=== PATIENT | female | born 1945 ===

== ENCOUNTER 2017-04-11 17:33 | Inpatient (IN) | payer MEDICARE, OTHER ==
[2017-04-11 17:46] VITALS: BMI 26.6
--- NOTE | 2017-04-11 17:51 | ED PDOC ---
Arrival/HPI - General Chief Complaint: Female Genitourinary Time Seen by Provider: 04/11/17 17:50 Historian: Family (daughter) - History of Present Illness Narrative History of Present Illness (Text): 04/11/17 17:50 This 71 yo female with pmh dementia, Stroke, DM, HTN, chf, s/p cardiac bypass, Peg tube, Shen catheter, sacral decubitus ulcer stage 4, is brought to this Emergency department by BLS for hematuria, and fever since this morning. Daughter stated patient look sick this morning. Daughter stated that patient recently moved to her house in [place]. Time/Duration: Other (see hpi) Context: Home Past Medical History - Provider Review Nursing Documentation Reviewed: Yes - Infectious Disease Hx of Infectious Diseases: None - Cardiac Hx Cardiac Disorders: Yes Hx Hypertension: Yes - Pulmonary Hx Respiratory Disorders: No - Neurological Hx Neurological Disorder: Yes HX Cerebrovascular Accident: Yes (oct 2016) Other/Comment: dysphagia - HEENT Hx HEENT Disorder: Yes Other/Comment: glasses - Endocrine/Metabolic Hx Endocrine Disorders: Yes Hx Diabetes Mellitus Type 2: Yes - Hematological/Oncological Hx Blood Disorders: No - Integumentary Hx Dermatological Disorder: Yes Other/Comment: unstageable sacral wound, ongoing as per pts daughter. - Musculoskeletal/Rheumatological Hx Musculoskeletal Disorders: Yes Other/Comment: bedridden - Gastrointestinal Hx Gastrointestinal Disorders: Yes Hx Diverticulitis: Yes Other/Comment: PEG tube - Genitourinary/Gynecological Hx Genitourinary Disorders: Yes Hx Incontinence: Yes Other/Comment: shen present - Psychiatric Hx Psychophysiologic Disorder: Yes Hx Depression: Yes Hx Substance Use: No - Surgical History Other/Comment: peg placement - Anesthesia Hx Anesthesia: Yes Hx Anesthesia Reactions: No Family/Social History - Physician Review Nursing Documentation Reviewed: Yes Family/Social History: Other (noncontributory) Smoking Status: Never Smoked Hx Alcohol Use: No Hx Substance Use: No Allergies/Home Meds Allergies/Adverse Reactions: Allergies Penicillins Allergy (Verified 04/11/17 17:45) REDNESS Home Medications: Home Meds Medication Instructions Recorded Confirmed Acetaminophen [Tylenol 160mg/5ml 20.3 ml PEG PRN PRN 04/11/17 04/11/17 Oral Soln] Acetaminophen [Tylenol 325mg tab] 2 tab PEG PRN PRN 04/11/17 04/11/17 Ascorbic Acid [Vitamin C] 500 mg PEG BID 04/11/17 04/11/17 Atorvastatin [Lipitor] 80 mg PEG HS 04/11/17 04/11/17 Clopidogrel [Plavix] 75 mg PEG DAILY 04/11/17 04/11/17 Enoxaparin Sodium [Lovenox] 40 mg SQ DAILY 04/11/17 04/11/17 Famotidine [Pepcid] 20 mg PEG DAILY 04/11/17 04/11/17 Losartan [Cozaar] 25 mg PEG DAILY 04/11/17 04/11/17 Metoprolol Succinate [Toprol XL] 50 mg PEG BID 04/11/17 04/11/17 Multivit-Minerals/Ferrous Fum 5 ml PEG DAILY 04/11/17 04/11/17 [Multivitamin Liquid] Zinc Acetate [Galzin] 220 mg PEG DAILY 04/11/17 04/11/17 traMADol [Ultram] 50 mg PEG PRN PRN 04/11/17 04/11/17 Review of Systems - Review of Systems Systems not reviewed;Unavailable: Other (information taken from daughter) Constitutional: Fatigue, Fevers Eyes: Normal ENT: Normal Respiratory: Normal Cardiovascular: Normal Gastrointestinal: Normal Genitourinary Female: Hematuria. absent: Vaginal Bleeding, Vaginal Discharge Musculoskeletal: Normal Skin: Normal Neurological: Normal Endocrine: Normal Hemo/Lymphatic: Normal Psychiatric: Normal Physical Exam Vital Signs Temp Pulse Resp BP Pulse Ox 04/11/17 22:16 98.8 F 98 H 18 122/61 96 04/11/17 21:08 99 H 18 130/65 96 04/11/17 18:34 100.6 F H 106 H 18 122/66 95 Temperature: Afebrile Blood Pressure: Normal Pulse: Regular Respiratory Rate: Normal Appearance: Positive for: Well-Appearing, Non-Toxic, Comfortable Pain Distress: None Mental Status: Positive for: other (Baseline dementia) - Systems Exam Head: Present: Atraumatic, Normocephalic Pupils: Present: PERRL Extroacular Muscles: Present: EOMI Conjunctiva: Present: Normal Mouth: Present: Moist Mucous Membranes Neck: Present: Normal Range of Motion. No: Meningeal Signs Respiratory/Chest: Present: Clear to Auscultation, Good Air Exchange. No: Respiratory Distress, Accessory Muscle Use, Wheezes, Retracting, Rhonchi Cardiovascular: Present: Regular Rate and Rhythm, Normal S1, S2. No: Murmurs Abdomen: Present: Normal Bowel Sounds, Feeding Tubes. No: Tenderness, Distention, Peritoneal Signs, Rebound, Guarding Back: Present: Normal Inspection. No: CVA Tenderness Upper Extremity: Present: Normal Inspection, Normal ROM. No: Cyanosis, Edema Lower Extremity: Present: Normal Inspection, Normal ROM. No: Edema Neurological: Present: GCS=15, CN II-XII Intact, Speech Normal, Motor Func Grossly Intact, Normal Sensory Function, Normal Cerebellar Funct, Gait Normal Skin: Present: Warm, Dry, Normal Color, Other ((+) stage 4 scaral decubitus. No drainage, no surrounding erythema). No: Rashes Psychiatric: Present: Alert, Normal Insight, Normal Concentration Medical Decision Making ED Course and Treatment: 04/11/17 23:[address] Broderick regarding regarding patient history. We reviewed labs, vs, and imaging report. He recommended medical consult Dr. Jacome, Dr. Hendrix, and Dr. Daniel for pyelo, and sacral decubitus Re-evaluation Time: 23:21 Reassessment Condition: Re-examined, Improving,but remains with symptoms - Lab Interpretations Lab Results: 04/11/17 18:10 04/11/17 18:10 Lab Results 04/11/17 20:00: Influenza Typ A,B (EIA) Negative for flu a/b 04/11/17 18:54: POC Glucose (mg/dL) 224 H 04/11/17 18:45: Urine Color Light yellow, Urine Appearance Cloudy, Urine pH 6.0 , Ur Specific [place] 1.020, Urine Protein Trace H, Urine Glucose (UA) Negative , Urine Ketones Trace H, Urine Blood Small H, Urine Nitrate Negative, Urine Bilirubin Negative, Urine Urobilinogen 0.2, Ur Leukocyte Esterase Large H, Urine RBC 10 - 15, Urine WBC 25 - 30, Ur Epithelial Cells 6 - 8, Amorphous Sediment Small, Urine Bacteria Many, Urine Other Uyeast 04/11/17 18:23: pO2 48, VBG pH 7.46 H, VBG pCO2 45.0, VBG HCO3 32.0 H, VBG Total CO2 33.4 H, VBG O2 Sat (Calc) 91.5 H, VBG Base Excess 7.1 H, VBG Potassium 4.8, Glucose 251 H, Lactate 1.6, FiO2 21.0, Sodium 134.0, Chloride 100.0, Venous Blood Potassium 4.8 04/11/17 18:10: Sodium 136, Potassium 4.7, Chloride 100, Carbon Dioxide 31, Anion Gap 11, BUN 25 H, Creatinine 0.4 L, Est GFR ( Amer) > 60, Est GFR ( Non-Af Amer) > 60, Random Glucose 239 H, Calcium 10.1, Phosphorus 4.2, Magnesium 2.0, Total Bilirubin 0.4, AST 55 H, ALT 69 H, Alkaline Phosphatase 140 H, Lactate Dehydrogenase 518, Total Creatine Kinase 53, Troponin I 0.04, NT- Pro-B Natriuret Pep 1230 H, Total Protein 6.8, Albumin 3.3, Globulin 3.4, Albumin/Globulin Ratio 1.0 L 04/11/17 18:10: PT 12.6 H, INR 1.10 H, APTT 33.3 04/11/17 18:10: WBC 11.1 H, RBC 3.79, Hgb 11.3 L, Hct 34.7 L, MCV 91.6, MCH 29.8 , MCHC 32.6, RDW 14.3, Plt Count 294, MPV 11.7 H, Gran % 74.1 H, Lymph % (Auto) 18.2 L, Johnson % (Auto) 5.9, Eos % (Auto) 1.6, Baso % (Auto) 0.2, Gran # 8.20 H, Lymph # (Auto) 2.0, Johnson # (Auto) 0.7 H, Eos # (Auto) 0.2, Baso # (Auto) 0.02 I have reviewed the lab results: Yes Interpretation: Abnormal lab values - RAD Interpretation Narrative RAD Interpretations (Text): 04/11/17 23:08 Addendum created by Adore Mora MD on 04/11/2017 11:04 PM Eastern Time ([place] & [place]) FINDINGS: The bladder is decompressed by a Shen catheter but is otherwise normal. The ureters are unremarkable bilaterally. The The uterus is not visualized, and may be atrophic or surgically absent. There is no wall thickening or pericolonic stranding to suggest colitis. No bowel obstruction. The vasculature demonstrates diffuse moderate atherosclerotic calcification. IMPRESSION: No acute pelvic abnormality. FINDINGS: Lower thorax: Small hiatal hernia. ABDOMEN: Liver: The liver is within normal limits for this noncontrast study. Gallbladder and bile ducts: There has been a cholecystectomy. No ductal dilation. Pancreas: Unremarkable. No ductal dilation. Spleen: Unremarkable. No splenomegaly. Adrenals: Unremarkable. No mass. Kidneys and ureters: Nonspecific perinephric stranding bilaterally. There is a simple cyst in the right kidney. No hydronephrosis. Stomach and bowel: Mild diverticulosis is present in the sigmoid and descending colon. There is no wall thickening or pericolonic stranding to suggest colitis. No obstruction. Appendix: No findings to suggest acute appendicitis. Normal appendix. ABDOMEN and PELVIS: Intraperitoneal space: Unremarkable. No free air. No significant fluid collection. Bones/joints: No acute fracture. No dislocation. Soft tissues: Unremarkable. Vasculature: The aorta demonstrates mild atherosclerotic calcification. No abdominal aortic aneurysm. Lymph nodes: Unremarkable. No enlarged lymph nodes. Tubes, lines and devices: A gastric feeding tube is in appropriate position. IMPRESSION: No acute findings. Right renal cyst. Nonspecific perinephric stranding bilaterally. Cholecystectomy. EXAM: CT Chest Without Intravenous Contrast FINDINGS: Lungs: There is subpleural atelectasis of the dependent portions of the lungs. No focal consolidation. Pleural space: Unremarkable. No pneumothorax. No significant effusion. Heart: There are sternal wires consistent with previous sternotomy incision and CABG. Coronary artery calcification. No significant pericardial effusion. Bones/joints: Unremarkable. No acute fracture. No dislocation. Soft tissues: Unremarkable. Vasculature: The aorta demonstrates mild atherosclerotic calcification. Lymph nodes: Unremarkable. No enlarged lymph nodes. IMPRESSION: No significant acute intrathoracic abnormality. Radiology Orders: 04/11/17 17:51 CHEST PORTABLE [RAD] Stat 04/11/17 19:59 CHEST,ABDOMEN, PELVIS W/O CONT [CT] Stat - EKG Interpretation Interpreted by ED Physician: Yes (Sinus tachycardia @ [address] changes) Type: 12 lead EKG Comparison: No previous EKG avail. - Medication Orders Current Medication Orders: Discontinued Medications Acetaminophen (Tylenol 160mg/5ml Oral Soln) 960 mg PO STAT STA Stop: 04/11/17 18:36 Last Admin: 04/11/17 18:46 Dose: 960 mg Levofloxacin/Dextrose (Levaquin 750mg) 750 mg in 150 mls @ 100 mls/hr IVPB STAT STA PRN Reason: Protocol Stop: 04/11/17 21:26 Last Admin: 04/11/17 20:36 Dose: 100 mls/hr eMAR Start Stop Document 04/11/17 20:36 AD (Rec: 04/11/17 20:36 [email or web address] Intravenous Solution Start Date 04/11/17 Start Time 20:36 Sodium Chloride (Sodium Chloride 0.9%) 500 mls @ 999 mls/hr IV .Q31M STA Stop: 04/11/17 20:30 Last Admin: 04/11/17 20:36 Dose: 999 mls/hr eMAR Start Stop Document 04/11/17 20:36 AD (Rec: 04/11/17 20:36 [email or web address] Intravenous Solution Start Date 04/11/17 Start Time 20:36 Oseltamivir Phosphate (Tamiflu Cap) 75 mg PO STAT STA PRN Reason: Protocol Stop: 04/11/17 19:38 Last Admin: 04/11/17 19:40 Dose: 75 mg Disposition/Present on Arrival - Present on Arrival Any Indicators Present on Arrival: No History of DVT/PE: No History of Uncontrolled Diabetes: No Urinary Catheter: Yes (placed 2 weeks ago by visiting RN) History of Decub. Ulcer: Yes History Surgical Site Infection Following: None - Disposition Have Diagnosis and Disposition been Completed?: Yes Diagnosis: Pyelonephritis, Sacral decubitus ulcer, stage IV Disposition: HOSPITALIZED Disposition Time: 23:11 Patient Plan: Admission Patient Problems: Current Active Problems Problem Status Onset Pyelonephritis Acute Condition: STABLE Referrals: Lake Broderick DO [Staff Provider] - Follow up with primary Forms: [employer] ([place])
[2017-04-11 18:28] LABS: VENOUS BLOOD GAS BASE EXCESS 7.1 mmol/L (0.0-2.0); VENOUS BLOOD GAS PO2 48 mm/Hg (30-55); VENOUS BLOOD PH 7.46 (7.32-7.43)
[2017-04-11 18:35] LABS: BASO # 0.02 K/mm3 (0.0-2.0); BASO % 0.2 % (0.0-3.0); EOS # 0.2 (0.0-0.7); EOS % 1.6 % (1.5-5.0); GRAN # 8.2 (1.4-6.5); GRAN % 74.1 % (50.0-68.0); HEMOGLOBIN 11.3 g/dL (12.0-16.0); LYMPH % 18.2 % (22.0-35.0); MEAN CELL VOLUME 91.6 fl (80.0-105.0); MEAN CORPUSCULAR HEMOGLOBIN 29.8 pg (25.0-35.0); MEAN CORPUSCULAR HGB CONC 32.6 g/dl (31.0-37.0); MEAN PLATELET VOLUME 11.7 fl (7.0-11.0); MONO # 0.7 (0.1-0.6); MONO % 5.9 % (1.0-6.0); RBC 3.79 10^6/uL (3.5-6.1); RED CELL DISTRIBUTION WIDTH 14.3 % (11.5-14.5); WHITE BLOOD COUNT 11.1 10^3/ul (4.5-11.0)
[2017-04-11] MEDS ORDERED: Acetaminophen 160 mg/5 ml UD PO STA (18:35)
[2017-04-11 18:42] LABS: ALBUMIN 3.3 g/dL (3.0-4.8); ALT/SGPT 69 U/L (7-56); AST/SGOT 55 U/L (14-36); BLOOD UREA NITROGEN 25 mg/dL (7-21); CALCIUM 10.1 mg/dL (8.4-10.5); GFR AFRICAN-AMERICAN > 60; GFR NON-AFRICAN AMERICAN > 60
[2017-04-11 18:48] LABS: INR 1.1 (0.93-1.08); PARTIAL THROMBOPLASTIN TIME 33.3 Seconds (25.1-36.5); PROTHROMBIN TIME 12.6 SECONDS (9.4-12.5)
[2017-04-11 18:54] LABS: B-TYPE NATRIURETIC PEPTIDE 1230 pg/mL (0-450); TROPONIN I 0.04 ng/mL
[2017-04-11 19:01] LABS: URINE BILIRUBIN NEGATIVE (NEGATIVE); URINE BLOOD SMALL (NEGATIVE); URINE GLUCOSE (UA) NEGATIVE (NEGATIVE); URINE LEUKOCYTE ESTERASE LARGE Leu/uL (NEGATIVE); URINE NITRATE NEGATIVE (NEGATIVE); URINE PROTEIN TRACE mg/dL (<30 mg/dL); URINE UROBILINOGEN 0.2 E.U./dL (<1 E.U./dL)
[2017-04-11 19:02] LABS: URINE APPEARANCE CLOUDY (CLEAR); URINE COLOR LIGHT YELLOW (YELLOW)
[2017-04-11 19:09] LABS: URINE BACTERIA MANY (NEG); URINE WBC 25 - 30 /hpf (0-6)
[2017-04-11 19:10] LABS: URINE AMORPHOUS SEDIMENT SMALL
[2017-04-11] MEDS ORDERED: levoFLOXacin 750 mg in D5W 750 MG/150 ML BAG IVPB STA (19:57)
[2017-04-11] MEDS ORDERED: Sodium Chloride 0.9% 500 ML IV STA (20:00)
--- NOTE | 2017-04-11 22:55 | CT ---
PROVIDED CLINICAL HISTORY: Pain; Abdominal pain; Acute; Chest pain; Type not specified; Additional info: Fever TECHNIQUE: A CT scan of the abdomen from the diaphragm to the iliac crests was performed. Sagittal and coronal reconstructed images are not included. No prior studies are available for comparison. COMPARISON: No relevant prior studies available. FINDINGS: Lower thorax: Small hiatal hernia. ABDOMEN: Liver: The liver is within normal limits for this noncontrast study. Gallbladder and bile ducts: There has been a cholecystectomy. No ductal dilation. Pancreas: Unremarkable. No ductal dilation. Spleen: Unremarkable. No splenomegaly. Adrenals: Unremarkable. No mass. Kidneys and ureters: Nonspecific perinephric stranding bilaterally. There is a simple cyst in the right kidney. No hydronephrosis. Stomach and bowel: Mild diverticulosis is present in the sigmoid and descending colon. There is no wall thickening or pericolonic stranding to suggest colitis. No obstruction. Appendix: No findings to suggest acute appendicitis. Normal appendix. ABDOMEN and PELVIS: Intraperitoneal space: Unremarkable. No free air. No significant fluid collection. Bones/joints: No acute fracture. No dislocation. Soft tissues: Unremarkable. Vasculature: The aorta demonstrates mild atherosclerotic calcification. No abdominal aortic aneurysm. Lymph nodes: Unremarkable. No enlarged lymph nodes. Tubes, lines and devices: A gastric feeding tube is in appropriate position. IMPRESSION: No acute findings. Right renal cyst. Nonspecific perinephric stranding bilaterally. Cholecystectomy. EXAM: CT Chest Without Intravenous Contrast CLINICAL HISTORY: 71 years old, female; Pain; Abdominal pain; Acute; Chest pain; Type not specified; Additional info: Fever TECHNIQUE: Axial computed tomography images of the chest without intravenous contrast. All CT scans at this facility use one or more dose reduction techniques, viz.: automated exposure control; ma/kV adjustment per patient size (including targeted exams where dose is matched to indication; i.e. head); or iterative reconstruction technique. Coronal reformatted images were created and reviewed. COMPARISON: - CHEST PORTABLE 2017-04-11 19:02 FINDINGS: Lungs: There is subpleural atelectasis of the dependent portions of the lungs. No focal consolidation. Pleural space: Unremarkable. No pneumothorax. No significant effusion. Heart: There are sternal wires consistent with previous sternotomy incision and CABG. Coronary artery calcification. No significant pericardial effusion. Bones/joints: Unremarkable. No acute fracture. No dislocation. Soft tissues: Unremarkable. Vasculature: The aorta demonstrates mild atherosclerotic calcification. Lymph nodes: Unremarkable. No enlarged lymph nodes. IMPRESSION: No significant acute intrathoracic abnormality.
[2017-04-11] MEDS ORDERED: Insulin Detemir 100 units/ml Vial (Levemir) SC STA (23:51)
[2017-04-12] MEDS ORDERED: Insulin Regular 1 UNITS/0.01 ML ML IVP PRN (00:03)
--- NOTE | 2017-04-12 08:50 | PCM.URO ---
Urology Progress Note - Objective Lab Studies: Reviewed (full note to follow thanks for gu consult) Lab Results Last 24 Hours: Laboratory Results - last 24 hr 04/12/17 04/12/17 00:10 06:15 POC Glucose (mg/dL) 196 H 206 H Intake & Output: Intake & Output 04/11/17 04/12/17 04/12/17 18:59 06:59 18:59 Output Total 725 Balance -725 Output: Urine 725 Urethral ([place]) 725 Vital Signs: Vital Signs - 24 hr 04/12/17 04/12/17 04/12/17 00:50 01:30 02:14 Pulse Rate 101 H 101 H Respiratory 18 18 20 Rate Blood Pressure 130/72 126/82 O2 Sat by Pulse 96 96 Oximetry
--- NOTE | 2017-04-12 09:06 | CARD ---
APPROVED REPORT EKG Measurement Heart [id number] NM [id number] <Conclusion> Sinus tachycardia ST & T wave abnormality in Leads 2,3,AVF.
[2017-04-12] MEDS ORDERED: Gentamicin 190 MG in Sodium Chloride 0.9% 100 ML IVPB ONE (09:30)
[2017-04-12] MEDS ORDERED: Gentamicin 80 mg/2mL Inj. IVPB ONE (09:30)
--- NOTE | 2017-04-12 09:52 | CP.PCM.CON ---
History of Present Illness - History of Present Illness History of Present Illness: General surgery consult note for Dr. Daniel Reason for consult: Sacral Decubitus Ulcer HPI: 71 year old female with pertinent past medical history of CVA with dementia, Diabetes, and PEG tube presented with a one day duration of fever and hematuria. Surgery was consulted for her sacral decubitus ulcer. History and review of systems limited secondary to patient's mental status. Surgical History: CABG, PEG tube Medical History: CVA, DM, CAD s/p CABG, CHF, HTN, Allergies: PCN's Social History: Based on chart review, never smoker, no alcohol, no illicits Family History: Non-contributory Medications: Tramadol, Zinc, MV, Metoprolol, Losartan, Famotidine, Lovenox , Plavix, Lipitor, Vit C, ACEP ROS: Limited 2/2 patient's mental status Past Patient History - Infectious Disease Hx of Infectious Diseases: None - Past Social History Smoking Status: Never Smoked - CARDIAC Hx Congestive Heart Failure: Yes Hx Hypertension: Yes - PULMONARY Hx Respiratory Disorders: No - NEUROLOGICAL HX Cerebrovascular Accident: Yes - HEENT Hx HEENT Problems: Yes Other/Comment: glasses - ENDOCRINE/METABOLIC Hx Diabetes Mellitus Type 2: Yes - HEMATOLOGICAL/ONCOLOGICAL Hx Blood Disorders: No - INTEGUMENTARY Hx Dermatological Problems: Yes Other/Comment: unstageable sacral wound, ongoing as per pts daughter. - MUSCULOSKELETAL/RHEUMATOLOGICAL Hx Falls: Yes - GASTROINTESTINAL Hx Gastrointestinal Disorders: Yes Hx Diverticulitis: Yes Other/Comment: PEG tube - GENITOURINARY/GYNECOLOGICAL Hx Genitourinary Disorders: Yes Hx Incontinence: Yes Other/Comment: shen present - PSYCHIATRIC Hx Depression: Yes - SURGICAL HISTORY Other/Comment: peg placement - ANESTHESIA Hx Anesthesia: Yes Hx Anesthesia Reactions: No Meds Allergies/Adverse Reactions: Allergies Allergy/AdvReac Type Severity Reaction Status Date / Time Penicillins Allergy REDNESS Verified 04/11/17 17:45 - Medications Medications: Current Medications Atorvastatin Calcium (Lipitor) 80 mg PEG HS [facility] Clopidogrel Bisulfate (Plavix) 75 mg PEG DAILY [facility] Enoxaparin Sodium (Lovenox) 40 mg SC DAILY [facility] Famotidine (Pepcid) 20 mg PEG DAILY [facility] Gentamicin Sulfate 190 mg/ (Sodium Chloride) 104.75 mls @ 104.75 mls/hr IVPB ONCE ONE Stop: 02/28/18 10:29 Levofloxacin/Dextrose (Levaquin 750mg) 750 mg IVPB DAILY [facility] Losartan Potassium (Cozaar) 25 mg PEG DAILY [facility] Metoprolol Succinate (Toprol Xl) 50 mg PO BID [facility] Non-Formulary Medication (Multivit-Minerals/Ferrous Fum [Multivitamin Liquid]) 5 ml PEG DAILY [facility] Tramadol HCl (Ultram) 50 mg GT Q8 PRN PRN Reason: Pain, moderate (4-7) Physical Exam - Additional Findings Additional findings: Physical Exam: Vital Signs as below Const'l: awake alert & oriented x 0, no acute distress Head/Neck: neck supple, no jvd, trachea midline, carotid midline, no cervical/head mass Eyes: pupils equally reactive to light and accommodation, nonicteric sclera, extraocular intact ENT: auditory acuity grossly intact, throat not congested, no nasal deformity Cardio: regular rate, regular rhythm, no murmurs rubs gallops, no carotid bruit, normal s1, s2 Pulm: no accessory muscle use, equal normal breath sounds bilaterally, clear to ausculation bilaterally Abd: soft non tender non-distended, normal bowel sounds x 4 quadrants, no palpable masses Back: patient has a sacral ulcer in the region of L4-S2 Extr: no edema, no cyanosis, no calf tenderness, no lesions, no varicosities Neuro: cranial nerves II-XII grossly intact, upper extremity andlower extremity 5/5muscle strengthbilaterally, no loss of sensation in upper extremities, lower extremities bilaterally Results - Vital Signs Recent Vital Signs: Last Vital Signs Temp 98.8 F 04/11/17 22:16 Pulse 101 H 04/12/17 01:30 Resp 20 04/12/17 02:14 BP 126/82 04/12/17 01:30 Pulse Ox 96 04/12/17 01:30 - Labs Result Diagrams: 04/11/17 18:10 04/11/17 18:10 Labs: Laboratory Results - last 24 hr 04/12/17 04/12/17 00:10 06:15 POC Glucose (mg/dL) 196 H 206 H Assessment & Plan - Assessment and Plan (Free Text) Assessment: 71 year old female with multiple comorbidities presents with fever and hematuria , has stage IV sacral decubitus ulcer. Plan: -Turn q2 -Air mattress -Antibiotics per primary -Offloading boot on heels -Have already set up wound vac for home, patient has a very strong support system at home -OR tomorrow for possible debridement. -NPO after midnight
--- NOTE | 2017-04-12 09:58 | RAD ---
HISTORY: Sepsis Patient COMPARISON: No prior. FINDINGS: LUNGS: No active pulmonary disease. PLEURA: No significant pleural effusion identified, no pneumothorax apparent. CARDIOVASCULAR: Normal. OSSEOUS STRUCTURES: Sternal wires VISUALIZED UPPER ABDOMEN: Normal. OTHER FINDINGS: None. IMPRESSION: No active disease.
[2017-04-12] MEDS ORDERED: levoFLOXacin 750 mg in D5W 150 ML BAG IVPB SCH (10:00)
[2017-04-12] MEDS ORDERED: Enoxaparin 150 mg Syringe SC SCH (10:00)
[2017-04-12] MEDS ORDERED: MULTIVIT MINERALS PEG SCH (10:00)
[2017-04-12] MEDS ORDERED: Multi Vitamins 15 mL UD Oral Solution PO SCH (10:00)
[2017-04-12] MEDS ORDERED: FERROUS FUM PEG SCH (10:00)
[2017-04-12] MEDS: MULTIVIT MINERALS PEG SCH (10:07)
[2017-04-12] MEDS: Enoxaparin 40 mg Syringe SC SCH (10:07)
[2017-04-12] MEDS: FERROUS FUM PEG SCH (10:07)
[2017-04-12] MEDS: Metoprolol Succinate 50 mg XL Tab PO SCH ×2 (10:08→17:41)
--- NOTE | 2017-04-12 10:22 | CP.PCM.CON ---
Past Patient History - Infectious Disease Hx of Infectious Diseases: None - Past Social History Smoking Status: Never Smoked - CARDIAC Hx Congestive Heart Failure: Yes Hx Hypertension: Yes - PULMONARY Hx Respiratory Disorders: No - NEUROLOGICAL HX Cerebrovascular Accident: Yes - HEENT Hx HEENT Problems: Yes Other/Comment: glasses - ENDOCRINE/METABOLIC Hx Diabetes Mellitus Type 2: Yes - HEMATOLOGICAL/ONCOLOGICAL Hx Blood Disorders: No - INTEGUMENTARY Hx Dermatological Problems: Yes Other/Comment: unstageable sacral wound, ongoing as per pts daughter. - MUSCULOSKELETAL/RHEUMATOLOGICAL Hx Falls: Yes - GASTROINTESTINAL Hx Gastrointestinal Disorders: Yes Hx Diverticulitis: Yes Other/Comment: PEG tube - GENITOURINARY/GYNECOLOGICAL Hx Genitourinary Disorders: Yes Hx Incontinence: Yes Other/Comment: ac present - PSYCHIATRIC Hx Depression: Yes - SURGICAL HISTORY Other/Comment: peg placement - ANESTHESIA Hx Anesthesia: Yes Hx Anesthesia Reactions: No Meds Allergies/Adverse Reactions: Allergies Allergy/AdvReac Type Severity Reaction Status Date / Time Penicillins Allergy REDNESS Verified 04/11/17 17:45 - Medications Medications: Current Medications Atorvastatin Calcium (Lipitor) 80 mg PEG HS [facility] Clopidogrel Bisulfate (Plavix) 75 mg PEG DAILY [facility] Enoxaparin Sodium (Lovenox) 40 mg SC DAILY [facility] Famotidine (Pepcid) 20 mg PEG DAILY [facility] Gentamicin Sulfate 190 mg/ (Sodium Chloride) 104.75 mls @ 104.75 mls/hr IVPB ONCE ONE Stop: 04/12/17 10:29 Levofloxacin/Dextrose (Levaquin 750mg) 750 mg IVPB DAILY [facility] Losartan Potassium (Cozaar) 25 mg PEG DAILY [facility] Metoprolol Succinate (Toprol Xl) 50 mg PO BID [facility] Non-Formulary Medication (Multivit-Minerals/Ferrous Fum [Multivitamin Liquid]) 5 ml PEG DAILY [facility] Tramadol HCl (Ultram) 50 mg GT Q8 PRN PRN Reason: Pain, moderate (4-7) Results - Vital Signs Recent Vital Signs: Last Vital Signs Temp 98.8 F 04/11/17 22:16 Pulse 101 H 04/12/17 01:30 Resp 20 04/12/17 02:14 BP 126/82 04/12/17 01:30 Pulse Ox 96 04/12/17 01:30 - Labs Result Diagrams: 04/11/17 18:10 04/11/17 18:10 Labs: Laboratory Results - last 24 hr 04/12/17 04/12/17 00:10 06:15 POC Glucose (mg/dL) 196 H 206 H Assessment & Plan - Assessment and Plan (Free Text) Assessment: IMP: UTI Hematuria full note t/f Thank you.YS - Date & Time Date: 04/12/17 Time: 10:22
--- NOTE | 2017-04-12 17:18 | CP.PCM.CON ---
History of Present Illness - History of Present Illness History of Present Illness: 71 year old female with PMH of DM, HTN, chronic CHF, CAD S/P CABG, S/P PEG tube placement S/P shen catheter placement, sacral decubitus ulcer stage 4, dementia , history of CVA was brought in to [facility] from home for blood in the urine and possible fever. The patient was also noted by daughter to be ill-appearing. There is no note of fever, no vomiting, no diarrhea, no convulsions , no loss of consciousness. Full review of systems is not obtainable because of patient's dementia. Infectious Diseases consult is requested to further evaluate and manage. Review of Systems - Review of Systems All systems: reviewed and no additional remarkable complaints except (as per HPI ) Past Patient History - Infectious Disease Hx of Infectious Diseases: None - Past Social History Smoking Status: Never Smoked - CARDIAC Hx Congestive Heart Failure: Yes Hx Hypertension: Yes - PULMONARY Hx Respiratory Disorders: No - NEUROLOGICAL HX Cerebrovascular Accident: Yes - HEENT Hx HEENT Problems: Yes Other/Comment: glasses - ENDOCRINE/METABOLIC Hx Diabetes Mellitus Type 2: Yes - HEMATOLOGICAL/ONCOLOGICAL Hx Blood Disorders: No - INTEGUMENTARY Hx Dermatological Problems: Yes Other/Comment: unstageable sacral wound, ongoing as per pts daughter. - MUSCULOSKELETAL/RHEUMATOLOGICAL Hx Falls: Yes - GASTROINTESTINAL Hx Gastrointestinal Disorders: Yes Hx Diverticulitis: Yes Other/Comment: PEG tube - GENITOURINARY/GYNECOLOGICAL Hx Genitourinary Disorders: Yes Hx Incontinence: Yes Other/Comment: shen present - PSYCHIATRIC Hx Depression: Yes - SURGICAL HISTORY Other/Comment: peg placement - ANESTHESIA Hx Anesthesia: Yes Hx Anesthesia Reactions: No Meds Allergies/Adverse Reactions: Allergies Allergy/AdvReac Type Severity Reaction Status Date / Time Penicillins Allergy REDNESS Verified 04/11/17 17:45 - Medications Medications: Current Medications Atorvastatin Calcium (Lipitor) 80 mg PEG HS COUNTS INCLUDE 234 BEDS AT THE [facility] Clopidogrel Bisulfate (Plavix) 75 mg PEG DAILY COUNTS INCLUDE 234 BEDS AT THE [facility] Enoxaparin Sodium (Lovenox) 40 mg SC DAILY COUNTS INCLUDE 234 BEDS AT THE [facility] Famotidine (Pepcid) 20 mg PEG DAILY COUNTS INCLUDE 234 BEDS AT THE [facility] Levofloxacin/Dextrose (Levaquin 750mg) 750 mg IVPB DAILY COUNTS INCLUDE 234 BEDS AT THE [facility] Losartan Potassium (Cozaar) 25 mg PEG DAILY COUNTS INCLUDE 234 BEDS AT THE [facility] Metoprolol Succinate (Toprol Xl) 50 mg PO BID COUNTS INCLUDE 234 BEDS AT THE [facility] Non-Formulary Medication (Multivit-Minerals/Ferrous Fum [Multivitamin Liquid]) 5 ml PEG DAILY COUNTS INCLUDE 234 BEDS AT THE [facility] Tramadol HCl (Ultram) 50 mg GT Q8 PRN PRN Reason: Pain, moderate (4-7) Physical Exam - Constitutional Appears: Chronically Ill - Head Exam Head Exam: NORMAL INSPECTION - ENT Exam ENT Exam: Mucous Membranes Moist - Neck Exam Neck exam: Negative for: Meningismus - Respiratory Exam Respiratory Exam: Decreased Breath Sounds - Cardiovascular Exam Cardiovascular Exam: +S1, +S2 - GI/Abdominal Exam GI & Abdominal Exam: Soft. absent: Tenderness Results - Vital Signs Recent Vital Signs: Last Vital Signs Temp 98.8 F 04/11/17 22:16 Pulse 101 H 04/12/17 01:30 Resp 20 04/12/17 02:14 BP 126/82 04/12/17 01:30 Pulse Ox 96 04/12/17 01:30 - Labs Result Diagrams: 04/11/17 18:10 04/11/17 18:10 Labs: Laboratory Results - last 24 hr 04/12/17 04/12/17 00:10 06:15 POC Glucose (mg/dL) 196 H 206 H Assessment & Plan - Assessment and Plan (Free Text) Plan: Assessment Systemic Inflammatory Response Syndrome, consider sepsis due to UTI, complicated with indwelling Shen catheter DM HTN chronic CHF CAD S/P CABG S/P PEG tube placement S/P shen catheter placement sacral decubitus ulcer stage 4 dementia history of CVA Plan Started the patient on a dose of Gentamicin and patient has been started on Levaquin pending blood and urine cx would recommend change of Shen catheter when feasible will monitor clinically
[2017-04-12] MEDS: Insulin Lispro (humaLOG) LOW Coverage SC SCH (17:40)
[2017-04-12] MEDS: Collagenase 250 Units/gm Ointment(30 gm) TOP SCH (17:41)
[2017-04-12] MEDS: Insulin Detemir 100 units/ml Vial (Levemir) SC SCH (22:02)
[2017-04-13] MEDS: Lactated Ringer's 1,000 ML IV SCH ×2 (00:06→09:42)
[2017-04-13 07:11] LABS: HEMOGLOBIN 10.1 g/dL (12.0-16.0); MEAN CELL VOLUME 91.2 fl (80.0-105.0); MEAN CORPUSCULAR HEMOGLOBIN 28.8 pg (25.0-35.0); MEAN CORPUSCULAR HGB CONC 31.6 g/dl (31.0-37.0); MEAN PLATELET VOLUME 11.3 fl (7.0-11.0); RBC 3.51 10^6/uL (3.5-6.1); RED CELL DISTRIBUTION WIDTH 14.3 % (11.5-14.5)
[2017-04-13 07:39] LABS: ALB/GLOB RATIO 0.9 (1.1-1.8); ALBUMIN 3.3 g/dL (3.0-4.8); ALT/SGPT 44 U/L (7-56); AST/SGOT 25 U/L (14-36); BLOOD UREA NITROGEN 17 mg/dL (7-21); GFR AFRICAN-AMERICAN > 60; GFR NON-AFRICAN AMERICAN > 60
--- NOTE | 2017-04-13 08:06 | HP ---
HISTORY OF PRESENT ILLNESS: I was called to the ER to see her. I saw her on the floor with her daughter present. She is a 71-year-old female with a past medical history of dementia, stroke, diabetes, hypertension, CHF, status post cardiac bypass, PEG tube, Rogers catheter, sacral decubitus ulcer stage IV, borderline hematuria and has worsening stage IV ulcer. She was sick, not doing as well, not as alert, and it looks like she might need debridement of the ulcer. She had a CVA in October 2016, nonverbal, contracted, diabetes, unstageable sacral wound, bedridden, feeding tube, diverticulitis history, incontinence, depression, PEG placements. SOCIAL HISTORY: Nonsmoker, nondrinker, no alcohol. ALLERGIES: TO PENICILLIN. MEDICATIONS: On Tylenol, vitamin C, Lipitor, Plavix, Lovenox, Pepcid, Cozaar, Toprol, iron, zinc and Ultram. REVIEW OF SYSTEMS: She is nonverbal. Difficult to get a complete review of systems. Her daughter helped. There was fatigue and fevers at home. No changes in eyes, heart, or lungs as far as the daughter can say. Hematuria was present. PHYSICAL EXAMINATION: VITAL SIGNS: She has a 100.6 temperature, 106 pulse, 18 respiratory rate, 122/66 blood pressure, 90% O2 sat. GENERAL: She is in bed, contracted. No apparent toxic looking. Dementia is at baseline. HEENT: Head is atraumatic, normocephalic. Extraocular muscles are intact. Throat is moist. HEART: Regular rate. Normal S1, S2. LUNGS: Decreased breath sounds bilaterally. No apparent wheezing, rhonchi or rales. ABDOMEN: She has a feeding tube. Soft. Positive bowel sounds. EXTREMITIES: Contracted. No edema. NEUROLOGIC: GCS is 15. Her eyes were open. She is alert. SKIN: She has an unstageable/stage IV sacral decubitus. Probably we will need debridement and even a wound VAC. LABORATORY DATA: She has multiple labs. She is negative for the flu. She has 11.1 white count, 11.3 hemoglobin, 34.7 hematocrit with 294 platelets. INR is 1.1. Blood sugar 251, sodium 136, potassium 4.7, BUN 25, creatinine 0.4. With some IV fluids, blood sugar was 206, calcium 10.1, phosphorous 4.2, magnesium 2. Total bili is 0.4. AST is 65, ALT is 69, alk phos 140. Lactate dehydrogenase is 518. Total creatinine kinase is troponin I is 0.04, BNP was 1230, little bit elevated. Large leukocytes, many bacteria. She will have consults with Infectious Disease for IV antibiotics, Surgery for her sacral wound and for the possible pyelo, Urology, to put back her on medications on Levaquin IV. She will be put back on Glucerna 5 cans a day, is what she gets. We will check her labs tomorrow or watch very closely on Robin for infected sacral ulcer, UTI, possible pyelo with hematuria. Lake Broderick DO MTDD
[2017-04-13 09:37] LABS: INR 1.22 (0.93-1.08); PARTIAL THROMBOPLASTIN TIME 30.2 Seconds (25.1-36.5); PROTHROMBIN TIME 14.1 SECONDS (9.4-12.5)
[2017-04-13] MEDS: Aztreonam 1 Gm in NS 100mL 100 ML IVPB SCH ×3 (09:42→22:41)
[2017-04-13] MEDS: Insulin Lispro (humaLOG) LOW Coverage SC SCH ×4 (09:48→22:05)
--- NOTE | 2017-04-13 11:38 | CARD ---
APPROVED REPORT EXAM: Two-dimensional and M-mode echocardiogram with Doppler and color Doppler. INDICATION Pre-Op 2D DIMENSIONS Left Atrium (2D)4.7 (1.6-4.0cm)IVSd1.2 (0.7-1.1cm) LVDd5.1 (3.9-5.9cm)PWd1.1 (0.7-1.1cm) LVDs4.4 (2.5-4.0cm)FS (%) 14.0 % LVEF (%)30.0 (>50%) M-Mode DIMENSIONS Aortic Root2.90 (2.2-3.7cm)Aortic Cusp Exc.1.50 (1.5-2.0cm) Aortic Valve AoV Peak Afblkcdp629.0cm/Jaelyn Peak GR.14mmHg Mitral Valve E/A ratio0.0 TDI E/Lateral E'0.0E/Medial E'0.0 Pulmonary Valve PV Peak Idxubgfn60.7cm/sPV Peak Grad.3mmHg Tricuspid Valve TR Peak Itgyldad522nu/sRAP [id number] Peak Gr.36mmHg [id number] LEFT VENTRICLE The left ventricle is normal size. There is normal left ventricular wall thickness. The systolic function is severely impaired. Omer-Septal hypokinesis Transmitral Doppler flow pattern is abnormal. No left ventricle thrombus noted on this study. RIGHT VENTRICLE The right ventricle is normal size. There is normal right ventricular wall thickness. The right ventricular systolic function is normal. ATRIA The left atrium is mildly dilated. The right atrium is mildly dilated. AORTIC VALVE The aortic valve is moderately thickened. No aortic regurgitation is present. There is no aortic valvular stenosis. MITRAL VALVE The mitral valve is moderately thickened. Mitral regurgitation is moderate. TRICUSPID VALVE There is mild tricuspid regurgitation. There is mild to moderate pulmonary hypertension. GREAT VESSELS The aortic root is normal in size. PERICARDIAL EFFUSION There is a trace circumferential pericardial effusion. <Conclusion> Ischemic Cardiomyopathy There is normal left ventricular wall thickness. The systolic function is severely impaired. Omer-Septal hypokinesis No left ventricle thrombus noted on this study. Mitral regurgitation is moderate. There is mild tricuspid regurgitation. There is mild to moderate pulmonary hypertension.
[2017-04-13] MEDS: FERROUS FUM PEG SCH (11:45)
[2017-04-13] MEDS: MULTIVIT MINERALS PEG SCH (11:45)
[2017-04-13] MEDS ORDERED: Ketamine 10 mg/ml Inj (20 ml) ONE (12:36)
[2017-04-13] MEDS: Vancomycin 1gm in NS 250ml 1 GM/250 ML BAG IVPB SCH ×2 (12:37→21:06)
[2017-04-13] MEDS ORDERED: Midazolam 2 MG/2 ML VIAL ONE (12:39)
--- NOTE | 2017-04-13 13:17 | PN ---
DATE: SUBJECTIVE: I saw her resting comfortably in bed. She is alert this morning. Eyes are open, not talking, but she seems comfortable, in no acute distress. MEDICATIONS: She is on Azactam, Colace, Cozaar, insulin coverage, lactated Ringer's, Levemir, Lipitor, Lovenox, multivitamin, Pepcid, Plavix, Santyl, Toprol, Ultram, and vancomycin IV. PHYSICAL EXAMINATION VITAL SIGNS: She has a 98.5 temperature; 100 pulse; 145/94 blood pressure, quite high; 18 respiratory rate; 94% O2 sat on room air. HEENT: Head is atraumatic, normocephalic. Eyes are open. HEART: Regular rate. LUNGS: Decreased breath sounds, but clear. ABDOMEN: Soft. EXTREMITIES: Contracted. SKIN: There is a large decubitus ulcer. She is for debridement today. LABORATORY DATA: She has a 9 white count, but a 10.1 hemoglobin, 32 hematocrit, and 262 platelets. INR is 1.22. Sodium is 141, potassium is 3.9, BUN 70, creatinine is 0.4. GFR is greater than 60. Sugar is 206. Calcium is 10. Total bilirubin is 0.4. AST is 25, ALT is 44, alkaline phosphatase is 98, total protein 6.8. I will stop lactated Ringer's and put her back on heparin and normal saline. She also has urinary tract infection. She is being seen by Infectious Disease, Urology, and Surgery. She has a sacral ulcer, CVA urinary tract infection. She is bedridden. Some hematuria. She has SIRS as per Infectious Disease, hypertension, diabetes, chronic CHF. She had a dose of gentamicin. There is a chance Urology for the continued aggressive treatment and care. We will check her labs tomorrow. Lake Broderick DO MTDD
--- NOTE | 2017-04-13 13:20 | PCM.SURG1 ---
Surgeon's Initial Post Op Note - Surgeon's Notes Surgeon: Dr. Daniel Chemical Pumper: Dr. Lawton PGY3, Dr. Mosley PGY2 Type of Anesthesia: IV Sedation Pre-Operative Diagnosis: Stage 4 sacral wound Operative Findings: Stage 4 sacral wound with necrotic tissue Post-Operative Diagnosis: same Operation Performed: sharp debridement and Mesonix wound debridement with wound vac placement Specimen/Specimens Removed: none Estimated Blood Loss: EBL {In ML}: 5 Blood Products Given: N/A Drains Used: Wound Vac Post-Op Condition: Good Date of Surgery/Procedure: 04/13/17 Time of Surgery/Procedure: 13:20
[2017-04-13] MEDS ORDERED: HYDROmorphone 0.5 mg/0.5 ml ISec IVP PRN (13:21)
[2017-04-13] MEDS ORDERED: Sodium Chloride 0.9% 1,000 ML IV SCH (13:30)
[2017-04-13] MEDS: Metoprolol Succinate 50 mg XL Tab PO SCH (14:37)
[2017-04-13] MEDS: Collagenase 250 Units/gm Ointment(30 gm) TOP SCH (14:37)
[2017-04-13] MEDS: Sodium Chloride 0.45% 1,000 ML IV SCH (17:15)
[2017-04-13] MEDS ORDERED: Insulin Regular 1 UNITS/0.01 ML ML SC STA (18:29)
[2017-04-13] MEDS: Insulin Detemir 100 units/ml Vial (Levemir) SC SCH (22:29)
--- NOTE | 2017-04-13 22:54 | CON ---
DATE: CARDIOLOGY CONSULTATION REASON FOR CONSULTATION: Preoperative evaluation. HISTORY OF PRESENT ILLNESS: The patient 71-year-old female who has coronary artery disease status post coronary artery bypass surgery in the past, history of dementia, history of multiple strokes, history of congestive heart failure, who was admitted because of stage IV sacral decubitus and hematuria. Patient is being evaluated for debridement of the sacral decubitus. The patient has a gastrostomy feeding tube. No history can be obtained from the patient who is currently nonverbal. MEDICATIONS: Azactam 1 g intravenous q. 8 hours, Cozaar 25 mg once a day via PEG, Levemir 30 units subcutaneously at bedtime, Lipitor 80 mg once a day, 50 mg twice a day, Lovenox 40 mg subcutaneously once a day, Plavix 75 mg once a day, vancomycin 1 g intravenously q. 12 hours. REVIEW OF SYSTEMS: No reported seizures, no reported hypotension, and no reported respiratory distress. PAST MEDICAL HISTORY: Coronary artery disease status post artery bypass surgery, diabetes mellitus, CVA, hypertension, cardiomyopathy. PHYSICAL EXAMINATION: GENERAL: Patient is an elderly female who does not appear to be in any respiratory distress. VITAL SIGNS: Blood pressure 172/95, heart rate 107, temperature 99.7, respiration 18. HEENT: Pale conjunctivae. CHEST: Diminished breath sounds at the bases. HEART: S1 and S2, regular. ABDOMEN: Soft. EXTREMITIES: 1+ pitting edema. LABORATORY DATA: Hemoglobin and hematocrit 10.1 and 32.0, white count 9.0, platelet count . SMA-7: Sodium 141, potassium 3.9, chloride 102, CO2 29, glucose 131, BUN 17, creatinine 0.4. INR is 1.22. PTT 30.2. Influenza type A and B serology is negative. Urinalysis has large leukocytes, small blood and trace ketones. EKG revealed sinus tachycardia at rate of 109, nonspecific ST-T wave changes. Chest x-ray revealed borderline cardiomegaly with prominent bronchovascular markings. Echocardiographic study was consistent with ischemic cardiomyopathy with severe anteroseptal hypokinesis, ejection fraction estimated in the range of 30%, [id number] pulmonary hypertension. ASSESSMENT: 1. Ischemic cardiomyopathy. 2. Infected stage II sacral decubitus. 3. Urinary tract infection. 4. History of stroke. 5. Diabetes mellitus. 6. Systemic hypertension. RECOMMENDATIONS: Continue current IV Azactam and IV vancomycin. Continue Cozaar 25 mg once a day, Lopressor 50 mg twice a day, Lipitor 80 mg once a day. For the sake of debridement, hold both subcutaneous Lovenox and Plavix. However, the patient is a high surgical risk candidate under general anesthesia and postoperative telemetry monitoring is recommended. Wesley Hanley MD
[2017-04-14] MEDS: Aztreonam 1 Gm in NS 100mL 100 ML IVPB SCH (05:10)
[2017-04-14 07:11] LABS: HEMOGLOBIN 10.8 g/dL (12.0-16.0); MEAN CELL VOLUME 92.3 fl (80.0-105.0); MEAN CORPUSCULAR HEMOGLOBIN 28.5 pg (25.0-35.0); MEAN CORPUSCULAR HGB CONC 30.9 g/dl (31.0-37.0); MEAN PLATELET VOLUME 11.6 fl (7.0-11.0); RBC 3.79 10^6/uL (3.5-6.1); RED CELL DISTRIBUTION WIDTH 14.3 % (11.5-14.5); WHITE BLOOD COUNT 8.5 10^3/ul (4.5-11.0)
[2017-04-14 07:25] LABS: ALB/GLOB RATIO 0.9 (1.1-1.8); ALBUMIN 3.2 g/dL (3.0-4.8); ALT/SGPT 37 U/L (7-56); AST/SGOT 24 U/L (14-36); BLOOD UREA NITROGEN 13 mg/dL (7-21); GFR AFRICAN-AMERICAN > 60; GFR NON-AFRICAN AMERICAN > 60
--- NOTE | 2017-04-14 08:04 | CON ---
DATE: 04/12/2017 UROLOGY CONSULTATION Urology consultation is requested by Dr. Lake Broderick. Urology consultation filled by Dr. Janelle Hendrix. REASON FOR CONSULTATION: Hematuria, urinary tract infection. HISTORY OF PRESENT ILLNESS: The patient is a 71-year-old female admitted on 04/11/2017. The patient was admitted for urinary tract infection and hematuria. The patient has an indwelling Rogers catheter. The Rogers catheter has been in place for the past several weeks. The catheter has been in place to prevent wound contamination with patient's urine. The patient is incontinent of urine. Ms. Kelly has a history of previous stroke. She has apparent aphasia. She has possible dementia as well. The patient has history of coronary artery disease. There is history of diabetes mellitus and hypertension. There has been no recent fever or rigors. The patient had hematuria. No nausea or vomiting. The patient does not eat due to swallowing difficulty. The patient has a gastrostomy tube (PEG) in place. Medications reviewed. Laboratory data reviewed. PHYSICAL EXAMINATION: GENERAL: The patient is well-developed, well-nourished female. The patient is awake. She does not communicate. ABDOMEN: Soft, nontender, nondistended. No mass or organomegaly. BACK: No CVA tenderness. The urine is clear yellow via the Rogers catheter. IMPRESSION: A 71-year-old female with hematuria. Differential diagnoses of hematuria includes urinary tract infection, urolithiasis, and/or neoplasia. The clinical impression is urinary tract infection. The urinary tract infection may be related to the presence of indwelling Rogers catheter. RECOMMENDATION AND PLAN: Urine culture, antibiotic therapy. Recommend catheter removal if possible. Possible need for further Urologic evaluation. Possible need for cystoscopy and urodynamic evaluation. In addition, the patient requires evaluation and treatment for her sacral decubitus ulcer. Thank you for recommending the patient for Urology consultation. Janelle Hendrix MD cc: Lake Broderick MD
[2017-04-14] MEDS ORDERED: Insulin Detemir 100 units/ml Vial (Levemir) SC SCH (08:20)
[2017-04-14] MEDS: Insulin Lispro (humaLOG) LOW Coverage SC SCH ×4 (08:35→21:20)
[2017-04-14] MEDS: Enoxaparin 40 mg Syringe SC SCH (09:24)
[2017-04-14] MEDS: Vancomycin 1gm in NS 250ml 1 GM/250 ML BAG IVPB SCH ×2 (09:24→21:13)
[2017-04-14] MEDS: AMIKACIN IVPB SCH ×2 (11:03→22:47)
[2017-04-14] MEDS: DEXTROSE 5% IVPB SCH ×2 (11:03→22:47)
[2017-04-14] MEDS: WATER IVPB SCH ×2 (11:03→22:47)
--- NOTE | 2017-04-14 11:35 | CP.PCM.PN ---
Subjective - Date & Time of Evaluation Date of Evaluation: 04/14/17 Time of Evaluation: 08:00 - Subjective Subjective: Patent seen and examined this morning. No acute events over night. Wound vac in place c/d/i. Objective - Vital Signs/Intake and Output Vital Signs (last 24 hours): Temp Pulse Resp BP Pulse Ox 98.3 F 103 H 20 135/84 99 04/14/17 06:00 04/14/17 06:00 04/14/17 06:00 04/14/17 06:00 04/14/17 06:00 Intake and Output: 04/14/17 04/14/17 06:59 18:59 Intake Total 1660 Output Total 1250 Balance 410 - Medications Medications: Current Medications Acetaminophen (Tylenol 325mg Tab) 650 mg PO Q6H PRN PRN Reason: Fever >100.4 F Last Admin: 04/13/17 22:42 Dose: 650 mg Atorvastatin Calcium (Lipitor) 80 mg PEG HS [facility] Last Admin: 04/13/17 22:11 Dose: 80 mg Clopidogrel Bisulfate (Plavix) 75 mg PEG DAILY [facility] Last Admin: 04/14/17 09:24 Dose: 75 mg Docusate Sodium (Colace Liquid) 100 mg PO BID [facility] Last Admin: 04/14/17 09:24 Dose: 100 mg Enoxaparin Sodium (Lovenox) 40 mg SC DAILY [facility] Last Admin: 04/14/17 09:24 Dose: 40 mg Famotidine (Pepcid) 20 mg PEG DAILY [facility] Last Admin: 04/14/17 09:24 Dose: 20 mg Vancomycin HCl (Vancomycin 1gm) 1 gm in 250 mls @ 167 mls/hr IVPB Q12H [facility] PRN Reason: Protocol Last Admin: 04/14/17 09:24 Dose: 167 mls/hr Sodium Chloride (Sodium Chloride 0.45%) 1,000 mls @ 60 mls/hr IV .[id number] [facility] Last Admin: 04/13/17 17:15 Dose: 60 mls/hr Amikacin Sulfate 250 mg/ (Dextrose) 101 mls @ 204 mls/hr IVPB Q12 [facility] PRN Reason: Protocol Stop: 04/24/17 10:01 Last Admin: 04/14/17 11:03 Dose: 204 mls/hr Insulin Detemir (Levemir) 35 unit SC [facility] Insulin Human Lispro (Humalog Low) 0 units SC ACHS [facility] PRN Reason: Protocol Last Admin: 04/14/17 08:35 Dose: 1 units Losartan Potassium (Cozaar) 25 mg PEG DAILY [facility] Last Admin: 04/14/17 09:24 Dose: 25 mg Metoprolol Tartrate (Lopressor) 50 mg PO BID [facility] Last Admin: 04/14/17 09:24 Dose: 50 mg Multivitamins/Vitamin C (Multi-Delyn Liquid) 15 ml PO 0800 [facility] Ondansetron HCl (Zofran Inj) 4 mg IVP ONCE PRN PRN Reason: Nausea/Vomiting Tramadol HCl (Ultram) 50 mg GT Q8 PRN PRN Reason: Pain, moderate (4-7) - Labs Labs: 04/14/17 06:00 04/14/17 06:00 PT 14.1 SECONDS (9.4-12.5) H 04/13/17 08:45 INR 1.22 (0.93-1.08) H 04/13/17 08:45 APTT 30.2 Seconds (25.1-36.5) 04/13/17 08:45
--- NOTE | 2017-04-14 13:46 | OP ---
PROCEDURE DATE: PREOPERATIVE DIAGNOSIS: Sacral decubitus. POSTOPERATIVE DIAGNOSIS: Sacral decubitus. OPERATION PERFORMED: Debridement. DESCRIPTION OF PROCEDURE: In the operating room, patient was identified by name, name of the procedure, laterality and my sulema. The patient was placed on her side. As the patient was a poor operative risk, light anesthesia was given. The area was cleaned, prepped and draped. Using the Misonix, the edges were freshened circumferentially. There was a fair amount of necrotic fat on the superior flap. This was taken down carefully. Prior to this, the area was debrided sharply with a knife and a scissor removing all gross tissues. This was sent to the lab. The area was then prepped with a wound VAC after hemostasis was achieved. The patient was taken to recovery room in good condition after sponge and needle counts were declared correct. Carlton Daniel MD
[2017-04-14] MEDS: Sodium Chloride 0.45% 1,000 ML IV SCH (13:57)
--- NOTE | 2017-04-14 14:06 | PN ---
DATE: SUBJECTIVE: I saw her this morning with her daughter. She is on IV medications, IV antibiotics. She is alert and status post sharp debridement of the large decubitus ulcer. She is bedridden. PHYSICAL EXAMINATION VITAL SIGNS: She has a 98.3 temperature, 96 pulse, 135/84 blood pressure,, 20 respiratory rate, 99% O2 saturation on nasal cannula. HEENT: Head is traumatic, normocephalic. Eyes are open. HEART: Regular rate. LUNGS: Decreased breath sounds, but clear. ABDOMEN: Soft , has a feeding tube. EXTREMITIES: Contracted, no edema. MEDICATIONS: She is currently on Azactam, Colace, Cozaar, insulin, Levemir, Lipitor, Lopressor, Lovenox, multivitamin, Pepcid, Plavix, IV fluids, Tylenol, Ultram, vancomycin and Zosyn. LABORATORY DATA: She has an 8.5 white count, 10.8 hemoglobin, 35 hematocrit with 264,000 platelets. She has 140 sodium, potassium 3.8, BUN is 13, creatinine 0.4, GFR is greater than 60, sugar is 190, calcium is 10, total bilirubin is 0.4, AST is 24, ALT is 37, alkaline phosphatase 87, total protein 6.7. I will increase her Levemir insulin. She also has UTI and she is on antibiotics for all these things . We will see if we can transfer her to TCU for further skin care, wound care and IV antibiotics, the daughter refuses her to go to [facility]. So, we will home eventually, we can keep her here. She is off the wound care. She has a wound VAC on. I will talk to Electromatic Typist about where we can place her at home and how long she is to be on the antibiotics and the wound VAC. Continue aggressive treatment and care. Lake Broderick DO MTDD
--- NOTE | 2017-04-14 17:44 | CARD ---
APPROVED REPORT EKG Measurement Heart [id number] <Conclusion> Normal sinus rhythm Nonspecific T wave abnormality Abnormal ECG
--- NOTE | 2017-04-14 18:53 | PN ---
DATE: SUBJECTIVE: Patient is nonverbal. She does not appear to be in any distress. No reported ventricular tachycardia to me. PHYSICAL EXAMINATION VITAL SIGNS: Blood pressure 135/74, heart rate 90, temperature 98.3, respiration 18. HEENT: Normocephalic. CHEST: Clear. HEART: S1 and S2 regular. EXTREMITIES: Trace edema. LABORATORY DATA: SMA-7 is within normal limits, except for glucose of 190 and creatinine of 0.4. Today's hemoglobin and hematocrit of 10.8 and 35.0. White count and platelets counts are within normal limits. ASSESSMENT: 1. Ischemic cardiomyopathy. 2. Status post sacral decubitus debridement. 3. Uncontrolled diabetes mellitus. 4. Coronary artery disease, status post coronary artery bypass surgery. RECOMMENDATIONS: Continue current amikacin 250 mg intravenously q. 12 hours, Cozaar 25 mg once a day, Lipitor 80 mg once a day, Lopressor 50 mg twice a day, Lovenox 30 mg subcutaneously once a day, Plavix 75 mg once a day, vancomycin 1 g intravenously q. 12 hours. Obtain a repeat postoperative EKG. Wesley Hanley MD
--- NOTE | 2017-04-14 19:30 | CP.PCM.PN ---
Subjective - Date & Time of Evaluation Date of Evaluation: 04/13/17 Time of Evaluation: 10:55 - Subjective Subjective: Had debridement of sacral decubitus ulcer done yesterday, no fevers. Objective - Vital Signs/Intake and Output Vital Signs (last 24 hours): Temp Pulse Resp BP Pulse Ox 98.5 F 100 H 18 145/94 H 94 L 04/13/17 07:30 04/13/17 07:30 04/13/17 07:30 04/13/17 07:30 04/13/17 07:30 - Medications Medications: Current Medications Atorvastatin Calcium (Lipitor) 80 mg PEG HS [facility] Last Admin: 04/12/17 22:03 Dose: 80 mg Clopidogrel Bisulfate (Plavix) 75 mg PEG DAILY [facility] Last Admin: 04/12/17 10:06 Dose: 75 mg Collagenase (Santyl) 0 gm TOP DAILY [facility] Last Admin: 04/12/17 17:41 Dose: 1 gm Docusate Sodium (Colace Liquid) 100 mg PO BID [facility] Last Admin: 04/12/17 18:48 Dose: Not Given Enoxaparin Sodium (Lovenox) 40 mg SC DAILY [facility] Last Admin: 04/12/17 10:07 Dose: 40 mg Famotidine (Pepcid) 20 mg PEG DAILY [facility] Last Admin: 04/12/17 10:07 Dose: 20 mg Lactated Ringer's (Lactated Ringer's) 1,000 mls @ 100 mls/hr IV .Q10H [facility] Last Admin: 04/13/17 00:06 Dose: 100 mls/hr Aztreonam (Azactam 1 Gm) 100 mls @ 100 mls/hr IVPB Q8 [facility] PRN Reason: Protocol Stop: 04/20/17 09:01 Insulin Detemir (Levemir) 30 unit SC HS [facility] Last Admin: 04/12/17 22:02 Dose: 30 unit Insulin Human Lispro (Humalog Low) 0 units SC ACHS [facility] PRN Reason: Protocol Last Admin: 04/12/17 17:40 Dose: Not Given Losartan Potassium (Cozaar) 25 mg PEG DAILY [facility] Last Admin: 04/12/17 10:06 Dose: 25 mg Metoprolol Succinate (Toprol Xl) 50 mg PO BID [facility] Last Admin: 04/12/17 17:41 Dose: Not Given Non-Formulary Medication (Multivit-Minerals/Ferrous Fum [Multivitamin Liquid]) 5 ml PEG DAILY [facility] Last Admin: 04/12/17 10:07 Dose: Not Given Tramadol HCl (Ultram) 50 mg GT Q8 PRN PRN Reason: Pain, moderate (4-7) - Labs Labs: 04/13/17 06:30 04/13/17 06:30 PT 12.6 SECONDS (9.4-12.5) H 04/11/17 18:10 INR 1.10 (0.93-1.08) H 04/11/17 18:10 APTT 33.3 Seconds (25.1-36.5) 04/11/17 18:10 - Constitutional Appears: Chronically Ill - Head Exam Head Exam: NORMAL INSPECTION - Neck Exam Neck Exam: absent: Meningismus - Respiratory Exam Respiratory Exam: Decreased Breath Sounds - Cardiovascular Exam Cardiovascular Exam: +S1, +S2 - GI/Abdominal Exam GI & Abdominal Exam: Soft. absent: Tenderness Assessment and Plan - Assessment and Plan (Free Text) Plan: Assessment Systemic Inflammatory Response Syndrome, consider sepsis due to UTI, complicated with indwelling Shen catheter, growing multidrug resistant Enterobacter and E. faecalis DM HTN chronic CHF CAD S/P CABG S/P PEG tube placement S/P shen catheter placement sacral decubitus ulcer stage 4 dementia history of CVA Plan continue Amikacin and Vancomycin for another 7-10 days - will need to monitor renal function while on these antibiotics
[2017-04-15 01:38] VITALS: RESP 20
[2017-04-15] MEDS: Sodium Chloride 0.45% 1,000 ML IV SCH (06:34)
[2017-04-15 06:45] VITALS: O2SAT 98
[2017-04-15] MEDS ORDERED: Multi Vitamins 15 mL UD Oral Solution PO SCH (08:00)
--- NOTE | 2017-04-15 08:07 | CP.PCM.PN ---
Subjective - Date & Time of Evaluation Date of Evaluation: 04/15/17 Time of Evaluation: 08:04 - Subjective Subjective: Surgery Pt s&e. NAEON. Dressing intact. No leaks present. Pt is non verbal Objective - Vital Signs/Intake and Output Vital Signs (last 24 hours): Temp Pulse Resp BP Pulse Ox 99.2 F 102 H 20 117/74 98 04/15/17 06:00 04/15/17 06:00 04/15/17 06:00 04/15/17 06:00 04/15/17 06:00 Intake and Output: 04/15/17 04/15/17 06:59 18:59 Intake Total 3725 Output Total 2500 Balance 1225 - Medications Medications: Current Medications Acetaminophen (Tylenol 325mg Tab) 650 mg PO Q6H PRN PRN Reason: Fever >100.4 F Last Admin: 04/13/17 22:42 Dose: 650 mg Atorvastatin Calcium (Lipitor) 80 mg PEG [facility] Last Admin: 04/14/17 21:50 Dose: 80 mg Clopidogrel Bisulfate (Plavix) 75 mg PEG DAILY [facility] Last Admin: 04/14/17 09:24 Dose: 75 mg Docusate Sodium (Colace Liquid) 100 mg PO BID [facility] Last Admin: 04/14/17 17:42 Dose: 100 mg Enoxaparin Sodium (Lovenox) 40 mg SC DAILY [facility] Last Admin: 04/14/17 09:24 Dose: 40 mg Famotidine (Pepcid) 20 mg PEG DAILY [facility] Last Admin: 04/14/17 09:24 Dose: 20 mg Vancomycin HCl (Vancomycin 1gm) 1 gm in 250 mls @ 167 mls/hr IVPB Q12H [facility] PRN Reason: Protocol Last Admin: 04/14/17 21:13 Dose: 167 mls/hr Sodium Chloride (Sodium Chloride 0.45%) 1,000 mls @ 60 mls/hr IV .[id number] [facility] Last Admin: 04/15/17 06:34 Dose: 60 mls/hr Amikacin Sulfate 250 mg/ (Dextrose) 101 mls @ 204 mls/hr IVPB Q12 [facility] PRN Reason: Protocol Stop: 04/24/17 10:01 Last Admin: 04/14/17 22:47 Dose: 204 mls/hr Insulin Detemir (Levemir) 35 unit SC [facility] Last Admin: 04/14/17 21:51 Dose: 35 unit Insulin Human Lispro (Humalog Low) 0 units SC ACHS [facility] PRN Reason: Protocol Last Admin: 04/14/17 21:20 Dose: Not Given Losartan Potassium (Cozaar) 25 mg PEG DAILY [facility] Last Admin: 04/14/17 09:24 Dose: 25 mg Metoprolol Tartrate (Lopressor) 50 mg PO BID [facility] Last Admin: 04/14/17 17:42 Dose: 50 mg Multivitamins/Vitamin C (Multi-Delyn Liquid) 15 ml PO 0800 [facility] Ondansetron HCl (Zofran Inj) 4 mg IVP ONCE PRN PRN Reason: Nausea/Vomiting Tramadol HCl (Ultram) 50 mg GT Q8 PRN PRN Reason: Pain, moderate (4-7) Last Admin: 04/14/17 21:51 Dose: 50 mg - Labs Labs: 04/14/17 06:00 04/14/17 06:00 PT 14.1 SECONDS (9.4-12.5) H 04/13/17 08:45 INR 1.22 (0.93-1.08) H 04/13/17 08:45 APTT 30.2 Seconds (25.1-36.5) 04/13/17 08:45 - Constitutional Appears: No Acute Distress, Chronically Ill - Head Exam Head Exam: ATRAUMATIC, NORMAL INSPECTION, NORMOCEPHALIC - Eye Exam Eye Exam: EOMI, Normal appearance, PERRL Pupil Exam: NORMAL ACCOMODATION, PERRL - ENT Exam ENT Exam: Mucous Membranes Moist, Normal Exam - Neck Exam Neck Exam: Full ROM, Normal Inspection. absent: Lymphadenopathy - Respiratory Exam Respiratory Exam: Clear to Ausculation Bilateral, NORMAL BREATHING PATTERN - Cardiovascular Exam Cardiovascular Exam: REGULAR RHYTHM, +S1, +S2. absent: Murmur - GI/Abdominal Exam GI & Abdominal Exam: Soft, Normal Bowel Sounds. absent: Tenderness - Rectal Exam Rectal Exam: NORMAL INSPECTION - Extremities Exam Extremities Exam: Normal Capillary Refill, Normal Inspection. absent: Full ROM , Joint Swelling, Pedal Edema - Back Exam Additional comments: wound vac in place. No leak present - Neurological Exam Neurological Exam: Awake. absent: Alert, Oriented x3 - Psychiatric Exam Psychiatric exam: Normal Affect, Normal Mood - Skin Skin Exam: Erythema, Normal Color, Warm. absent: Intact Assessment and Plan - Assessment and Plan (Free Text) Assessment: Pod 2 s/p wound debridement -Wound vac change q3 -Clear for DC for surgical standpoint -Home wound vac DW Dr. Daniel
[2017-04-15] MEDS: Vancomycin 1gm in NS 250ml 1 GM/250 ML BAG IVPB SCH (08:17)
[2017-04-15] MEDS: Insulin Lispro (humaLOG) LOW Coverage SC SCH ×2 (08:17→12:04)
[2017-04-15 08:18] LABS: ALB/GLOB RATIO 0.9 (1.1-1.8); ALBUMIN 2.9 g/dL (3.0-4.8); ALT/SGPT 37 U/L (7-56); AST/SGOT 21 U/L (14-36); BLOOD UREA NITROGEN 11 mg/dL (7-21); CALCIUM 9.3 mg/dL (8.4-10.5); GFR AFRICAN-AMERICAN > 60; GFR NON-AFRICAN AMERICAN > 60
[2017-04-15 08:21] LABS: HEMOGLOBIN 9.8 g/dL (12.0-16.0); MEAN CELL VOLUME 91.4 fl (80.0-105.0); MEAN CORPUSCULAR HEMOGLOBIN 29.2 pg (25.0-35.0); MEAN CORPUSCULAR HGB CONC 31.9 g/dl (31.0-37.0); MEAN PLATELET VOLUME 11.4 fl (7.0-11.0); RBC 3.36 10^6/uL (3.5-6.1); RED CELL DISTRIBUTION WIDTH 13.9 % (11.5-14.5)
[2017-04-15] MEDS: Enoxaparin 40 mg Syringe SC SCH (10:49)
[2017-04-15] MEDS: WATER IVPB SCH (10:50)
[2017-04-15] MEDS: AMIKACIN IVPB SCH (10:50)
[2017-04-15] MEDS: DEXTROSE 5% IVPB SCH (10:50)
[2017-04-15 11:22] VITALS: BP 147/90; PULSE 96; TEMP 98.2
[2017-04-15] MEDS ORDERED: Insulin Detemir 100 units/ml Vial (Levemir) SC SCH (12:53)
--- NOTE | 2017-04-16 03:45 | DS ---
HISTORY OF PRESENT ILLNESS: I saw her resting comfortably in bed. Her eyes are open; that is her baseline. She is bedridden, nonverbal and contracted. PHYSICAL EXAMINATION: GENERAL: No acute apparent distress. VITAL SIGNS: She has 98.2 temperature, 96 pulse, 147/90 blood pressure, 20 respiratory rate. HEENT: Head is atraumatic, normocephalic. Eyes are open. HEART: Regular rate. LUNGS: Decreased breath sounds. ABDOMEN: Soft. EXTREMITIES: She is contracted with her extremities and she has a large sacral wound. She is currently on Amikacin, Colace, Cozaar, insulin, Levemir, Lipitor, Lopressor, Lovenox, liquid vitamin, Pepcid, Plavix, IV fluids, Tylenol, Ultram, vancomycin IV and Zofran. She has a 9 white count, 9.8 hemoglobin, 30.7 hematocrit with 253 platelets. 141 sodium, potassium is 4, BUN is 11, creatinine 0.4, GFR is greater than 60, last blood sugar was 174, calcium is 9.3. Total bili is 0.2, AST is 21, ALT is 37, alk phos 79 and total protein 6.2. She has sacral wound, old cerebrovascular accident, urinary tract infection, bedridden and systemic inflammatory response syndrome. PLAN: I am going to increase her Levemir to 40 units at nighttime. I am going to check her labs tomorrow and will discharge her to the TCU for further treatment and wound care. Lake Broderick DO
== END 2017-04-15 15:08 | DRG 592 ==
LOC: ED 17:33 → MERGE 23:16 → ERH 23:16 → 5RNO 04-12 01:42 → 3RSO 04-13 18:50
PROVIDERS: ADMIT Family Medicine; ATTEND Family Medicine
PROC: 0HB6XZZ Excision of Back Skin, External Approach (ICD-10-PCS; principal; 2017-04-13 09:15)
DX: L89.154 Pressure ulcer of sacral region, stage 4 (principal); L89.152 Pressure ulcer of sacral region, stage 2; I11.0 Hypertensive heart disease with heart failure; E11.65 Type 2 diabetes mellitus with hyperglycemia; N12 Tubulo-interstitial nephritis, not specified as acute or chronic; F03.90 Unspecified dementia, unspecified severity, without behavioral disturbance, psychotic disturbance, mood disturbance, and anxiety; I50.9 Heart failure, unspecified; K57.92 Diverticulitis of intestine, part unspecified, without perforation or abscess without bleeding; R47.01 Aphasia; N28.1 Cyst of kidney, acquired; I25.5 Ischemic cardiomyopathy; I25.10 Atherosclerotic heart disease of native coronary artery without angina pectoris; R13.10 Dysphagia, unspecified; R32 Unspecified urinary incontinence; Z74.01 Bed confinement status; Z86.73 Personal history of transient ischemic attack (TIA), and cerebral infarction without residual deficits; Z93.1 Gastrostomy status; Z95.1 Presence of aortocoronary bypass graft; B95.2 Enterococcus as the cause of diseases classified elsewhere

== ENCOUNTER 2017-04-15 14:56 | Inpatient (IN) | payer OTHER ==
[2017-04-15 16:11] VITALS: BMI 27.6
[2017-04-15] MEDS: Insulin Lispro (humaLOG) LOW Coverage SC SCH ×2 (16:50→21:24)
[2017-04-15] MEDS: Sodium Chloride 0.45% 1,000 ML IV SCH (16:52)
[2017-04-15] MEDS: AMIKACIN IVPB SCH (18:09)
[2017-04-15] MEDS: WATER IVPB SCH (18:09)
[2017-04-15] MEDS: DEXTROSE 5% IVPB SCH (18:09)
[2017-04-15] MEDS: Vancomycin 1gm in NS 250ml 1 GM/250 ML BAG IVPB SCH (18:12)
[2017-04-15] MEDS ORDERED: Insulin Detemir 100 units/ml Vial (Levemir) SC SCH (22:00)
[2017-04-16] MEDS: Sodium Chloride 0.45% 1,000 ML IV SCH ×2 (04:25→10:17)
[2017-04-16] MEDS: DEXTROSE 5% IVPB SCH ×2 (05:09→18:47)
[2017-04-16] MEDS: WATER IVPB SCH ×2 (05:09→18:47)
[2017-04-16] MEDS: AMIKACIN IVPB SCH ×2 (05:09→18:47)
[2017-04-16] MEDS: Insulin Lispro (humaLOG) LOW Coverage SC SCH ×4 (06:44→22:34)
[2017-04-16] MEDS ORDERED: Insulin Detemir 100 units/ml Vial (Levemir) SC SCH (09:00)
[2017-04-16] MEDS ORDERED: Collagenase 250 Units/gm Ointment(30 gm) TOP SCH (10:00)
[2017-04-16] MEDS: Enoxaparin 40 mg Syringe SC SCH (10:16)
[2017-04-16] MEDS: Vancomycin 1gm in NS 250ml 1 GM/250 ML BAG IVPB SCH ×2 (10:17→18:23)
[2017-04-16] MEDS: Multi Vitamins 15 mL UD Oral Solution PEG SCH (10:19)
[2017-04-16 11:12] LABS: ALB/GLOB RATIO 0.9 (1.1-1.8); ALBUMIN 2.9 g/dL (3.0-4.8); ALT/SGPT 36 U/L (7-56); AST/SGOT 19 U/L (14-36); BLOOD UREA NITROGEN 12 mg/dL (7-21); CALCIUM 9.4 mg/dL (8.4-10.5); GFR AFRICAN-AMERICAN > 60; GFR NON-AFRICAN AMERICAN > 60
[2017-04-16] MEDS: Collagenase 250 Units/gm Ointment(30 gm) TOP SCH (12:21)
--- NOTE | 2017-04-16 12:35 | CP.PCM.PN ---
Subjective - Date & Time of Evaluation Date of Evaluation: 04/16/17 Time of Evaluation: 07:20 - Subjective Subjective: Patietn seen and examined at bedside this AM. No adverse events overnight. Patient is non-interactive but seems comfortable. Wound vac functioning well. Objective - Vital Signs/Intake and Output Vital Signs (last 24 hours): Temp Pulse Resp BP Pulse Ox 99.4 F 80 20 150/80 100 04/15/17 16:29 04/16/17 10:20 04/15/17 16:29 04/16/17 10:20 04/15/17 16:29 Intake and Output: 04/16/17 04/16/17 06:59 18:59 Intake Total 0 Output Total 1650 Balance -1650 - Medications Medications: Current Medications Acetaminophen (Tylenol 325mg Tab) 650 mg PEG Q6H PRN; Protocol PRN Reason: Fever >100.4 F Atorvastatin Calcium (Lipitor) 80 mg PEG DIN [facility] PRN Reason: Protocol Last Admin: 04/15/17 18:11 Dose: 80 mg Clopidogrel Bisulfate (Plavix) 75 mg PEG DAILY [facility] PRN Reason: Protocol Last Admin: 04/16/17 10:19 Dose: 75 mg Collagenase (Santyl) 0 gm TOP DAILY [facility] Last Admin: 04/16/17 12:21 Dose: 1 applic Docusate Sodium (Colace Liquid) 100 mg PEG BID [facility] PRN Reason: Protocol Last Admin: 04/16/17 10:18 Dose: 100 mg Enoxaparin Sodium (Lovenox) 40 mg SC DAILY [facility] PRN Reason: Protocol Last Admin: 04/16/17 10:16 Dose: 40 mg Famotidine (Pepcid) 20 mg PEG 2200 [facility] PRN Reason: Protocol Last Admin: 04/15/17 21:22 Dose: 20 mg Amikacin Sulfate 250 mg/ (Dextrose) 102 mls @ 204 mls/hr IVPB 0600,1800 [facility] PRN Reason: Protocol Last Admin: 04/16/17 05:09 Dose: 204 mls/hr Vancomycin HCl (Vancomycin 1gm) 1 gm in 250 mls @ 167 mls/hr IVPB 0800,1800 [facility] PRN Reason: Protocol Last Admin: 04/16/17 10:17 Dose: 167 mls/hr Sodium Chloride (Sodium Chloride 0.45%) 1,000 mls @ 60 mls/hr IV .[id number] [facility] PRN Reason: Protocol Last Admin: 04/16/17 10:17 Dose: 60 mls/hr Insulin Detemir (Levemir) 38 unit SC HS [facility] PRN Reason: Protocol Insulin Human Lispro (Humalog Low) 0 units SC ACHS [facility] PRN Reason: Protocol Last Admin: 04/16/17 12:19 Dose: 2 units Losartan Potassium (Cozaar) 25 mg PEG DAILY [facility] PRN Reason: Protocol Last Admin: 04/16/17 10:20 Dose: 25 mg Metoprolol Tartrate (Lopressor) 50 mg PEG 0800,1800 [facility] PRN Reason: Protocol Last Admin: 04/16/17 10:18 Dose: 50 mg Multivitamins/Vitamin C (Multi-Delyn Liquid) 15 ml PEG 0800 [facility] PRN Reason: Protocol Last Admin: 04/16/17 10:19 Dose: 15 ml Ondansetron HCl (Zofran Inj) 4 mg IVP Q6H PRN; Protocol PRN Reason: Nausea/Vomiting Tramadol HCl (Ultram) 50 mg GT Q8H PRN; Protocol PRN Reason: Pain, moderate (4-7) - Labs Labs: 04/16/17 10:50 - Constitutional Appears: Well, Non-toxic, No Acute Distress, Chronically Ill - Head Exam Head Exam: ATRAUMATIC, NORMOCEPHALIC - Eye Exam Eye Exam: Normal appearance - ENT Exam ENT Exam: Mucous Membranes Moist, Normal Oropharynx - Respiratory Exam Respiratory Exam: NORMAL BREATHING PATTERN. absent: Accessory Muscle Use, Respiratory Distress - Cardiovascular Exam Cardiovascular Exam: RRR - GI/Abdominal Exam GI & Abdominal Exam: absent: Distended - Extremities Exam Extremities Exam: absent: Calf Tenderness, Pedal Edema, Tenderness - Back Exam Back Exam: absent: CVA tenderness (L), CVA tenderness (R) - Neurological Exam Neurological Exam: Altered, Awake - Psychiatric Exam Psychiatric exam: Flat Affect, Normal Mood - Skin Additional comments: Stage 4 Sacral decubitus ulcer approximately 5 cm in diameter with yellow eschar at base but healthy tissue surrounding it. No surrounding erythema, minimal bleeding Assessment and Plan - Assessment and Plan (Free Text) Assessment: 71F with stage 4 sacral decubitus ulcer POD#3 s/p debridement and wound vac placement Plan: Apply santyl to the base of the wound and re-apply wound vac Continue wound vac on continuous 125mmHg suction for 3 days and then change it Patient is clear for discharge from a surgical standpoint with continued wound vac therapy and santyl with exchanges Q3 days with home nursing PRN pain medication Continue antibiotics per primary Will continue to follow Examined with Dr. Fredy Kaur, PGY2
--- NOTE | 2017-04-16 17:01 | CP.PCM.CON ---
History of Present Illness - History of Present Illness History of Present Illness: 71 year old female with PMH of DM, HTN, chronic CHF, CAD S/P CABG, S/P PEG tube placement S/P shen catheter placement, sacral decubitus ulcer stage 4, dementia , history of CVA was initially brought in to [facility] because of hematuria and fever. The patient was noted to have UTI with multidrug resistant Enterobacter and E. faecalis and has been doing well with antibiotics. She is now transferred to [facility] for continued medical therapy and physical rehab. Infectious Diseases consult is requested to further evaluate and manage. Currently the patient is afebrile, comfortable in bed, no diarrhea, no vomiting. Full ROS is unobtainable because of the patient's dementia. Review of Systems - Review of Systems Systems not reviewed;Unavailable: Dementia Past Patient History - Infectious Disease Hx of Infectious Diseases: None - Past Social History Smoking Status: Unknown If Ever Smoked - CARDIAC Hx Congestive Heart Failure: Yes Hx Hypertension: Yes - PULMONARY Hx Respiratory Disorders: No - NEUROLOGICAL HX Cerebrovascular Accident: Yes - HEENT Hx HEENT Problems: Yes Other/Comment: glasses - ENDOCRINE/METABOLIC Hx Diabetes Mellitus Type 2: Yes - HEMATOLOGICAL/ONCOLOGICAL Hx Blood Disorders: No - INTEGUMENTARY Hx Dermatological Problems: Yes Other/Comment: unstageable sacral wound, ongoing as per pts daughter. - MUSCULOSKELETAL/RHEUMATOLOGICAL Hx Falls: Yes - GASTROINTESTINAL Hx Gastrointestinal Disorders: Yes Hx Diverticulitis: Yes Other/Comment: PEG tube - GENITOURINARY/GYNECOLOGICAL Hx Genitourinary Disorders: Yes Hx Incontinence: Yes Other/Comment: shen present - PSYCHIATRIC Hx Depression: Yes - SURGICAL HISTORY Hx Surgeries: Yes - ANESTHESIA Hx Anesthesia Reactions: No Hx Malignant Hyperthermia: No Meds Allergies/Adverse Reactions: Allergies Allergy/AdvReac Type Severity Reaction Status Date / Time Penicillins Allergy REDNESS Verified 04/16/17 15:46 - Medications Medications: Current Medications Acetaminophen (Tylenol 325mg Tab) 650 mg PEG Q6H PRN; Protocol PRN Reason: Fever >100.4 F Atorvastatin Calcium (Lipitor) 80 mg PEG DIN [facility] PRN Reason: Protocol Clopidogrel Bisulfate (Plavix) 75 mg PEG DAILY [facility] PRN Reason: Protocol Docusate Sodium (Colace Liquid) 100 mg PEG BID [facility] PRN Reason: Protocol Enoxaparin Sodium (Lovenox) 40 mg SC DAILY [facility] PRN Reason: Protocol Famotidine (Pepcid) 20 mg PEG 2200 [facility] PRN Reason: Protocol Amikacin Sulfate 250 mg/ (Dextrose) 102 mls @ 204 mls/hr IVPB 0600,1800 [facility] PRN Reason: Protocol Vancomycin HCl (Vancomycin 1gm) 1 gm in 250 mls @ 167 mls/hr IVPB 0800,1800 [facility] PRN Reason: Protocol Sodium Chloride (Sodium Chloride 0.45%) 1,000 mls @ 60 mls/hr IV .[id number] [facility] PRN Reason: Protocol Last Admin: 04/15/17 16:52 Dose: 60 mls/hr Insulin Detemir (Levemir) 35 unit SC HS [facility] PRN Reason: Protocol Insulin Human Lispro (Humalog Low) 0 units SC ACHS [facility] PRN Reason: Protocol Losartan Potassium (Cozaar) 25 mg PEG DAILY [facility] PRN Reason: Protocol Metoprolol Tartrate (Lopressor) 50 mg PEG 0800,1800 [facility] PRN Reason: Protocol Multivitamins/Vitamin C (Multi-Delyn Liquid) 15 ml PEG 0800 [facility] PRN Reason: Protocol Ondansetron HCl (Zofran Inj) 4 mg IVP Q6H PRN; Protocol PRN Reason: Nausea/Vomiting Tramadol HCl (Ultram) 50 mg GT Q8H PRN; Protocol PRN Reason: Pain, moderate (4-7) Physical Exam - Constitutional Appears: Chronically Ill - Head Exam Head Exam: NORMAL INSPECTION - Neck Exam Neck exam: Negative for: Meningismus - Respiratory Exam Respiratory Exam: Decreased Breath Sounds - Cardiovascular Exam Cardiovascular Exam: +S1, +S2 - GI/Abdominal Exam GI & Abdominal Exam: Soft. absent: Tenderness Results - Vital Signs Recent Vital Signs: Last Vital Signs Temp 99.4 F 04/15/17 16:29 Pulse 88 04/15/17 16:29 Resp 20 04/15/17 16:29 BP 122/84 04/15/17 16:29 Pulse Ox 100 04/15/17 16:29 - Labs Result Diagrams: 04/16/17 10:50 Assessment & Plan - Assessment and Plan (Free Text) Plan: Assessment Systemic Inflammatory Response Syndrome, consider sepsis due to UTI, complicated with indwelling Shen catheter, growing multidrug resistant Enterobacter and E. faecalis DM HTN chronic CHF CAD S/P CABG S/P PEG tube placement S/P shen catheter placement sacral decubitus ulcer stage 4 dementia history of CVA Plan continue Amikacin and Vancomycin day 3 to complete 7-10 days - will need to monitor renal function while on these antibiotics
[2017-04-17] MEDS: Sodium Chloride 0.45% 1,000 ML IV SCH ×2 (01:14→17:35)
[2017-04-17] MEDS: DEXTROSE 5% IVPB SCH ×2 (05:00→18:31)
[2017-04-17] MEDS: WATER IVPB SCH ×2 (05:00→18:31)
[2017-04-17] MEDS: AMIKACIN IVPB SCH ×2 (05:00→18:31)
[2017-04-17] MEDS: Insulin Lispro (humaLOG) LOW Coverage SC SCH ×4 (06:58→22:52)
--- NOTE | 2017-04-17 07:25 | HP ---
HISTORY OF PRESENT ILLNESS: She is now in Transitional Care Unit. She was in the hospital side. She was transferred over last night. She is a 71-year-old female who was brought to the emergency room by the daughter with a very large sacral ulcer needing treatment. PAST MEDICAL HISTORY: She has a past medical history of dementia, stroke, diabetes, hypertension, CHF, status post cardiac bypass, PEG tube, Rogers catheter, sacral decubitus ulcer stage IV, some hematuria. She has been doing well. The ulcer is getting worse at home. She had a debridement of the ulcer. She had CVA back in October of 2016, nonverbal, contracted with diabetes, unstageable sacral wound, bed bound, bedridden, feeding tube, diverticulitis history in the past, incontinence, depression, PEG tube placement although she gets fed on 5 cans of Glucerna a day. SOCIAL HISTORY: Nonsmoker, nondrinker, no alcohol. ALLERGIES: PENICILLIN. MEDICATIONS: She is currently on Amikacin, Colace, Cozaar, insulin, Levemir, Lipitor, Lopressor, Lovenox, vitamins, Pepcid, Plavix, IV fluids, Tylenol, Ultram, vancomycin, and Zofran. REVIEW OF SYSTEMS: She is nonverbal. She opens her eyes at her baseline. She has a large decubitus that needs treatment, on IV antibiotics. PHYSICAL EXAMINATION: GENERAL: She is in bed, contracted. No apparent toxic-looking appearance right now. She is demented, is at baseline, her eyes are open. VITAL SIGNS: She has a 99.4 temperature, 88 pulse, 122/84 blood pressure, 20 respiratory rate, 100% O2 sat on 2 liters nasal cannula. HEENT: Head is atraumatic, normocephalic. Extraocular muscles are intact. Throat is moist. HEART: Regular rate. Normal S1, S2. LUNGS: Decreased breath sounds bilaterally. No apparent wheezing, rhonchi, or rales. ABDOMEN: Soft. She has a feeding tube. Positive bowel sounds. EXTREMITIES: She is contracted. No edema. NEUROLOGIC: GCS is 15. She is alert. Her eyes are open. She has a stage IV sacral decubitus, unstageable. LABORATORY DATA: Her last labs, she has 196 sugar, 215 sugar. IMPRESSION AND PLAN: We will order labs; it was not done yet this morning. She has insulin coverage, Levemir 35 at night time. I will increase this to 38. Continue to check her labs tomorrow. Continue with IV antibiotics and skin care by Surgery. She has consults with Infectious Disease, Wound Care, Surgery, and Urology and she has a severe sacral ulcer, infected, old cerebrovascular accident, urinary tract infection, bedridden, systemic inflammatory response syndrome, diabetes. Lake Broderick DO MTDSophia
[2017-04-17] MEDS: Vancomycin 1gm in NS 250ml 1 GM/250 ML BAG IVPB SCH ×2 (08:45→17:33)
[2017-04-17] MEDS: Multi Vitamins 15 mL UD Oral Solution PEG SCH (08:45)
[2017-04-17] MEDS: Enoxaparin 40 mg Syringe SC SCH (09:00)
[2017-04-17] MEDS: Collagenase 250 Units/gm Ointment(30 gm) TOP SCH (09:00)
--- NOTE | 2017-04-17 12:46 | PN ---
DATE: SUBJECTIVE: She is resting comfortably in bed. She is very alert this morning, not talking she would like to. Her eyes are open and she is looking at me very well, almost got a smile out of her. PHYSICAL EXAMINATION VITAL SIGNS: She has a 99.2 temperature, 89 pulse, 157/87 blood pressure. HEENT: Head is traumatic, normocephalic. HEART: Regular rate. LUNGS: Decreased breath sounds. ABDOMEN: Soft. EXTREMITIES: Contracted. A large decubitus ulcer is present. MEDICATIONS: She is currently on amikacin, Colace, Cozaar, insulin, Levemir, Lipitor, Lopressor, Lovenox, vitamins, Pepcid, Plavix, Santyl, IV fluids, Tylenol, Ultram, vancomycin and Zofran. LABORATORY DATA: She has a 140 sodium; potassium 4.3; last blood sugar was 174, it had been in low 200s also, 217 and 207; calcium is 9.4, AST is 19, ALT is 36, alkaline phosphatase 80. ASSESSMENT AND PLAN: I will order labs again and order CBC and a chemistry again, not sure why the labs were not well, they are being ordered. I will address her medicine for diabetes. She is on tube feedings. Continue aggressive treatment and care for her large infected sacral decubitus. Lake Broderick DO MTDD
--- NOTE | 2017-04-17 17:03 | CP.PCM.PN ---
Subjective - Date & Time of Evaluation Date of Evaluation: 04/17/17 Time of Evaluation: 11:35 - Subjective Subjective: More awake compared to previous days, no vomiting, no diarrhea. No fevers. Objective - Vital Signs/Intake and Output Vital Signs (last 24 hours): Temp Pulse Resp BP Pulse Ox 99.2 F 80 16 150/80 100 04/16/17 16:28 04/16/17 10:20 04/16/17 10:00 04/16/17 10:20 04/15/17 16:29 Intake and Output: 04/16/17 04/16/17 06:59 18:59 Intake Total 0 320 Output Total 1650 1200 Balance -1650 -880 - Medications Medications: Current Medications Acetaminophen (Tylenol 325mg Tab) 650 mg PEG Q6H PRN; Protocol PRN Reason: Fever >100.4 F Last Admin: 04/16/17 16:28 Dose: 650 mg Atorvastatin Calcium (Lipitor) 80 mg PEG DIN [facility] PRN Reason: Protocol Last Admin: 04/15/17 18:11 Dose: 80 mg Clopidogrel Bisulfate (Plavix) 75 mg PEG DAILY [facility] PRN Reason: Protocol Last Admin: 04/16/17 10:19 Dose: 75 mg Collagenase (Santyl) 0 gm TOP DAILY [facility] Last Admin: 04/16/17 12:21 Dose: 1 applic Docusate Sodium (Colace Liquid) 100 mg PEG BID [facility] PRN Reason: Protocol Last Admin: 04/16/17 10:18 Dose: 100 mg Enoxaparin Sodium (Lovenox) 40 mg SC DAILY [facility] PRN Reason: Protocol Last Admin: 04/16/17 10:16 Dose: 40 mg Famotidine (Pepcid) 20 mg PEG 2200 [facility] PRN Reason: Protocol Last Admin: 04/15/17 21:22 Dose: 20 mg Amikacin Sulfate 250 mg/ (Dextrose) 102 mls @ 204 mls/hr IVPB 0600,1800 [facility] PRN Reason: Protocol Last Admin: 04/16/17 05:09 Dose: 204 mls/hr Vancomycin HCl (Vancomycin 1gm) 1 gm in 250 mls @ 167 mls/hr IVPB 0800,1800 [facility] PRN Reason: Protocol Last Admin: 04/16/17 10:17 Dose: 167 mls/hr Sodium Chloride (Sodium Chloride 0.45%) 1,000 mls @ 60 mls/hr IV .[id number] [facility] PRN Reason: Protocol Last Admin: 04/16/17 10:17 Dose: 60 mls/hr Insulin Detemir (Levemir) 38 unit SC HS [facility] PRN Reason: Protocol Insulin Human Lispro (Humalog Low) 0 units SC ACHS [facility] PRN Reason: Protocol Last Admin: 04/16/17 12:19 Dose: 2 units Losartan Potassium (Cozaar) 25 mg PEG DAILY [facility] PRN Reason: Protocol Last Admin: 04/16/17 10:20 Dose: 25 mg Metoprolol Tartrate (Lopressor) 50 mg PEG 0800,1800 [facility] PRN Reason: Protocol Last Admin: 04/16/17 10:18 Dose: 50 mg Multivitamins/Vitamin C (Multi-Delyn Liquid) 15 ml PEG 0800 [facility] PRN Reason: Protocol Last Admin: 04/16/17 10:19 Dose: 15 ml Ondansetron HCl (Zofran Inj) 4 mg IVP Q6H PRN; Protocol PRN Reason: Nausea/Vomiting Tramadol HCl (Ultram) 50 mg GT Q8H PRN; Protocol PRN Reason: Pain, moderate (4-7) - Labs Labs: 04/16/17 10:50 - Constitutional Appears: Chronically Ill - Head Exam Head Exam: NORMAL INSPECTION - Neck Exam Neck Exam: absent: Meningismus - Respiratory Exam Respiratory Exam: Decreased Breath Sounds - Cardiovascular Exam Cardiovascular Exam: +S1, +S2 - GI/Abdominal Exam GI & Abdominal Exam: Soft. absent: Tenderness Assessment and Plan - Assessment and Plan (Free Text) Plan: Assessment Systemic Inflammatory Response Syndrome, consider sepsis due to UTI, complicated with indwelling Shen catheter, growing multidrug resistant Enterobacter and E. faecalis DM HTN chronic CHF CAD S/P CABG S/P PEG tube placement S/P shen catheter placement sacral decubitus ulcer stage 4 dementia history of CVA Plan continue Amikacin and Vancomycin day 4 to complete 7-10 days - will need to continue to monitor renal function while on these antibiotics
--- NOTE | 2017-04-17 20:09 | CON ---
DATE: CARDIOLOGY CONSULTATION REASON FOR CONSULTATION: Ischemic cardiomyopathy. HISTORY OF PRESENT ILLNESS: The patient is a 71 years old female, who has a history of coronary artery disease, status post coronary artery bypass surgery and history of ischemic cardiomyopathy, initially was admitted on 04/11/2017 for sacral decubitus debridement. The patient has a history of dementia, stroke, bedridden with gastrostomy tube feeding. The patient's echo in the morning of the surgical debridement revealed severely impaired ejection fraction with anteroseptal hypokinesis, [id number] pulmonary hypertension. Ejection fraction was estimated at 30%. The patient was transferred to TCU. The patient is nonverbal since admission. No reported respiratory distress. SOCIAL HISTORY: The patient lives with her daughter. MEDICATIONS: Amikacin 250 mg intravenously twice a day, Colace 100 mg twice a day via gastrostomy tube, Cozaar 25 mg once a day, Levemir 40 units subcutaneously at bedtime, Lipitor 80 mg once a day, Lopressor 50 mg twice a day, Lovenox 40 mg subcutaneously once a day, Plavix 75 mg once a day, vancomycin 1 g intravenously twice a day, Ultram 50 mg q.8 hours via gastrostomy tube, Zofran 4 mg intravenously q.6 hours p.r.n. for nausea and vomiting. REVIEW OF SYSTEMS: No reported hypotension, no reported seizures, and no reported respiratory distress. PHYSICAL EXAMINATION: GENERAL: The patient is an elderly female, who does not appear to be in acute distress, but she is nonverbal. VITAL SIGNS: Blood pressure 154/91, heart rate 92, temperature 99.2, respirations 20. HEENT: Pale conjunctivae. CHEST: Diminished breath sounds at the bases. HEART: S1, S2 regular. ABDOMEN: Soft. EXTREMITIES: Trace leg edema. LABORATORY DATA: EKG on 04/14/2016 revealed sinus rhythm with nonspecific T-wave abnormality, heart rate was 92. Hemoglobin and hematocrit 2 days ago 9.8 and 30.7, white count and platelet count were within normal limits, Yesterday, SMA-7: sodium 142, potassium 4.3, chloride 102, CO2 of 30, glucose 107, BUN 12, creatinine 0.4. ASSESSMENT: 1. Ischemic cardiomyopathy. 2. Coronary artery disease status post coronary artery bypass surgery. 3. History of cerebrovascular accident. 4. Status post sacral decubitus debridement. 5. Uncontrolled hypertension and uncontrolled diabetes mellitus. 6. Urinary tract infection. RECOMMENDATIONS: Continue current IV amikacin and IV vancomycin. Continue Lipitor at 80 mg once daily , Cozaar 25 mg daily, Lopressor 50 mg twice a day, start Aldactone 25 mg orally once a day. Wesley Hanley MD
[2017-04-17] MEDS: Insulin Detemir 100 units/ml Vial (Levemir) SC SCH (22:53)
[2017-04-18] MEDS: DEXTROSE 5% IVPB SCH (05:22)
[2017-04-18] MEDS: WATER IVPB SCH (05:22)
[2017-04-18] MEDS: AMIKACIN IVPB SCH (05:22)
[2017-04-18] MEDS: Sodium Chloride 0.45% 1,000 ML IV SCH ×2 (05:27→09:34)
[2017-04-18 07:25] LABS: MEAN CELL VOLUME 91.9 fl (80.0-105.0); MEAN CORPUSCULAR HGB CONC 31.5 g/dl (31.0-37.0); MEAN PLATELET VOLUME 11.4 fl (7.0-11.0); RBC 3.45 10^6/uL (3.5-6.1); RED CELL DISTRIBUTION WIDTH 13.9 % (11.5-14.5); WHITE BLOOD COUNT 8.3 10^3/ul (4.5-11.0)
[2017-04-18 07:43] LABS: ALB/GLOB RATIO 0.9 (1.1-1.8); ALT/SGPT 30 U/L (7-56); AST/SGOT 23 U/L (14-36); BLOOD UREA NITROGEN 10 mg/dL (7-21); CALCIUM 9.6 mg/dL (8.4-10.5); GFR AFRICAN-AMERICAN > 60; GFR NON-AFRICAN AMERICAN > 60
[2017-04-18] MEDS: Insulin Lispro (humaLOG) LOW Coverage SC SCH ×4 (08:48→21:55)
[2017-04-18] MEDS: Vancomycin 1gm in NS 250ml 1 GM/250 ML BAG IVPB SCH ×2 (08:52→17:24)
[2017-04-18] MEDS: Multi Vitamins 15 mL UD Oral Solution PEG SCH (09:00)
[2017-04-18] MEDS: Enoxaparin 40 mg Syringe SC SCH (09:01)
[2017-04-18] MEDS: Collagenase 250 Units/gm Ointment(30 gm) TOP SCH (09:01)
--- NOTE | 2017-04-18 15:44 | PN ---
DATE: SUBJECTIVE: I saw her in the Transitional Care Unit. She is getting skin care. She is being rotated. She is on IV antibiotics. She is alert, eyes open, in no apparent distress. MEDICATIONS: She is on Aldactone, amikacin, Colace, Cozaar, insulin Levemir, Lipitor, Lopressor, Lovenox, vitamins, Pepcid, Plavix, Santyl, IV fluids, Tylenol, Ultram, vancomycin IV and Zofran. PHYSICAL EXAMINATION: VITAL SIGNS: She has a 99.5 temperature, 89 pulse, 132/73 blood pressure, 19 respiratory rate and 100% O2 sat on 2 liters nasal cannula. HEENT: Head is atraumatic, normocephalic. HEART: Regular rate. LUNGS: Decreased breath sounds, but clear. ABDOMEN: Soft. EXTREMITIES: Contracted. No edema and has a large sacral ulcer. LABORATORY DATA: She has a 8.3 white count, 10 hemoglobin, 31.7 hematocrit with a 278 platelets. Sodium 143, potassium 4, BUN is 10, creatinine 0.4, GFR is greater than 60, sugar is 203, I will try and adjust her diabetes medications. Calcium is 9.6, total bilirubin is 0.3, AST is 23, ALT is 30, alkaline phosphatase is 84, total protein 6.3. ASSESSMENT AND PLAN: She is being seen by Infectious Disease, Surgery. She has systemic inflammatory response syndrome due to urinary tract infection, large sacral ulcer stage IV, on lots of IV medications. We will continue aggressive treatment and care on her. She has old cerebrovascular accident, urinary tract infection. She is bedridden, systemic inflammatory response syndrome, diabetes and she has a wound VAC on to help it heal. We will check her labs tomorrow. Lake Broderick DO
[2017-04-18] MEDS: Insulin Detemir 100 units/ml Vial (Levemir) SC SCH (21:55)
--- NOTE | 2017-04-18 22:00 | PN ---
DATE: 04/18/2017 SUBJECTIVE: Patient is in bed, in room 319. She was seen early this morning. No fevers. No chills. PHYSICAL EXAMINATION: VITAL SIGNS: Temperature is 98, blood pressure is 160/80, respiratory rate of 18, heart rate of 97. HEENT: Unremarkable. NECK: Supple. LUNGS: Have decreased breath sounds. HEART: Normal S1, S2. ABDOMEN: Soft, nontender. LABORATORY EXAMINATION: Reveals a white count of 8.3, hemoglobin of 10. BUN of 10, creatinine of 0.4. Blood culture negative. Urine culture initially had Enterobacter aerogenes and Enterococcus. Repeat urine culture is negative. Review of the orders reveals the patient to be on IV amikacin, IV vancomycin. ASSESSMENT AND PLAN: This is a 71-year-old female with sepsis with complicated urinary tract as the source with indwelling Rogers catheter with multidrug resistant Enterobacter and Enterococcus faecalis in a diabetic with hypertension, chronic congestive heart failure, coronary artery disease, sacral decubitus ulcer, dementia, on day #5 of vancomycin and amikacin. Review of creatinine reveals the patient's creatinine at 0.4 and review of microbiology reveals repeat urine culture on the 4th is negative. The Enterobacter is sensitive to amikacin and colistin and the enterococcus is sensitive to ampicillin, linezolid and penicillin. PATIENT IS ALLERGIC TO PENICILLIN and unable to use penicillin and patient is on tramadol, which makes Zyvox on drug-drug interaction, not feasible to use. Since the repeat urine culture is negative, we will discontinue the amikacin and follow with you. Omid Tariq MD
[2017-04-19] MEDS: Sodium Chloride 0.45% 1,000 ML IV SCH ×3 (01:35→20:20)
[2017-04-19 07:00] LABS: HEMOGLOBIN 10.2 g/dL (12.0-16.0); MEAN CELL VOLUME 90.2 fl (80.0-105.0); MEAN CORPUSCULAR HEMOGLOBIN 28.6 pg (25.0-35.0); MEAN CORPUSCULAR HGB CONC 31.7 g/dl (31.0-37.0); MEAN PLATELET VOLUME 11.5 fl (7.0-11.0); RBC 3.57 10^6/uL (3.5-6.1); RED CELL DISTRIBUTION WIDTH 13.9 % (11.5-14.5); WHITE BLOOD COUNT 8.8 10^3/ul (4.5-11.0)
[2017-04-19 07:03] LABS: ALB/GLOB RATIO 0.9 (1.1-1.8); ALBUMIN 3.1 g/dL (3.0-4.8); ALT/SGPT 30 U/L (7-56); AST/SGOT 26 U/L (14-36); BLOOD UREA NITROGEN 10 mg/dL (7-21); CALCIUM 9.5 mg/dL (8.4-10.5); GFR AFRICAN-AMERICAN > 60; GFR NON-AFRICAN AMERICAN > 60
[2017-04-19] MEDS: Insulin Lispro (humaLOG) LOW Coverage SC SCH ×4 (07:50→22:10)
[2017-04-19] MEDS: Vancomycin 1gm in NS 250ml 1 GM/250 ML BAG IVPB SCH ×2 (08:28→21:01)
[2017-04-19] MEDS: Multi Vitamins 15 mL UD Oral Solution PEG SCH (08:29)
[2017-04-19] MEDS: Enoxaparin 40 mg Syringe SC SCH (09:01)
[2017-04-19] MEDS: Collagenase 250 Units/gm Ointment(30 gm) TOP SCH (09:02)
[2017-04-19] MEDS: Insulin Detemir 100 units/ml Vial (Levemir) SC SCH (22:20)
--- NOTE | 2017-04-20 01:20 | PN ---
DATE: SUBJECTIVE: The patient is seen in bed, in no acute distress, nontoxic, was seen earlier this morning. PHYSICAL EXAMINATION: VITAL SIGNS: Temperature of 99, blood pressure is 160/80, respiratory rate of 18, T-max is 101. HEENT: Unremarkable. NECK: Supple. LUNGS: Have decreased breath sounds. HEART: Normal S1 and S2. ABDOMEN: Soft. LABORATORY DATA: Reveals a white count of 8.8. Chemistries are noted, and review of orders. ASSESSMENT AND PLAN: This is a 71-year-old female, was seen in room 319, with sepsis, complicated urinary tract infection, multidrug resistant Enterobacter and Enterococcus faecalis, diabetic, hypertension, chronic congestive heart failure, coronary artery disease, sacral decubitus ulcer, dementia, day #6 of vancomycin. We will discontinue the vancomycin also. Patient had received several days of amikacin, now with a new fever, we will follow the fever curve, and we will order blood and urine cultures, and urinalysis. We will follow with you. Omid Tariq MD
[2017-04-20 05:54] LABS: URINE BILIRUBIN NEGATIVE (NEGATIVE); URINE BLOOD NEGATIVE (NEGATIVE); URINE GLUCOSE (UA) NEGATIVE (NEGATIVE); URINE LEUKOCYTE ESTERASE NEGATIVE Leu/uL (NEGATIVE); URINE PROTEIN NEGATIVE mg/dL (<30 mg/dL)
[2017-04-20 05:58] LABS: URINE APPEARANCE CLEAR (CLEAR); URINE COLOR YELLOW (YELLOW)
[2017-04-20] MEDS: Insulin Lispro (humaLOG) LOW Coverage SC SCH ×4 (06:59→22:30)
[2017-04-20 07:04] LABS: HEMOGLOBIN 9.4 g/dL (12.0-16.0); MEAN CELL VOLUME 90.6 fl (80.0-105.0); MEAN CORPUSCULAR HEMOGLOBIN 28.5 pg (25.0-35.0); MEAN CORPUSCULAR HGB CONC 31.4 g/dl (31.0-37.0); MEAN PLATELET VOLUME 11.5 fl (7.0-11.0); RBC 3.3 10^6/uL (3.5-6.1); RED CELL DISTRIBUTION WIDTH 13.9 % (11.5-14.5)
[2017-04-20 07:20] LABS: ALB/GLOB RATIO 0.9 (1.1-1.8); ALBUMIN 2.9 g/dL (3.0-4.8); ALT/SGPT 30 U/L (7-56); AST/SGOT 21 U/L (14-36); BLOOD UREA NITROGEN 12 mg/dL (7-21); CALCIUM 9.4 mg/dL (8.4-10.5); GFR AFRICAN-AMERICAN > 60; GFR NON-AFRICAN AMERICAN > 60
[2017-04-20] MEDS: Multi Vitamins 15 mL UD Oral Solution PEG SCH (08:26)
--- NOTE | 2017-04-20 08:54 | CP.PCM.PN ---
Subjective - Date & Time of Evaluation Date of Evaluation: 04/20/17 Time of Evaluation: 08:51 - Subjective Subjective: Surgery: Dr. Daniel Patient nonverbal. Per nursing no acute events overnight. Objective - Vital Signs/Intake and Output Vital Signs (last 24 hours): Temp Pulse Resp BP Pulse Ox 99.8 F H 104 H 20 152/82 H 96 04/19/17 17:34 04/20/17 08:26 04/19/17 16:00 04/20/17 08:26 04/19/17 16:00 Intake and Output: 04/20/17 04/20/17 06:59 18:59 Intake Total 0 Output Total 1450 Balance -1450 - Medications Medications: Current Medications Acetaminophen (Tylenol 325mg Tab) 650 mg PEG Q6H PRN; Protocol PRN Reason: Fever >100.4 F Last Admin: 04/19/17 17:34 Dose: 650 mg Atorvastatin Calcium (Lipitor) 80 mg PEG DIN [facility] PRN Reason: Protocol Last Admin: 04/19/17 17:31 Dose: 80 mg Clopidogrel Bisulfate (Plavix) 75 mg PEG DAILY [facility] PRN Reason: Protocol Last Admin: 04/19/17 09:02 Dose: 75 mg Collagenase (Santyl) 0 gm TOP DAILY [facility] Last Admin: 04/19/17 09:02 Dose: 1 applic Docusate Sodium (Colace Liquid) 100 mg PEG BID [facility] PRN Reason: Protocol Last Admin: 04/19/17 17:33 Dose: 100 mg Enoxaparin Sodium (Lovenox) 40 mg SC DAILY [facility] PRN Reason: Protocol Last Admin: 04/19/17 09:01 Dose: 40 mg Famotidine (Pepcid) 20 mg PEG 2200 [facility] PRN Reason: Protocol Last Admin: 04/19/17 21:23 Dose: 20 mg Sodium Chloride (Sodium Chloride 0.45%) 1,000 mls @ 60 mls/hr IV .[id number] [facility] PRN Reason: Protocol Last Admin: 04/19/17 20:20 Dose: 60 mls/hr Insulin Detemir (Levemir) 40 unit SC HS [facility] PRN Reason: Protocol Last Admin: 04/19/17 22:20 Dose: 40 unit Insulin Human Lispro (Humalog Low) 0 units SC ACHS [facility] PRN Reason: Protocol Last Admin: 04/20/17 06:59 Dose: 3 units Losartan Potassium (Cozaar) 25 mg PEG DAILY [facility] PRN Reason: Protocol Last Admin: 04/19/17 09:01 Dose: 25 mg Metoprolol Tartrate (Lopressor) 50 mg PEG 0800,1800 [facility] PRN Reason: Protocol Last Admin: 04/20/17 08:26 Dose: 50 mg Multivitamins/Vitamin C (Multi-Delyn Liquid) 15 ml PEG 0800 [facility] PRN Reason: Protocol Last Admin: 04/20/17 08:26 Dose: 15 ml Ondansetron HCl (Zofran Inj) 4 mg IVP Q6H PRN; Protocol PRN Reason: Nausea/Vomiting Spironolactone (Aldactone) 12.5 mg PEG DAILY [facility] Last Admin: 04/19/17 10:25 Dose: 12.5 mg Tramadol HCl (Ultram) 50 mg GT Q8H PRN; Protocol PRN Reason: Pain, moderate (4-7) Last Admin: 04/17/17 22:33 Dose: 50 mg - Labs Labs: 04/20/17 06:30 04/20/17 06:30 - Constitutional Appears: Non-toxic, No Acute Distress - Head Exam Head Exam: ATRAUMATIC, NORMOCEPHALIC - Eye Exam Eye Exam: EOMI, Normal appearance - ENT Exam ENT Exam: Mucous Membranes Moist - Respiratory Exam Respiratory Exam: NORMAL BREATHING PATTERN. absent: Respiratory Distress - Cardiovascular Exam Cardiovascular Exam: REGULAR RHYTHM. absent: Tachycardia - Back Exam Additional comments: sacral wound with mild exudate on base, otherwise wound is clean measuring 3x3x3 sacral wound Assessment and Plan - Assessment and Plan (Free Text) Assessment: 71 y/o female with sacral wound s/p debridement and wound vac placement Plan: -santyl to base of wound and wound vac replaced today, wound vac changes Q3-Q4 -maintain wound vac on 125mmHG suction -cleared for d/c from surgical standpoint -further recs per Dr. Fredy Cowan PGY3
[2017-04-20] MEDS: Enoxaparin 40 mg Syringe SC SCH (09:02)
[2017-04-20] MEDS: Collagenase 250 Units/gm Ointment(30 gm) TOP SCH (09:03)
--- NOTE | 2017-04-20 09:41 | PN ---
DATE: 04/19/2017 SUBJECTIVE: She is in the Transitional Care Unit. She is alert at her baseline. She is lying in a hospital bed. She has a large decubitus ulcer. She has old CVA, UTI. She is bedridden. She had sepsis, SIRS, diabetes, CHF. MEDICATIONS: She is on multiple medications. She is on Aldactone, Colace, Cozaar, insulin, Levemir, Lipitor, Lopressor, Lovenox, multivitamin, Pepcid, Plavix, Santyl, IV fluids, Tylenol, Ultram, vancomycin, Zofran. PHYSICAL EXAMINATION: VITAL SIGNS: She has a 97.3 temp, 79 pulse, 129/76 blood pressure, 14 respiratory rate, 97% O2 sat. HEENT: Head is atraumatic, normocephalic. The eyes are open that is her baseline. HEART: Regular rate. LUNGS: Decreased breath sounds, but clear. ABDOMEN: Soft, obese, nontender. EXTREMITIES: Contracted. No edema. She has a large sacral ulcer with a wound VAC. ASSESSMENT AND PLAN: We will check her labs tomorrow. Continue with aggressive treatment and care as per Infectious Disease, Surgery, Wound Care. Lake Broderick DO
[2017-04-20] MEDS ORDERED: Insulin Detemir 100 units/ml Vial (Levemir) SC SCH (11:48)
--- NOTE | 2017-04-20 18:06 | RAD ---
HISTORY: Fever. COMPARISON: 04/11/2017 FINDINGS: LUNGS: No active pulmonary disease. PLEURA: No significant pleural effusion identified, no pneumothorax apparent. CARDIOVASCULAR: No radiographic findings to suggest acute or significant cardiovascular disease. Incidental Finding(s): Postoperative changes related to sternotomy. OSSEOUS STRUCTURES: No significant abnormalities. VISUALIZED UPPER ABDOMEN: Normal. OTHER FINDINGS: None. IMPRESSION: No active disease. No significant interval change compared to the prior examination(s).
--- NOTE | 2017-04-20 21:17 | PN ---
DATE: SUBJECTIVE: Patient was seen early this morning. Has low grade fevers. No abdominal pain. PHYSICAL EXAMINATION: VITAL SIGNS: Temperature is 100.5, blood pressure is 128/70, respiratory rate of 18, heart rate of 90. HEENT: Unremarkable. NECK: Supple. LUNGS: Have decreased breath sounds. HEART: Normal S1, S2. ABDOMEN: Soft, nontender. LABORATORY DATA: Reveals a white count of 9000, hemoglobin of 9, platelets of 290. Chemistry reveals a BUN of 12, creatinine of 0.4. Urinalysis is noted. Microbiology reveals urine cultures negative and Dr. Lawton's progress note is reviewed. The sacral wound was noted and reviewed. ASSESSMENT AND PLAN: This is 71-year-old female who was seen earlier this morning in room 319 with surgical team. Initially admitted with sepsis and complicated urinary tract infection,multidrug-resistant Enterobacter and Enterococcus faecalis, diabetic, hypertension, chronic congestive heart failure and coronary artery disease, sacral decubitus ulcer, dementia, currently off of antibiotics. Local wound, sacral wound, was examined with Surgery and the patient does have low grade fevers. We will check on blood cultures and urine cultures from yesterday and we will also order a chest x-ray. Omid Tariq MD
[2017-04-21 06:21] LABS: HEMOGLOBIN 9.7 g/dL (12.0-16.0); MEAN CELL VOLUME 91.5 fl (80.0-105.0); MEAN CORPUSCULAR HEMOGLOBIN 28.3 pg (25.0-35.0); MEAN CORPUSCULAR HGB CONC 30.9 g/dl (31.0-37.0); MEAN PLATELET VOLUME 11.2 fl (7.0-11.0); RBC 3.43 10^6/uL (3.5-6.1); WHITE BLOOD COUNT 8.7 10^3/ul (4.5-11.0)
[2017-04-21 06:45] LABS: ALB/GLOB RATIO 0.9 (1.1-1.8); BLOOD UREA NITROGEN 12 mg/dL (7-21); CALCIUM 9.5 mg/dL (8.4-10.5); GFR AFRICAN-AMERICAN > 60; GFR NON-AFRICAN AMERICAN > 60
[2017-04-21 06:46] LABS: ALT/SGPT 27 U/L (7-56); AST/SGOT 20 U/L (14-36)
[2017-04-21] MEDS: Insulin Lispro (humaLOG) LOW Coverage SC SCH ×4 (06:47→21:45)
[2017-04-21] MEDS: Multi Vitamins 15 mL UD Oral Solution PEG SCH (08:50)
--- NOTE | 2017-04-21 09:22 | PN ---
DATE: 04/20/2017 SUBJECTIVE: I saw her resting comfortably in the transitional care unit. She is on Aldactone, Colace, Cozaar, Humalog, Levemir, Lipitor, Lopressor, Lovenox, multivitamin, Pepcid, Plavix, Santyl, IV fluids, Tylenol, Ultram, and Zofran. OBJECTIVE: VITAL SIGNS: She has a 99.8 temperature, 80 pulse, 134/80 blood pressure, 96% O2 sat on 2 L. HEENT: Head is atraumatic, normocephalic. GENERAL: She is looking at me. She is nonverbal. HEART: Regular rate. LUNGS: Decreased breath sounds, but clear. ABDOMEN: Soft, obese. EXTREMITIES: Contracted. No edema. She has a very large decubitus ulcer and she is bedridden and she has sores and UTI and wound VAC. LABORATORY DATA: She has a 9 white count, 9.4 hemoglobin, 29.9 hematocrit with 290 platelets. Sodium 139, potassium 3.9. BUN 12, creatinine 0.4. GFR is greater than 60. Sugars are still elevated at 226, 250, 273, and 229. Calcium is 9.4. Total bili is 0.4, AST is 21, ALT is 30, and alk phos is 83. She is being seen by Infectious Disease and Surgery for the severe decubitus ulcer. Infectious Disease stopped the vancomycin. She is off the amikacin and now she popped a temperature. We will see whether they want to do surgery. We will continue to follow the sacral wound. We will check her labs tomorrow. She might need more IV antibiotics. I will discuss that with Infectious Disease. We will check her labs tomorrow. Lake Broderick DO
[2017-04-21] MEDS: Collagenase 250 Units/gm Ointment(30 gm) TOP SCH (09:53)
[2017-04-21] MEDS: Enoxaparin 40 mg Syringe SC SCH (09:53)
[2017-04-21] MEDS: Sodium Chloride 0.45% 1,000 ML IV SCH (09:54)
--- NOTE | 2017-04-21 12:34 | PN ---
DATE: SUBJECTIVE: I saw her in the Transitional Care Unit. She is on IV antibiotics and she is on wound care and wound VAC. We will try and get that organized so that she can go home on the wound VAC and hospital bed. PHYSICAL EXAMINATION GENERAL: She is alert and at her baseline, nonverbal. VITAL SIGNS: She had a 100.1 temperature last night, her temperature is 99.4; 92 pulse; 151/86 blood pressure; 20 respiratory rate; 96% O2 saturation. HEENT: Head is atraumatic, normocephalic. HEART: Regular rate. LUNGS: Decreased breath sounds. ABDOMEN: Soft. EXTREMITIES: Contracted. No edema. SKIN: She has large sacral ulcer with a wound VAC. MEDICATIONS: She is currently on Aldactone, Colace, Cozaar, insulin, Lipitor, Lopressor, Lovenox, multivitamin, Pepcid, Plavix, Santyl, IV fluids, Tylenol, Ultram and Zofran. She is off IV antibiotics. LABORATORY DATA: She has an 8.7 white count, 9.7 hemoglobin, 31.4 hematocrit with a 284,000 platelets. Sodium 147, potassium 4.1, BUN is 12, creatinine of 0.5. GFR is greater than 60. Her blood sugar is under 200; 183, 182, and 193. Calcium is 9.5, total bilirubin is 0.4, AST is 20, ALT is 27, alkaline phosphatase 67, total protein 6.4. ASSESSMENT AND PLAN: I will increase the Levemir at nighttime to 48 from 45. Continue with aggressive treatment and care for her sacral ulcer, I will discuss with Cardiology. Continue aggressive treatment and care on Jennifer Kelly and I will discuss with IV about the attempts. Lake Broderick DO
--- NOTE | 2017-04-21 16:28 | CP.PCM.PN ---
Subjective - Date & Time of Evaluation Date of Evaluation: 04/21/17 Time of Evaluation: 11:25 - Subjective Subjective: Still having low grade fevers but not in distress, no diarrhea, with sacral ulcer. Objective - Vital Signs/Intake and Output Vital Signs (last 24 hours): Temp Pulse Resp BP Pulse Ox 99.4 F 92 H 20 150/93 H 96 04/21/17 03:21 04/21/17 08:50 04/20/17 17:24 04/21/17 08:50 04/20/17 17:24 Intake and Output: 04/21/17 04/21/17 06:59 18:59 Intake Total 0 Output Total 1950 Balance -1950 - Medications Medications: Current Medications Acetaminophen (Tylenol 325mg Tab) 650 mg PEG Q6H PRN; Protocol PRN Reason: Fever >100.4 F Last Admin: 04/21/17 02:21 Dose: 650 mg Atorvastatin Calcium (Lipitor) 80 mg PEG DIN [facility] PRN Reason: Protocol Last Admin: 04/20/17 17:43 Dose: 80 mg Clopidogrel Bisulfate (Plavix) 75 mg PEG DAILY [facility] PRN Reason: Protocol Last Admin: 04/20/17 09:02 Dose: 75 mg Collagenase (Santyl) 0 gm TOP DAILY [facility] Last Admin: 04/20/17 09:03 Dose: 1 applic Docusate Sodium (Colace Liquid) 100 mg PEG BID [facility] PRN Reason: Protocol Last Admin: 04/20/17 17:42 Dose: 100 mg Enoxaparin Sodium (Lovenox) 40 mg SC DAILY [facility] PRN Reason: Protocol Last Admin: 04/20/17 09:02 Dose: 40 mg Famotidine (Pepcid) 20 mg PEG 2200 [facility] PRN Reason: Protocol Last Admin: 04/20/17 22:29 Dose: 20 mg Sodium Chloride (Sodium Chloride 0.45%) 1,000 mls @ 60 mls/hr IV .[id number] [facility] PRN Reason: Protocol Last Admin: 04/19/17 20:20 Dose: 60 mls/hr Insulin Detemir (Levemir) 48 unit SC HS [facility] PRN Reason: Protocol Insulin Human Lispro (Humalog Low) 0 units SC ACHS [facility] PRN Reason: Protocol Last Admin: 04/21/17 06:47 Dose: 1 units Losartan Potassium (Cozaar) 25 mg PEG DAILY [facility] PRN Reason: Protocol Last Admin: 04/20/17 09:03 Dose: 25 mg Metoprolol Tartrate (Lopressor) 50 mg PEG 0800,1800 [facility] PRN Reason: Protocol Last Admin: 04/21/17 08:50 Dose: 50 mg Multivitamins/Vitamin C (Multi-Delyn Liquid) 15 ml PEG 0800 [facility] PRN Reason: Protocol Last Admin: 04/21/17 08:50 Dose: 15 ml Ondansetron HCl (Zofran Inj) 4 mg IVP Q6H PRN; Protocol PRN Reason: Nausea/Vomiting Spironolactone (Aldactone) 12.5 mg PEG DAILY [facility] Last Admin: 04/20/17 09:01 Dose: 12.5 mg Tramadol HCl (Ultram) 50 mg GT Q8H PRN; Protocol PRN Reason: Pain, moderate (4-7) Last Admin: 04/17/17 22:33 Dose: 50 mg - Labs Labs: 04/21/17 06:10 04/21/17 06:10 - Constitutional Appears: Chronically Ill - Head Exam Head Exam: NORMAL INSPECTION - ENT Exam ENT Exam: Mucous Membranes Moist - Neck Exam Neck Exam: absent: Meningismus - Respiratory Exam Respiratory Exam: Decreased Breath Sounds - Cardiovascular Exam Cardiovascular Exam: +S1, +S2 - GI/Abdominal Exam GI & Abdominal Exam: Soft. absent: Tenderness Assessment and Plan - Assessment and Plan (Free Text) Plan: Assessment S/P sepsis due to UTI, complicated with indwelling Shen catheter, grew multidrug resistant Enterobacter and E. faecalis low grade fevers, R/O infection DM HTN chronic CHF CAD S/P CABG S/P PEG tube placement S/P shen catheter placement sacral decubitus ulcer stage 4 dementia history of CVA Plan repeat blood and cultures have been negative, and repeat CXR is negative - will get PCT and repeat blood cx and monitor clinically continue local wound care for the sacral ulcer
[2017-04-21] MEDS: Insulin Detemir 100 units/ml Vial (Levemir) SC SCH (21:44)
[2017-04-22] MEDS: Insulin Lispro (humaLOG) LOW Coverage SC SCH ×4 (06:48→22:21)
[2017-04-22] MEDS: Multi Vitamins 15 mL UD Oral Solution PEG SCH (09:00)
[2017-04-22] MEDS: Enoxaparin 40 mg Syringe SC SCH (10:26)
--- NOTE | 2017-04-22 14:41 | PN ---
DATE: 04/22/2017 SUBJECTIVE: The patient is in bed, was seen early this morning in room 319. Family member sleeping on the chair next to the patient. The patient with a temperature. PHYSICAL EXAMINATION: VITAL SIGNS: Temperature is 100.2, blood pressure is 160/90, respiratory rate of 18. HEENT: Examination of HEENT is unremarkable. NECK: Supple. LUNGS: Have decreased breath sounds. HEART: Normal S1, S2. ABDOMEN: Soft. LABORATORY DATA: Laboratory examination reveals a white count of 8.7, hemoglobin of 9, platelets of 284. BUN of 12, creatinine of 0.5. Procalcitonin is 2.13. Urinalysis is noted. Microbiology reveals the blood cultures are negative. Review of the medications reveals the patient to be off of antibiotics. ASSESSMENT AND PLAN: A 71-year-old female, still with low-grade fevers. She has had the sacral ulcer, status post sepsis secondary to urinary tract infection complicated with indwelling Rogers catheter grew multidrug resistant Enterobacter and Enterococcus faecalis, diabetic, hypertension. Chest x-ray is negative. Blood cultures are negative. White count is normal. Procalcitonin is 2.13. Urinalysis is unremarkable. Blood and urine cultures are negative. We will continue to monitor and local wound care for the sacrum. Omid Tariq MD
[2017-04-22] MEDS: Insulin Detemir 100 units/ml Vial (Levemir) SC SCH (22:42)
[2017-04-23] MEDS: Sodium Chloride 0.45% 1,000 ML IV SCH (04:11)
[2017-04-23] MEDS: Insulin Lispro (humaLOG) LOW Coverage SC SCH ×4 (07:01→21:36)
[2017-04-23 07:58] LABS: HEMOGLOBIN 9.3 g/dL (12.0-16.0); MEAN CORPUSCULAR HEMOGLOBIN 28.6 pg (25.0-35.0); MEAN CORPUSCULAR HGB CONC 31.1 g/dl (31.0-37.0); MEAN PLATELET VOLUME 11.2 fl (7.0-11.0); RBC 3.25 10^6/uL (3.5-6.1); WHITE BLOOD COUNT 9.8 10^3/ul (4.5-11.0)
[2017-04-23 08:26] LABS: ALB/GLOB RATIO 0.9 (1.1-1.8); ALBUMIN 2.7 g/dL (3.0-4.8); ALT/SGPT 27 U/L (7-56); AST/SGOT 25 U/L (14-36); BLOOD UREA NITROGEN 13 mg/dL (7-21); CALCIUM 9.7 mg/dL (8.4-10.5); GFR AFRICAN-AMERICAN > 60; GFR NON-AFRICAN AMERICAN > 60
[2017-04-23] MEDS: Multi Vitamins 15 mL UD Oral Solution PEG SCH (09:17)
[2017-04-23] MEDS: Enoxaparin 40 mg Syringe SC SCH (09:20)
--- NOTE | 2017-04-23 16:51 | PN ---
DATE: 04/23/2017 SUBJECTIVE: The patient is in bed in no acute distress and comfortable with continues to have low-grade fevers. PHYSICAL EXAMINATION VITAL SIGNS: Temperature is 97.8, T-max was 100.4 yesterday and respiratory rate of 18, heart rate of 89, blood pressure is 140/90. HEENT: Unremarkable. NECK: Supple. LUNGS: Have decreased breath sounds. HEART: Normal S1, S2. ABDOMEN: Soft, nontender. LABORATORY DATA: Laboratory examination reveals a white count of 9.8, hemoglobin of 9, platelets of 345. Chemistries reveals a BUN of 13, creatinine 0.4 and blood cultures and urine cultures are negative and the patient had a chest x-ray two years ago, results noted. ASSESSMENT AND PLAN: This is a 71-year-old female with a sacral ulcer, status post sepsis secondary to urinary tract infection, complicated with an indwelling Rogers catheter, multidrug-resistant Enterobacter and Enterococcus in the patient with diabetes and hypertension. Cultures negative and off of antibiotics and comfortable, low grade fevers. We will continue to follow the patient. Omid Tariq MD
--- NOTE | 2017-04-23 17:51 | RAD ---
HISTORY: Fever COMPARISON: 04/20/2017 FINDINGS: LUNGS: Left lower lobe infiltrate a new finding compared to the prior study. PLEURA: Left pleural effusion and new finding compared to the prior study. CARDIOVASCULAR: Normal. OSSEOUS STRUCTURES: No significant abnormalities. VISUALIZED UPPER ABDOMEN: Normal. OTHER FINDINGS: None. IMPRESSION: Left lower lobe infiltrate/left pleural effusion new findings.
--- NOTE | 2017-04-23 19:18 | US ---
HISTORY: Leg pain and swelling. Evaluate for DVT PHYSICIAN(S): Tucker Metz MD. TECHNIQUE: Duplex sonography and color-flow Doppler with graded compression were used to evaluate the deep venous systems of both lower extremities. The exam is somewhat limited by the patient's inability to position FINDINGS: The visualized deep venous systems of both lower extremities are sonographically normal and compressible. Normal wave forms and augmentation are seen. There is no sonographic evidence for deep venous thrombosis in the visualized segments of both lower extremities. IMPRESSION: No sonographic evidence for deep venous thrombosis in the visualized segments of both lower extremities.
[2017-04-23] MEDS: Vancomycin 1gm in NS 250ml 1 GM/250 ML BAG IVPB SCH (20:30)
[2017-04-23] MEDS: Meropenem IV 1 gm in NS 50 ML IVPB SCH (21:38)
[2017-04-23 21:40] LABS: URINE BILIRUBIN NEGATIVE (NEGATIVE); URINE BLOOD TRACE-INTACT (NEGATIVE); URINE GLUCOSE (UA) NEGATIVE (NEGATIVE); URINE LEUKOCYTE ESTERASE NEGATIVE Leu/uL (NEGATIVE); URINE PROTEIN NEGATIVE mg/dL (<30 mg/dL); URINE UROBILINOGEN 0.2 E.U./dL (<1 E.U./dL)
[2017-04-23] MEDS: Insulin Detemir 100 units/ml Vial (Levemir) SC SCH (21:41)
[2017-04-23 21:57] LABS: URINE APPEARANCE CLEAR (CLEAR); URINE COLOR YELLOW (YELLOW)
[2017-04-23 22:50] LABS: URINE BACTERIA MOD (NEG); URINE RBC 0 - 2 /hpf (0-2); URINE WBC 0 - 2 /hpf (0-6)
--- NOTE | 2017-04-24 05:28 | DS ---
HISTORY OF PRESENT ILLNESS: She has no changes in physical condition. She is comfortable in bed. She is opening up her eyes and she is looking at me. She is off IV antibiotics at this time. No changes clinically. PHYSICAL EXAMINATION: VITAL SIGNS: Temperature 97.8, 89 pulse, 140/77 blood pressure. HEENT: Head is atraumatic, normocephalic. HEART: Regular rate with decreased breath sounds, cleared. Chest x-ray was clear. ABDOMEN: Soft, obese. EXTREMITIES: Trace edema and contracted and has a large sacral wound with a wound VAC. LABORATORY DATA: She has a 139 sodium, potassium 4.5, BUN 13, creatinine 0.4, GFR is greater than 60, sugar is 181, calcium is 9.7, total bili is 0.3, AST is 25, ALT is 27, alk phos 81, total protein is 5.9. White count is 9.8, hemoglobin 9.3, hematocrit 29.9, platelets of 343. ASSESSMENT AND PLAN: She will be discharged today. She is going to go home on Aldactone, Colace, Cozaar, Levemir, Lipitor, Lopressor, Lovenox, vitamins, Pepcid, Plavix, Santyl, Tylenol, Ultram, Zofran and she can have her Plavix back and her Lipitor. She is off IV antibiotics. There is no plan for a catheterization at this time. She has a severe sacral wound from being on her back. She has ischemic cardiomyopathy, coronary artery disease status post coronary artery bypass surgery, history of a cerebrovascular accident, uncontrolled hypertension and diabetes which is better. Urinary tract infection status post antibiotics by Infectious Disease, and she will be discharged today. Lake Broderick DO
[2017-04-24] MEDS: Meropenem IV 1 gm in NS 50 ML IVPB SCH ×3 (05:29→22:12)
[2017-04-24] MEDS: Vancomycin 1gm in NS 250ml 1 GM/250 ML BAG IVPB SCH ×2 (06:38→18:47)
[2017-04-24] MEDS: Insulin Lispro (humaLOG) LOW Coverage SC SCH ×4 (06:48→22:20)
[2017-04-24] MEDS: Multi Vitamins 15 mL UD Oral Solution PEG SCH (08:14)
--- NOTE | 2017-04-24 09:45 | PN ---
DATE: 04/22/2017 SUBJECTIVE: I saw her in the Transitional Care Unit. She is alert, eyes are open, nonverbal, that is her baseline. PHYSICAL EXAMINATION VITAL SIGNS: Temp of 99.8, temperature is 100.2; 166/97 blood pressure, 146/86 blood pressure; 18 respiratory rate, 99% O2 saturation on 2 L. HEENT: Head is atraumatic and normocephalic. HEART: Regular rate. LUNGS: Decreased breath sounds, but clear. ABDOMEN: Soft, obese. EXTREMITIES: No edema, but contracted. SKIN: Has a sacral ulcer. MEDICATIONS: She is on Aldactone, Colace, Cozaar, insulin, Levemir, Lipitor, Lopressor, Lovenox, IV fluids, Pepcid, Plavix, Santyl, Tylenol, Ultram, and Zofran. She is currently off IV antibiotics, which worries me because she is having temperatures of 100.2, 99.6, 99.8. She was re-cultured. She might need to be back on antibiotics again; we will see what he thinks. LABORATORY DATA: She has an 8.7 white count, 9.7 hemoglobin, 31.4 hematocrit, with a 284 platelets. Sodium 140, potassium 4.1, BUN is 12, creatinine 0.5, GFR is greater than 60, sugar is 193, calcium is 9.5, AST is 20, ALT is 27, alk phos is 57. ASSESSMENT AND PLAN: We will check her labs tomorrow, we will see what Infectious Disease has to say, tomorrow is her 8th day. The plan is to discharge her home tomorrow, unless he says otherwise, I will discuss this with Infectious Disease, and she is here for sepsis, urinary tract infection, sacral ulcer, diabetes, hypertension, she has a wound VAC, dementia, aphasia, and cerebrovascular accident. Lake Broderick DO
[2017-04-24] MEDS: Enoxaparin 40 mg Syringe SC SCH (10:33)
[2017-04-24] MEDS: Collagenase 250 Units/gm Ointment(30 gm) TOP SCH (10:36)
--- NOTE | 2017-04-24 13:32 | CP.PCM.PN ---
Subjective - Date & Time of Evaluation Date of Evaluation: 04/24/17 Time of Evaluation: 12:05 - Subjective Subjective: Currently afebrile, not in distress in bed, no diarrhea, no vomiting. Objective - Vital Signs/Intake and Output Vital Signs (last 24 hours): Temp Pulse Resp BP Pulse Ox 99.8 F H 87 16 134/64 98 04/24/17 10:00 04/24/17 10:00 04/24/17 10:00 04/24/17 10:32 04/24/17 10:00 Intake and Output: 04/24/17 04/24/17 06:59 18:59 Output Total 550 Balance -550 - Medications Medications: Current Medications Acetaminophen (Tylenol 325mg Tab) 650 mg PEG Q6H PRN; Protocol PRN Reason: Fever >100.4 F Last Admin: 04/22/17 20:56 Dose: 650 mg Atorvastatin Calcium (Lipitor) 80 mg PEG DIN [facility] PRN Reason: Protocol Last Admin: 04/23/17 18:30 Dose: 80 mg Clopidogrel Bisulfate (Plavix) 75 mg PEG DAILY [facility] PRN Reason: Protocol Last Admin: 04/24/17 10:33 Dose: 75 mg Collagenase (Santyl) 0 gm TOP DAILY [facility] Last Admin: 04/24/17 10:36 Dose: 1 applic Docusate Sodium (Colace Liquid) 100 mg PEG BID [facility] PRN Reason: Protocol Last Admin: 04/24/17 10:32 Dose: 100 mg Enoxaparin Sodium (Lovenox) 40 mg SC DAILY [facility] PRN Reason: Protocol Last Admin: 04/24/17 10:33 Dose: 40 mg Famotidine (Pepcid) 20 mg PEG 2200 [facility] PRN Reason: Protocol Last Admin: 04/23/17 21:40 Dose: 20 mg Sodium Chloride (Sodium Chloride 0.45%) 1,000 mls @ 60 mls/hr IV .[id number] [facility] PRN Reason: Protocol Last Admin: 04/23/17 04:11 Dose: 60 mls/hr Meropenem (Merrem Iv 1 Gm Premix) 50 mls @ 100 mls/hr IVPB Q8 [facility] PRN Reason: Protocol Stop: 05/02/17 22:01 Last Admin: 04/24/17 05:29 Dose: 100 mls/hr Vancomycin HCl (Vancomycin 1gm) 1 gm in 250 mls @ 167 mls/hr IVPB Q12H [facility] PRN Reason: Protocol Stop: 05/02/17 19:31 Last Admin: 04/24/17 06:38 Dose: 167 mls/hr Insulin Detemir (Levemir) 50 unit SC HS [facility] PRN Reason: Protocol Insulin Human Lispro (Humalog Low) 0 units SC ACHS [facility] PRN Reason: Protocol Last Admin: 04/24/17 06:48 Dose: Not Given Losartan Potassium (Cozaar) 25 mg PEG DAILY [facility] PRN Reason: Protocol Last Admin: 04/24/17 10:32 Dose: 25 mg Metoprolol Tartrate (Lopressor) 50 mg PEG 0800,1800 [facility] PRN Reason: Protocol Last Admin: 04/24/17 08:13 Dose: 50 mg Multivitamins/Vitamin C (Multi-Delyn Liquid) 15 ml PEG 0800 [facility] PRN Reason: Protocol Last Admin: 04/24/17 08:14 Dose: 15 ml Ondansetron HCl (Zofran Inj) 4 mg IVP Q6H PRN; Protocol PRN Reason: Nausea/Vomiting Spironolactone (Aldactone) 12.5 mg PEG DAILY [facility] Last Admin: 04/24/17 10:32 Dose: 12.5 mg Tramadol HCl (Ultram) 50 mg GT Q8H PRN; Protocol PRN Reason: Pain, moderate (4-7) Last Admin: 04/23/17 21:38 Dose: 50 mg - Labs Labs: 04/23/17 07:30 04/23/17 07:30 - Constitutional Appears: Chronically Ill - Head Exam Head Exam: NORMAL INSPECTION - Neck Exam Neck Exam: absent: Meningismus - Respiratory Exam Respiratory Exam: Decreased Breath Sounds - Cardiovascular Exam Cardiovascular Exam: +S1, +S2 - GI/Abdominal Exam GI & Abdominal Exam: Soft. absent: Tenderness Assessment and Plan - Assessment and Plan (Free Text) Plan: Assessment new onset sepsis due to left lower lobe HCAP S/P sepsis due to UTI, complicated with indwelling Shen catheter, grew multidrug resistant Enterobacter and E. faecalis low grade fevers, R/O infection DM HTN chronic CHF CAD S/P CABG S/P PEG tube placement S/P shen catheter placement sacral decubitus ulcer stage 4 dementia history of CVA Plan continue Vancomycin and Merrem (day 2); cultures have been negative but PCT is elevated; target 4-7 days of antibiotics; if patient continues to be afebrile tomorrow, may be able to switch to PO antibiotics
--- NOTE | 2017-04-24 13:33 | PN ---
DATE: SUBJECTIVE: She had temperatures for a couple of days. Infectious Disease came back to the chart, started her on Merrem again and she is comfortable in bed in the TCU. She is alert. Her eyes are open, in no acute distress. PHYSICAL EXAMINATION VITAL SIGNS: She has a 98.7 temperature, 63 pulse, 139/78 blood pressure, 18 respiratory rate, 90% O2 sat. HEENT: Head is atraumatic, normocephalic. GENERAL: She is looking at me, in no acute distress. HEART: Regular rate. LUNGS: Clear to auscultation. ABDOMEN: Soft, obese, nontender. EXTREMITIES: Contracted. No edema and has a large sacral ulcer with a wound VAC. MEDICATIONS: She is currently on Aldactone, Colace, Cozaar, insulin, Levemir, Lipitor, Lopressor, Lovenox, Merrem IV now, multivitamin, Pepcid, Santyl, IV fluids, Tylenol, Ultram, vancomycin IV, and Zofran. LABORATORY DATA: She has a 9.8 white count, 9.3 hemoglobin, 29.9 hematocrit with a 345 platelets. Sodium 139, potassium 4.5, BUN is 30, creatinine 0.4. Last blood sugar was 211, sugar is 181, calcium is 9.7, AST is 25, ALT is 27, alkaline phosphatase 81, procalcitonin was high at 2.02. I will increase her Levemir to 50 units. We are going to check her labs tomorrow. When I get the okay from Infectious Disease, we will change it p.o. and then discharge her, so she will be kept in the hospital another day or two. She is here for a large sacral decubitus ulcer, sepsis. Lake Broderick DO
[2017-04-24] MEDS: Sodium Chloride 0.45% 1,000 ML IV SCH ×2 (17:38→17:39)
[2017-04-24] MEDS: Insulin Detemir 100 units/ml Vial (Levemir) SC SCH (22:19)
[2017-04-25] MEDS: Meropenem IV 1 gm in NS 50 ML IVPB SCH ×3 (05:10→22:26)
[2017-04-25] MEDS: Vancomycin 1gm in NS 250ml 1 GM/250 ML BAG IVPB SCH ×2 (06:30→20:00)
[2017-04-25] MEDS: Insulin Lispro (humaLOG) LOW Coverage SC SCH ×4 (06:44→23:25)
[2017-04-25 07:25] LABS: HEMOGLOBIN 8.6 g/dL (12.0-16.0); MEAN CORPUSCULAR HEMOGLOBIN 28.8 pg (25.0-35.0); MEAN CORPUSCULAR HGB CONC 31.3 g/dl (31.0-37.0); RBC 2.99 10^6/uL (3.5-6.1); RED CELL DISTRIBUTION WIDTH 14.3 % (11.5-14.5); WHITE BLOOD COUNT 8.6 10^3/ul (4.5-11.0)
[2017-04-25 08:00] LABS: ALB/GLOB RATIO 0.9 (1.1-1.8); ALBUMIN 2.8 g/dL (3.0-4.8); ALT/SGPT 24 U/L (7-56); AST/SGOT 22 U/L (14-36); BLOOD UREA NITROGEN 18 mg/dL (7-21); GFR AFRICAN-AMERICAN > 60; GFR NON-AFRICAN AMERICAN > 60
[2017-04-25] MEDS: Enoxaparin 40 mg Syringe SC SCH (11:40)
[2017-04-25] MEDS: Multi Vitamins 15 mL UD Oral Solution PEG SCH (11:41)
--- NOTE | 2017-04-25 14:42 | PN ---
DATE: 04/25/2017 SUBJECTIVE: I saw her resting comfortably in bed in the TCU. She is now back on IV antibiotics as per Infectious Disease. PHYSICAL EXAMINATION: GENERAL: She is alert, eyes are open, looks calm. VITAL SIGNS: She has a 99.8 T-max, it is down to 99.4; 91 pulse; 153/78 blood pressure; 20 respiratory rate; 96% O2 sat on room air. HEENT: Head is atraumatic, normocephalic. Eyes are open. Nonverbal. HEART: Regular rate. LUNGS: Decreased breath sounds. ABDOMEN: Soft, obese. EXTREMITIES: No edema. MEDICATIONS: She is on Aldactone, Colace, Cozaar, insulin, Levemir, Lipitor, Lopressor, Lovenox, Merrem IV, vitamins, Pepcid, Plavix, Santyl, IV fluids, Tylenol, Ultram, vancomycin and Zofran. LABORATORY DATA: She has an 8.6 white count, 8.6 hemoglobin, 27.5 hematocrit with 273 platelets. She has 138 sodium, potassium 4.3, BUN is 18, creatinine 0.4, GFR is greater than 60, sugar is 180, calcium is 9, total bili is 0.3, AST is 22, ALT is 24, alk phos 71, total protein is 6. She had a chest x-ray, which showed left lower lobe infiltrate, which is why she is having all this issue right now. ASSESSMENT AND PLAN: I spoke to Infectious Disease, Dr. Kyle. He said I could change it to Levaquin p.o. tomorrow. We will check her temperatures and make sure she is doing okay. I am going to try and discharge her tomorrow if her temperatures are right. I will make sure she is on iron because of her hemoglobin starting to drop a little bit. Lake Broderick DO
--- NOTE | 2017-04-25 15:56 | CP.PCM.PN ---
Subjective - Date & Time of Evaluation Date of Evaluation: 04/25/17 Time of Evaluation: 11:25 - Subjective Subjective: Comfortable, not in distress, fevers have subsided, no vomiting, no diarrhea. No SOB at rest. Objective - Vital Signs/Intake and Output Vital Signs (last 24 hours): Temp Pulse Resp BP Pulse Ox 97.9 F 90 16 138/80 99 04/25/17 10:13 04/25/17 10:13 04/25/17 10:13 04/25/17 10:13 04/25/17 10:13 Intake and Output: 04/25/17 04/25/17 06:59 18:59 Output Total 900 Balance -900 - Medications Medications: Current Medications Acetaminophen (Tylenol 325mg Tab) 650 mg PEG Q6H PRN; Protocol PRN Reason: Fever >100.4 F Last Admin: 04/25/17 05:55 Dose: 650 mg Atorvastatin Calcium (Lipitor) 80 mg PEG DIN [facility] PRN Reason: Protocol Last Admin: 04/24/17 17:37 Dose: 80 mg Clopidogrel Bisulfate (Plavix) 75 mg PEG DAILY [facility] PRN Reason: Protocol Last Admin: 04/24/17 10:33 Dose: 75 mg Collagenase (Santyl) 0 gm TOP DAILY [facility] Last Admin: 04/24/17 10:36 Dose: 1 applic Docusate Sodium (Colace Liquid) 100 mg PEG BID [facility] PRN Reason: Protocol Last Admin: 04/24/17 17:37 Dose: 100 mg Enoxaparin Sodium (Lovenox) 40 mg SC DAILY [facility] PRN Reason: Protocol Last Admin: 04/24/17 10:33 Dose: 40 mg Famotidine (Pepcid) 20 mg PEG 2200 [facility] PRN Reason: Protocol Last Admin: 04/24/17 22:14 Dose: 20 mg Sodium Chloride (Sodium Chloride 0.45%) 1,000 mls @ 60 mls/hr IV .[id number] [facility] PRN Reason: Protocol Last Admin: 04/24/17 17:39 Dose: 60 mls/hr Meropenem (Merrem Iv 1 Gm Premix) 50 mls @ 100 mls/hr IVPB Q8 [facility] PRN Reason: Protocol Stop: 05/02/17 22:01 Last Admin: 04/25/17 05:10 Dose: 100 mls/hr Vancomycin HCl (Vancomycin 1gm) 1 gm in 250 mls @ 167 mls/hr IVPB Q12H [facility] PRN Reason: Protocol Stop: 05/02/17 19:31 Last Admin: 04/25/17 06:30 Dose: 167 mls/hr Insulin Detemir (Levemir) 50 unit SC HS [facility] PRN Reason: Protocol Last Admin: 04/24/17 22:19 Dose: 50 unit Insulin Human Lispro (Humalog Low) 0 units SC ACHS [facility] PRN Reason: Protocol Last Admin: 04/25/17 06:44 Dose: 1 units Losartan Potassium (Cozaar) 25 mg PEG DAILY [facility] PRN Reason: Protocol Last Admin: 04/24/17 10:32 Dose: 25 mg Metoprolol Tartrate (Lopressor) 50 mg PEG 0800,1800 [facility] PRN Reason: Protocol Last Admin: 04/25/17 08:39 Dose: 50 mg Multivitamins/Vitamin C (Multi-Delyn Liquid) 15 ml PEG 0800 [facility] PRN Reason: Protocol Last Admin: 04/24/17 08:14 Dose: 15 ml Ondansetron HCl (Zofran Inj) 4 mg IVP Q6H PRN; Protocol PRN Reason: Nausea/Vomiting Spironolactone (Aldactone) 12.5 mg PEG DAILY [facility] Last Admin: 04/24/17 10:32 Dose: 12.5 mg Tramadol HCl (Ultram) 50 mg GT Q8H PRN; Protocol PRN Reason: Pain, moderate (4-7) Last Admin: 04/23/17 21:38 Dose: 50 mg - Labs Labs: 04/25/17 06:45 04/25/17 06:45 - Constitutional Appears: Non-toxic, Chronically Ill - Head Exam Head Exam: NORMAL INSPECTION - ENT Exam ENT Exam: Mucous Membranes Moist - Neck Exam Neck Exam: absent: Meningismus - Respiratory Exam Respiratory Exam: Decreased Breath Sounds - Cardiovascular Exam Cardiovascular Exam: +S1, +S2 - GI/Abdominal Exam GI & Abdominal Exam: Soft. absent: Tenderness Assessment and Plan - Assessment and Plan (Free Text) Plan: Assessment new onset sepsis due to left lower lobe HCAP S/P sepsis due to UTI, complicated with indwelling Shen catheter, grew multidrug resistant Enterobacter and E. faecalis low grade fevers, R/O infection DM HTN chronic CHF CAD S/P CABG S/P PEG tube placement S/P shen catheter placement sacral decubitus ulcer stage 4 dementia history of CVA Plan continue Vancomycin and Merrem (day 3); cultures have been negative but PCT is elevated; target 4-7 days of antibiotics; if patient continues to be afebrile by tomorrow, may be able to switch to PO antibiotics (ie. Levaquin) to complete antibiotic course
[2017-04-25] MEDS: Ferrous Sulfate 300 mg/5 mL Liq UD PO SCH (18:36)
[2017-04-25] MEDS: Collagenase 250 Units/gm Ointment(30 gm) TOP SCH (18:52)
[2017-04-25] MEDS: Insulin Detemir 100 units/ml Vial (Levemir) SC SCH (22:41)
[2017-04-26] MEDS: Meropenem IV 1 gm in NS 50 ML IVPB SCH ×2 (05:16→13:41)
[2017-04-26] MEDS: Vancomycin 1gm in NS 250ml 1 GM/250 ML BAG IVPB SCH (06:38)
[2017-04-26 07:45] VITALS: RESP 18
[2017-04-26 07:55] LABS: HEMOGLOBIN 9.1 g/dL (12.0-16.0); MEAN CELL VOLUME 91.5 fl (80.0-105.0); MEAN CORPUSCULAR HEMOGLOBIN 29.6 pg (25.0-35.0); MEAN CORPUSCULAR HGB CONC 32.4 g/dl (31.0-37.0); MEAN PLATELET VOLUME 11.3 fl (7.0-11.0); RBC 3.07 10^6/uL (3.5-6.1); RED CELL DISTRIBUTION WIDTH 14.5 % (11.5-14.5); WHITE BLOOD COUNT 10.9 10^3/ul (4.5-11.0)
[2017-04-26 08:28] LABS: ALB/GLOB RATIO 0.9 (1.1-1.8); ALBUMIN 2.7 g/dL (3.0-4.8); ALT/SGPT 31 U/L (7-56); AST/SGOT 22 U/L (14-36); BLOOD UREA NITROGEN 17 mg/dL (7-21); CALCIUM 9.3 mg/dL (8.4-10.5); GFR AFRICAN-AMERICAN > 60; GFR NON-AFRICAN AMERICAN > 60
[2017-04-26] MEDS: Insulin Lispro (humaLOG) LOW Coverage SC SCH ×3 (08:35→16:46)
[2017-04-26] MEDS: Collagenase 250 Units/gm Ointment(30 gm) TOP SCH (09:47)
[2017-04-26] MEDS: Enoxaparin 40 mg Syringe SC SCH (09:48)
[2017-04-26] MEDS: Ferrous Sulfate 300 mg/5 mL Liq UD PO SCH (09:50)
[2017-04-26] MEDS: Multi Vitamins 15 mL UD Oral Solution PEG SCH (09:51)
--- NOTE | 2017-04-26 15:37 | CP.PCM.PN ---
Subjective - Date & Time of Evaluation Date of Evaluation: 04/26/17 Time of Evaluation: 11:30 - Subjective Subjective: Comfortable in bed, low grade temperatures yesterday morning but none in 24 hours, no diarrhea. Objective - Vital Signs/Intake and Output Vital Signs (last 24 hours): Temp Pulse Resp BP Pulse Ox 99.8 F H 95 H 18 151/86 H 99 04/26/17 10:00 04/26/17 10:00 04/26/17 10:00 04/26/17 10:00 04/26/17 10:00 Intake and Output: 04/26/17 04/26/17 06:59 18:59 Intake Total 0 Output Total 1900 400 Balance -1900 -400 - Medications Medications: Current Medications Acetaminophen (Tylenol 325mg Tab) 650 mg PEG Q6H PRN; Protocol PRN Reason: Fever >100.4 F Last Admin: 04/25/17 05:55 Dose: 650 mg Atorvastatin Calcium (Lipitor) 80 mg PEG DIN [facility] PRN Reason: Protocol Last Admin: 04/25/17 18:38 Dose: 80 mg Clopidogrel Bisulfate (Plavix) 75 mg PEG DAILY [facility] PRN Reason: Protocol Last Admin: 04/26/17 09:51 Dose: 75 mg Collagenase (Santyl) 0 gm TOP DAILY [facility] Last Admin: 04/26/17 09:47 Dose: Not Given Docusate Sodium (Colace Liquid) 100 mg PEG BID [facility] PRN Reason: Protocol Last Admin: 04/26/17 09:50 Dose: 100 mg Enoxaparin Sodium (Lovenox) 40 mg SC DAILY [facility] PRN Reason: Protocol Last Admin: 04/26/17 09:48 Dose: 40 mg Famotidine (Pepcid) 20 mg PEG 2200 [facility] PRN Reason: Protocol Last Admin: 04/25/17 22:26 Dose: 20 mg Ferrous Sulfate (Feosol Liq) 300 mg PO BID [facility] Last Admin: 04/26/17 09:50 Dose: 300 mg Meropenem (Merrem Iv 1 Gm Premix) 50 mls @ 100 mls/hr IVPB Q8 [facility] PRN Reason: Protocol Stop: 05/02/17 22:01 Last Admin: 04/26/17 13:41 Dose: 100 mls/hr Vancomycin HCl (Vancomycin 1gm) 1 gm in 250 mls @ 167 mls/hr IVPB Q12H [facility] PRN Reason: Protocol Stop: 05/02/17 19:31 Last Admin: 04/26/17 06:38 Dose: 167 mls/hr Insulin Detemir (Levemir) 50 unit SC HS [facility] PRN Reason: Protocol Last Admin: 04/25/17 22:41 Dose: 50 unit Insulin Human Lispro (Humalog Low) 0 units SC ACHS [facility] PRN Reason: Protocol Last Admin: 04/26/17 12:14 Dose: Not Given Losartan Potassium (Cozaar) 25 mg PEG DAILY [facility] PRN Reason: Protocol Last Admin: 04/26/17 09:49 Dose: 25 mg Metoprolol Tartrate (Lopressor) 50 mg PEG 0800,1800 [facility] PRN Reason: Protocol Last Admin: 04/26/17 09:49 Dose: 50 mg Multivitamins/Vitamin C (Multi-Delyn Liquid) 15 ml PEG 0800 [facility] PRN Reason: Protocol Last Admin: 04/26/17 09:51 Dose: 15 ml Ondansetron HCl (Zofran Inj) 4 mg IVP Q6H PRN; Protocol PRN Reason: Nausea/Vomiting Spironolactone (Aldactone) 12.5 mg PEG DAILY [facility] Last Admin: 04/26/17 09:49 Dose: 12.5 mg Tramadol HCl (Ultram) 50 mg GT Q8H PRN; Protocol PRN Reason: Pain, moderate (4-7) Last Admin: 04/23/17 21:38 Dose: 50 mg - Labs Labs: 04/26/17 07:30 04/26/17 07:30 - Constitutional Appears: Non-toxic, Chronically Ill - Head Exam Head Exam: NORMAL INSPECTION - ENT Exam ENT Exam: Mucous Membranes Moist - Neck Exam Neck Exam: absent: Meningismus - Respiratory Exam Respiratory Exam: Decreased Breath Sounds - Cardiovascular Exam Cardiovascular Exam: +S1, +S2 - GI/Abdominal Exam GI & Abdominal Exam: Soft. absent: Tenderness Assessment and Plan - Assessment and Plan (Free Text) Plan: Assessment new onset sepsis due to left lower lobe HCAP S/P sepsis due to UTI, complicated with indwelling Shen catheter, grew multidrug resistant Enterobacter and E. faecalis low grade fevers, R/O infection DM HTN chronic CHF CAD S/P CABG S/P PEG tube placement S/P shen catheter placement sacral decubitus ulcer stage 4 dementia history of CVA Plan on Vancomycin and Merrem (day 4); cultures have been negative but PCT is elevated; target 4-7 days of antibiotics; can switch to PO antibiotics (ie. Levaquin) to complete antibiotic course
[2017-04-26 17:36] VITALS: BP 135/81; PULSE 91; TEMP 98.8; O2SAT 100
--- NOTE | 2017-04-26 22:59 | DS ---
SUBJECTIVE: She is resting comfortably in bed. She is looking at me. Her eyes are open. She looks fine, at her baseline. She is on Aldactone, Colace, Cozaar, Feosol, Levemir, Lipitor, Lopressor, Lovenox, liquid vitamins, Pepcid, Plavix, Santyl, Tylenol, Ultram and Zofran as needed, that is her baseline medications. She is also on Merrem and vancomycin, which we are going to stop today and we are going to put her on Levaquin 750 p.o. daily for 7 more days. PHYSICAL EXAMINATION: GENERAL: She did well. No acute distress. VITAL SIGNS: She has a 99.6 temp, as high as it has been; 94 pulse, 144/86 blood pressure, 18 respiratory rate and 99% O2 sat on 2 L. HEENT: Head is atraumatic, normocephalic. Her eyes are open. HEART: Regular rate. LUNGS: Decreased breath sounds, but clear. ABDOMEN: Soft, obese. EXTREMITIES: Contracted. She has been through a lot here. She has a large sacral ulcer with a wound VAC. She had sepsis, urinary tract infection, diabetes, hypertension and she had a little bit of pneumonia. She will be able to be discharged today. LABORATORY DATA: She has a 142 sodium, potassium 4.3, BUN is 17, creatinine 0.4, GFR is greater than 60, sugar is 101, calcium is 9.3, total bili is 0.4. AST is 22, ALT is 31, alk phos 66, total protein is 5.8. White count is 10.9, hemoglobin 9.1, hematocrit 28.1 and platelets of 360. She was being seen by Infectious Disease and she will be discharged today to home on Levaquin 750 via PEG tube for 7 more days. Lake Broderick DO
== END 2017-04-26 17:41 | disposition home or self-care (01) | DRG 871 ==
LOC: TRCU 14:56 → UNDODISIN 04-16 12:30
PROVIDERS: ADMIT Family Medicine; ATTEND Family Medicine
PROC: F07Z5FZ Bed Mobility Treatment using Assistive, Adaptive, Supportive or Protective Equipment (ICD-10-PCS; principal; 2017-04-16)
PROC: F08Z4FZ Home Management Treatment using Assistive, Adaptive, Supportive or Protective Equipment (ICD-10-PCS; 2017-04-18)
DX: A41.9 Sepsis, unspecified organism (principal); L89.154 Pressure ulcer of sacral region, stage 4; N39.0 Urinary tract infection, site not specified; J18.9 Pneumonia, unspecified organism; I11.0 Hypertensive heart disease with heart failure; I27.20 Pulmonary hypertension, unspecified; I50.9 Heart failure, unspecified; E11.9 Type 2 diabetes mellitus without complications; F03.90 Unspecified dementia, unspecified severity, without behavioral disturbance, psychotic disturbance, mood disturbance, and anxiety; I25.5 Ischemic cardiomyopathy; I25.10 Atherosclerotic heart disease of native coronary artery without angina pectoris; Y95 Nosocomial condition; Z95.1 Presence of aortocoronary bypass graft; Z93.1 Gastrostomy status; Z86.73 Personal history of transient ischemic attack (TIA), and cerebral infarction without residual deficits; Z74.01 Bed confinement status; Z88.0 Allergy status to penicillin

== ENCOUNTER 2017-05-29 18:52 | Inpatient (IN) | payer MEDICARE, OTHER ==
[2017-05-29 18:52] VITALS: BMI 26.6
--- NOTE | 2017-05-29 19:53 | ED PDOC ---
Arrival/HPI - General Chief Complaint: Fever Time Seen by Provider: 05/29/17 19:05 Historian: Patient - History of Present Illness Narrative History of Present Illness (Text): 05/29/17 19:15 Jennifer Kelly is a 72 year old female, whose past medical history includes dementia, Stroke, DM, HTN, chf, s/p cardiac bypass, Peg tube, Shen catheter, and sacral decubitus ulcer stage 4, who presents to the emergency department complaining of fevers of 101 degrees or higher at home for the past few weeks as per daughter. Patient is nonverbal, history taken from daughter who is her primary caregiver. Patient had a urine sample and wound culture done at home. Patient is on Levaquin, however lab results show bacteria growing in urine and wound culture is resistant to Levaquin. Patient's PMD was called and told to come to the emergency department because the patient needs IV Antibiotics. No other complaints offered at this time. PMD: Dr. Mcnamara Time/Duration: < month Symptom Onset: Gradual Symptom Course: Unchanged Activities at Onset: Rest Context: Home Past Medical History - Provider Review Nursing Documentation Reviewed: Yes - Infectious Disease Hx of Infectious Diseases: None - Cardiac Hx Congestive Heart Failure: Yes Hx MA: Yes Hx Hypertension: Yes - Pulmonary Hx Respiratory Disorders: No - Neurological HX Cerebrovascular Accident: Yes (x2, latest in 2016) Hx Transient Ischemic Attacks (TIA): Yes - HEENT Hx HEENT Disorder: Yes Other/Comment: glasses - Endocrine/Metabolic Hx Diabetes Mellitus Type 2: Yes - Hematological/Oncological Hx Blood Disorders: No - Integumentary Hx Dermatological Disorder: Yes Other/Comment: unstageable sacral wound, ongoing as per pts daughter. - Musculoskeletal/Rheumatological Hx Falls: Yes - Gastrointestinal Hx Gastrointestinal Disorders: Yes Hx Diverticulitis: Yes Other/Comment: PEG tube - Genitourinary/Gynecological Hx Genitourinary Disorders: Yes Hx Incontinence: Yes Other/Comment: shen present - Psychiatric Hx Depression: Yes Hx Substance Use: No - Surgical History Hx Section: Yes (x2) Hx Cholecystectomy: Yes Hx Coronary Artery Bypass Graft: Yes Hx Hysterectomy: Yes - Anesthesia Hx Anesthesia: Yes Hx Anesthesia Reactions: No Hx Malignant Hyperthermia: No Family/Social History - Physician Review Nursing Documentation Reviewed: Yes Family/Social History: No Known Family HX Smoking Status: Never Smoked Hx Alcohol Use: No Hx Substance Use: No Allergies/Home Meds Allergies/Adverse Reactions: Allergies Penicillins Allergy (Verified 05/29/17 19:31) REDNESS Review of Systems - Physician Review All systems were reviewed & negative as marked: Yes - Review of Systems Constitutional: Fevers. absent: Night Sweats Eyes: absent: Vision Changes ENT: absent: Hearing Changes Respiratory: absent: SOB, Cough Cardiovascular: absent: Chest Pain Gastrointestinal: absent: Abdominal Pain Genitourinary Female: absent: Dysuria, Frequency Musculoskeletal: absent: Arthralgias Skin: absent: Rash, Pruritis Neurological: absent: Headache, Dizziness Endocrine: absent: Diaphoresis Hemo/Lymphatic: absent: Adenopathy Psychiatric: absent: Anxiety, Depression Physical Exam - Physical Exam Narrative Physical Exam (Text): Patient does not cooperate with exam Vital Signs Reviewed: Yes Vital Signs Temp Pulse Resp BP Pulse Ox 05/30/17 00:16 100.4 F H 99 H 20 157/86 H 100 05/29/17 19:28 99.7 F H 90 20 137/79 100 05/29/17 19:10 90 20 137/99 H 100 Temperature: Afebrile Blood Pressure: Hypertensive Pulse: Regular Respiratory Rate: Normal Appearance: Positive for: Well-Appearing, Non-Toxic, Comfortable Pain Distress: None Mental Status: Positive for: Alert and Oriented X 3 - Systems Exam Head: Present: Atraumatic, Normocephalic Pupils: Present: PERRL Extroacular Muscles: Present: EOMI Conjunctiva: Present: Normal Mouth: Present: Moist Mucous Membranes Neck: Present: Normal Range of Motion Respiratory/Chest: Present: Clear to Auscultation, Good Air Exchange. No: Respiratory Distress, Accessory Muscle Use Cardiovascular: Present: Regular Rate and Rhythm, Normal S1, S2. No: Murmurs Abdomen: Present: Other (Dark maroon blood in shen catheter; drainage from PEG tube) Back: Present: Normal Inspection Upper Extremity: Present: Normal Inspection. No: Cyanosis, Edema Lower Extremity: Present: Swelling (Bilaterally) Neurological: Present: GCS=15, CN II-XII Intact, Speech Normal Skin: Present: Other (draining wound pus and blood in wound vac) Psychiatric: Present: Alert, Oriented x 3, Normal Insight, Normal Concentration Medical Decision Making ED Course and Treatment: 05/29/17 19:54 Impression: 72 year old female complaining of fevers of 101 degrees or higher at home for the past few weeks as per daughter. Plan: -- Chest X-ray -- VBG and blood culture -- Urine Culture and Urinalysis -- Labs -- Reassess and disposition Prior Visits: Notes and results from previous visits were reviewed. Patient was last seen in the emergency department on 04/11/17 for hematuria and fever. Patient was admitted to hospitalist care for further evaluation. Progress Notes: 05/29/17 20:35 Case discussed with medical scientist who states that, although patients of Dr. Mcnamara get admitted to hospitalist, this patient would need to go under Dr. Broderick's service because Dr. Broderick took care of this patient most recently and has insurance. Case discussed with Dr. Broderick, who states that he will take care of patient. 05/29/17 22:05 Patient Has a positive Troponin. Another EKG and Second Troponin ordered. Gave Aspirin rectally cause patient cannot take anything by mouth. Patient denies any complaints of chest pain. EKG: Ordered, reviewed, and independently interpreted the EKG. Rate : 94 BPM Rhythm : NSR Interpretation : No specific ST/T changes Comparison : No previous EKG for comparison. CXR Impression: As read by me, Left midlobe pneumonia 05/30/17 00:[address] Al who will come down and evaluate patient. 05/30/17 00:45 EKG: Ordered, reviewed, and independently interpreted the EKG. Rate : 102 BPM Rhythm : sinus Tachycardia Interpretation : No specific ST/T changes Comparison : Compared to 05/29/17 22:05 05/30/17 01:20 Dr. Al seen and evaluated patient. We both agree that patient does not need ICU admission and will change admission status to Telemetry. - Lab Interpretations Lab Results: 05/29/17 20:08 05/29/17 20:08 Lab Results 05/29/17 23:45: Lactate Dehydrogenase 379, Total Creatine Kinase 22 L, Troponin I 0.29 H* 05/29/17 20:08: Sodium 140, Chloride 100, Potassium 4.6, Carbon Dioxide 31, Anion Gap 13, BUN 36 H, Creatinine 0.5 L, Est GFR ( Amer) > 60, Est GFR ( Non-Af Amer) > 60, Random Glucose 167 H, Calcium 9.0, Total Bilirubin 0.4, AST 41 H D, ALT 49, Alkaline Phosphatase 103, Lactate Dehydrogenase 492, Total Creatine Kinase 24 L, Troponin I 0.27 H* D, Total Protein 6.9, Albumin 3.4, Globulin 3.5, Albumin/Globulin Ratio 1.0 L 05/29/17 20:08: pO2 62 H, VBG pH 7.43, VBG pCO2 53.0, VBG HCO3 35.2 H, VBG Total CO2 36.8 H, VBG O2 Sat (Calc) 95.2 H, VBG Base Excess 9.1 H, VBG Potassium 5.1, Sodium 139.0, Chloride 103.0, Glucose 175 H, Lactate 1.7, FiO2 21.0, Venous Blood Potassium 5.1 05/29/17 20:08: PT 16.4 H, INR 1.43 H 05/29/17 20:08: WBC 9.1, RBC 3.01 L, Hgb 8.2 L, Hct 26.7 L, MCV 88.7, MCH 27.2, MCHC 30.7 L, RDW 16.6 H, Plt Count 310, MPV 10.9, Gran % 72.5 H, Lymph % (Auto) 18.9 L, [place] % (Auto) 7.6 H, Eos % (Auto) 0.8 L, Baso % (Auto) 0.2, Gran # 6.62 H, Lymph # (Auto) 1.7, [place] # (Auto) 0.7 H, Eos # (Auto) 0.1, Baso # (Auto) 0.02 , ESR 137 H 05/29/17 20:07: Urine Color Yellow, Urine Appearance Clear, Urine pH 7.0, Ur Specific [place] 1.015, Urine Protein Trace H, Urine Glucose (UA) Negative, Urine Ketones Negative, Urine Blood Large H, Urine Nitrate Negative, Urine Bilirubin Negative, Urine Urobilinogen 1.0 H, Ur Leukocyte Esterase Trace H, Urine RBC Tntc, Urine WBC 5 - 10, Ur Epithelial Cells 0 - 2, Urine Bacteria Small I have reviewed the lab results: Yes - RAD Interpretation Radiology Orders: 05/29/17 19:32 CHEST PORTABLE [RAD] Stat - Medication Orders Current Medication Orders: Discontinued Medications Amikacin Sulfate (Amikacin 500 Mg/2ml Inj) 500 mg IV ONCE ONE PRN Reason: Protocol Stop: 05/29/17 20:26 Aspirin (Aspirin Supp) 300 mg RC STAT STA Stop: 05/29/17 21:26 Last Admin: 05/29/17 21:50 Dose: 300 mg Cefepime HCl (Maxipime 2gm) 2 gm in 100 mls @ 100 mls/hr IVPB STAT STA PRN Reason: Protocol Stop: 05/29/17 21:25 Last Admin: 05/29/17 21:10 Dose: 100 mls/hr eMAR Start Stop Document 05/29/17 21:10 OCS (Rec: 05/29/17 21:11 OCS [id number]) Intravenous Solution Start Date 05/29/17 Start Time 21:11 End Date 05/29/17 End time 22:11 Total Infusion Time 60 Amikacin Sulfate 500 mg/ (Sodium Chloride) 102 mls @ 204 mls/hr IV STAT ONE Stop: 05/29/17 21:29 Last Admin: 05/29/17 21:43 Dose: 204 mls/hr eMAR Start Stop Document 05/29/17 21:43 OCS (Rec: 05/29/17 21:43 OCS [id number]) Intravenous Solution Start Date 05/29/17 Start Time 21:43 End Date 05/29/17 End time 22:13 Total Infusion Time 30 - Scribe Statement The provider has reviewed the documentation as recorded by the Cade Rodriguez Provider Scribe Attestation: All medical record entries made by the Scribe were at my direction and personally dictated by me. I have reviewed the chart and agree that the record accurately reflects my personal performance of the history, physical exam, medical decision making, and the department course for this patient. I have also personally directed, reviewed, and agree with the discharge instructions and disposition. Disposition/Present on Arrival - Present on Arrival Any Indicators Present on Arrival: Yes History of DVT/PE: No History of Uncontrolled Diabetes: Yes Urinary Catheter: Yes History of Decub. Ulcer: Yes (current sacral wound with wound vac present) History Surgical Site Infection Following: None - Disposition Have Diagnosis and Disposition been Completed?: Yes Diagnosis: NSTEMI (non-ST elevated myocardial infarction), Sepsis, Pyelonephritis, Sacral decubitus ulcer, stage IV Disposition: HOSPITALIZED Disposition Time: 01:16 Patient Plan: Admission, Telemetry Patient Problems: Current Active Problems Problem Status Onset NSTEMI (non-ST elevated myocardial infarction) Acute Sepsis Acute Pyelonephritis Acute Sacral decubitus ulcer, stage IV Acute Condition: FAIR
[2017-05-29 20:18] LABS: VENOUS BLOOD GAS BASE EXCESS 9.1 mmol/L (0.0-2.0); VENOUS BLOOD GAS PO2 62 mm/Hg (30-55); VENOUS BLOOD PH 7.43 (7.32-7.43)
[2017-05-29 20:24] LABS: BASO # 0.02 K/mm3 (0.0-2.0); BASO % 0.2 % (0.0-3.0); EOS # 0.1 (0.0-0.7); EOS % 0.8 % (1.5-5.0); GRAN # 6.62 (1.4-6.5); GRAN % 72.5 % (50.0-68.0); HEMOGLOBIN 8.2 g/dL (12.0-16.0); LYMPH # 1.7 (1.2-3.4); LYMPH % 18.9 % (22.0-35.0); MEAN CELL VOLUME 88.7 fl (80.0-105.0); MEAN CORPUSCULAR HEMOGLOBIN 27.2 pg (25.0-35.0); MEAN CORPUSCULAR HGB CONC 30.7 g/dl (31.0-37.0); MEAN PLATELET VOLUME 10.9 fl (7.0-11.0); MONO # 0.7 (0.1-0.6); MONO % 7.6 % (1.0-6.0); RBC 3.01 10^6/uL (3.5-6.1); RED CELL DISTRIBUTION WIDTH 16.6 % (11.5-14.5); WHITE BLOOD COUNT 9.1 10^3/ul (4.5-11.0)
[2017-05-29 20:25] LABS: URINE BILIRUBIN NEGATIVE (NEGATIVE); URINE BLOOD LARGE (NEGATIVE); URINE GLUCOSE (UA) NEGATIVE (NEGATIVE); URINE LEUKOCYTE ESTERASE TRACE Leu/uL (NEGATIVE); URINE PROTEIN TRACE mg/dL (<30 mg/dL)
[2017-05-29] MEDS ORDERED: Amikacin 500 mg/2ml Inj IV ONE (20:25)
[2017-05-29] MEDS ORDERED: Cefepime IV 2 gm in NS 2 GM/100 ML BAG IVPB STA (20:26)
[2017-05-29 20:27] LABS: ALBUMIN 3.4 g/dL (3.0-4.8); GFR AFRICAN-AMERICAN > 60; GFR NON-AFRICAN AMERICAN > 60
[2017-05-29 20:30] LABS: INR 1.43 (0.93-1.08); PROTHROMBIN TIME 16.4 SECONDS (9.4-12.5)
[2017-05-29 20:33] LABS: URINE APPEARANCE CLEAR (CLEAR); URINE COLOR YELLOW (YELLOW)
[2017-05-29 20:39] LABS: URINE BACTERIA SMALL (NEG); URINE EPITHELIAL CELLS 0 - 2 /hpf (0-5); URINE RBC TNTC /hpf (0-2)
[2017-05-29 20:59] LABS: ALT/SGPT 49 U/L (7-56); AST/SGOT 41 U/L (14-36); BLOOD UREA NITROGEN 36 mg/dL (7-21); TROPONIN I 0.27 ng/mL
[2017-05-30 00:37] LABS: TROPONIN I 0.29 ng/mL
--- NOTE | 2017-05-30 01:26 | CP.PCM.CON ---
History of Present Illness - History of Present Illness History of Present Illness: PGY-2 ICU consult note 72 year old female, whose past medical history includes dementia, Stroke, DM, HTN, chf, s/p cardiac bypass, Peg tube, Shen catheter, and sacral decubitus ulcer stage 4, who presents to the emergency department with daughter complaining of fevers of 101 degrees or higher at home for the past few weeks. Patient is nonverbal, history taken from daughter who is her primary caregiver. Per daughter patient was recently treated for UTI with Levaquin. Patient recently had a urine sample and wound culture done at home results show bacteria growing in urine and wound culture is resistant to Levaquin. Patient's PMD was called and told to come to the emergency department because the patient will need IV Antibiotics. Per daughter patient has indwelling catheter and was noted to have hematuria today. She denies diarrhea, vomiting. No other complaints offered at this time. ICU was consulted for elevated trops in ED. PMH: dementia, Stroke, DM, HTN, chf, s/p cardiac bypass, Peg tube, Shen catheter, and sacral decubitus ulcer stage 4, PSH: cardiac bypass, cholecystectomy, hysterectomy social history: denies smoking, alcohol use, illicit drug use allergy: penicillins Review of Systems - Review of Systems All systems: reviewed and no additional remarkable complaints except Past Patient History - Infectious Disease Hx of Infectious Diseases: None - Past Social History Smoking Status: Never Smoked - CARDIAC Hx Congestive Heart Failure: Yes Hx Heart Attack: Yes Hx Hypertension: Yes - PULMONARY Hx Respiratory Disorders: No - NEUROLOGICAL HX Cerebrovascular Accident: Yes (x2, latest in 2016) Hx Transient Ischemic Attacks (TIA): Yes - HEENT Hx HEENT Problems: Yes Other/Comment: glasses - ENDOCRINE/METABOLIC Hx Diabetes Mellitus Type 2: Yes - HEMATOLOGICAL/ONCOLOGICAL Hx Blood Disorders: No - INTEGUMENTARY Hx Dermatological Problems: Yes Other/Comment: unstageable sacral wound, ongoing as per pts daughter. - MUSCULOSKELETAL/RHEUMATOLOGICAL Hx Falls: Yes - GASTROINTESTINAL Hx Gastrointestinal Disorders: Yes Hx Diverticulitis: Yes Other/Comment: PEG tube - GENITOURINARY/GYNECOLOGICAL Hx Genitourinary Disorders: Yes Hx Incontinence: Yes Other/Comment: shen present - PSYCHIATRIC Hx Depression: Yes Hx Substance Use: No - SURGICAL HISTORY Hx Section: Yes (x2) Hx Cholecystectomy: Yes Hx Coronary Artery Bypass Graft: Yes Hx Hysterectomy: Yes - ANESTHESIA Hx Anesthesia: Yes Hx Anesthesia Reactions: No Hx Malignant Hyperthermia: No Meds Allergies/Adverse Reactions: Allergies Allergy/AdvReac Type Severity Reaction Status Date / Time Penicillins Allergy REDNESS Verified 05/29/17 19:31 Physical Exam - Constitutional Appears: No Acute Distress, Chronically Ill - Head Exam Head Exam: ATRAUMATIC, NORMOCEPHALIC - Eye Exam Eye Exam: Normal appearance - ENT Exam ENT Exam: Mucous Membranes Moist - Respiratory Exam Respiratory Exam: Clear to Auscultation Bilateral, NORMAL BREATHING PATTERN. absent: Rhonchi, Wheezes, Respiratory Distress - Cardiovascular Exam Cardiovascular Exam: Tachycardia, REGULAR RHYTHM. absent: Diastolic murmur, Systolic Murmur - GI/Abdominal Exam GI & Abdominal Exam: Normal Bowel Sounds, Soft. absent: Distended, Firm, Guarding, Tenderness - Neurological Exam Neurological exam: Alert, Oriented x3 - Skin Skin Exam: Dry, Intact, Normal Color, Warm Additional comments: sacral ulcer Results - Vital Signs Recent Vital Signs: Last Vital Signs Temp 100.4 F H 05/30/17 00:16 Pulse 99 H 05/30/17 00:16 Resp 20 05/30/17 00:16 BP 157/86 H 05/30/17 00:16 Pulse Ox 100 05/30/17 00:16 - Labs Result Diagrams: 05/29/17 20:08 05/29/17 20:08 Assessment & Plan - Assessment and Plan (Free Text) Assessment: 72 year old female, whose past medical history includes dementia, Stroke, DM, HTN, chf, s/p cardiac bypass, Peg tube, Shen catheter, and sacral decubitus ulcer stage 4, who presents to the emergency department with daughter complaining of fevers. Patient was found to have elevated trops possibly due to demand ischemia secondary to infection vs infarction. Patient had relative contraindication to anticoagulation due to gross hemtauria. Patient was given asa in ED, will hold plavix due to gross hematuria. Continue to trend troponins and will get cardiology consult. Will reevaluate and contact cardiology in event troponins overnight marked rises. Currently patient is hemodynamically stable and does not require ICU at this time.
[2017-05-30] MEDS ORDERED: Acetaminophen 650mg/20.3ml solution UD PEG PRN (02:39)
[2017-05-30] MEDS ORDERED: Acetaminophen 650mg/20.3ml solution UD PO ONE (03:59)
[2017-05-30] MEDS: Vancomycin 1gm in NS 250ml 1 GM/250 ML BAG IVPB SCH ×2 (05:34→16:10)
[2017-05-30 05:42] LABS: BASO # 0.01 K/mm3 (0.0-2.0); BASO % 0.1 % (0.0-3.0); EOS % 0.6 % (1.5-5.0); GRAN # 5.45 (1.4-6.5); GRAN % 75.1 % (50.0-68.0); HEMOGLOBIN 8.1 g/dL (12.0-16.0); LYMPH # 1.4 (1.2-3.4); LYMPH % 18.8 % (22.0-35.0); MEAN CELL VOLUME 87.8 fl (80.0-105.0); MEAN CORPUSCULAR HEMOGLOBIN 27.4 pg (25.0-35.0); MEAN CORPUSCULAR HGB CONC 31.2 g/dl (31.0-37.0); MEAN PLATELET VOLUME 10.8 fl (7.0-11.0); MONO # 0.4 (0.1-0.6); MONO % 5.4 % (1.0-6.0); RBC 2.96 10^6/uL (3.5-6.1); RED CELL DISTRIBUTION WIDTH 16.5 % (11.5-14.5); WHITE BLOOD COUNT 7.3 10^3/ul (4.5-11.0)
[2017-05-30 06:54] LABS: ALB/GLOB RATIO 0.9 (1.1-1.8); ALT/SGPT 35 U/L (7-56); AST/SGOT 28 U/L (14-36); BLOOD UREA NITROGEN 29 mg/dL (7-21); CALCIUM 9.3 mg/dL (8.4-10.5); GFR AFRICAN-AMERICAN > 60; GFR NON-AFRICAN AMERICAN > 60; TROPONIN I 0.24 ng/mL
[2017-05-30] MEDS: Insulin Lispro (humaLOG) LOW Coverage SC SCH ×4 (08:00→22:44)
--- NOTE | 2017-05-30 08:15 | CP.PCM.CON ---
History of Present Illness - History of Present Illness History of Present Illness: Surgery: Dr. Daniel CC: Sacral Decub HPI: 72F non-verbal, hx gathered from review of chart. Pmh dementia, Stroke, DM , HTN, chf, s/p cardiac bypass, Peg tube, Shen catheter, and sacral decubitus ulcer stage 4, presented to the ED with daughter complaining of fevers of 101 degrees. Pt was recently treated for UTI with Levaquin. Surgery was consulted for sacral decub. PMH: dementia, Stroke, DM, HTN, chf, s/p cardiac bypass, Peg tube, Shen catheter, and sacral decubitus ulcer stage 4, PSH: cardiac bypass, cholecystectomy, hysterectomy Meds: MAR reviewed ALL: PCN social history: denies smoking, alcohol use, illicit drug use Fhx: non-contributory Review of Systems - Review of Systems Systems not reviewed;Unavailable: Other (non-verbal) Past Patient History - Infectious Disease Hx of Infectious Diseases: None - Past Social History Smoking Status: Never Smoked - CARDIAC Hx Congestive Heart Failure: Yes Hx Heart Attack: Yes Hx Hypertension: Yes - PULMONARY Hx Respiratory Disorders: No - NEUROLOGICAL HX Cerebrovascular Accident: Yes (x2, latest in 2017) Hx Transient Ischemic Attacks (TIA): Yes - HEENT Hx HEENT Problems: Yes Other/Comment: glasses - ENDOCRINE/METABOLIC Hx Diabetes Mellitus Type 2: Yes - HEMATOLOGICAL/ONCOLOGICAL Hx Blood Disorders: No - INTEGUMENTARY Hx Dermatological Problems: Yes Other/Comment: unstageable sacral wound, ongoing as per pts daughter. - MUSCULOSKELETAL/RHEUMATOLOGICAL Hx Falls: Yes - GASTROINTESTINAL Hx Gastrointestinal Disorders: Yes Hx Diverticulitis: Yes Other/Comment: PEG tube - GENITOURINARY/GYNECOLOGICAL Hx Genitourinary Disorders: Yes Hx Incontinence: Yes Other/Comment: shen present - PSYCHIATRIC Hx Depression: Yes Hx Substance Use: No - SURGICAL HISTORY Hx Section: Yes (x2) Hx Cholecystectomy: Yes Hx Coronary Artery Bypass Graft: Yes Hx Hysterectomy: Yes - ANESTHESIA Hx Anesthesia: Yes Hx Anesthesia Reactions: No Hx Malignant Hyperthermia: No Meds Allergies/Adverse Reactions: Allergies Allergy/AdvReac Type Severity Reaction Status Date / Time Penicillins Allergy REDNESS Verified 05/29/17 19:31 - Medications Medications: Current Medications Acetaminophen (Tylenol 650mg/20.3ml Solution Ud) 650 mg PEG Q6H PRN PRN Reason: Fever >100.4 F Amikacin Sulfate 500 mg/ (Sodium Chloride) 102 mls @ 204 mls/hr IVPB Q8 HIRA PRN Reason: Protocol Vancomycin HCl (Vancomycin 1gm) 1 gm in 250 mls @ 167 mls/hr IVPB Q12H HIRA PRN Reason: Protocol Last Admin: 05/30/17 05:34 Dose: 167 mls/hr Insulin Human Lispro (Humalog Low) 0 units SC ACHS HIRA PRN Reason: Protocol Metoprolol Tartrate (Lopressor) 50 mg PEG BID HIRA Physical Exam - Constitutional Appears: Non-toxic, No Acute Distress - Head Exam Head Exam: ATRAUMATIC, NORMOCEPHALIC - Eye Exam Eye Exam: EOMI - ENT Exam ENT Exam: Mucous Membranes Moist - Respiratory Exam Respiratory Exam: NORMAL BREATHING PATTERN. absent: Accessory Muscle Use, Respiratory Distress - GI/Abdominal Exam GI & Abdominal Exam: Soft. absent: Tenderness - Neurological Exam Neurological exam: Alert - Skin Additional comments: Sacral decub w. wound vac in place Results - Vital Signs Recent Vital Signs: Last Vital Signs Temp 99.1 F 05/30/17 03:33 Pulse 99 H 05/30/17 03:29 Resp 20 05/30/17 03:29 BP 147/79 05/30/17 03:29 Pulse Ox 100 05/30/17 03:29 - Labs Result Diagrams: 05/30/17 05:15 05/30/17 05:15 Labs: Laboratory Results - last 24 hr 05/30/17 05/30/17 05/30/17 05:15 05:15 05:21 WBC 7.3 RBC 2.96 L Hgb 8.1 L Hct 26.0 L MCV 87.8 MCH 27.4 MCHC 31.2 RDW 16.5 H Plt Count 282 MPV 10.8 Gran % 75.1 H Lymph % (Auto) 18.8 L [place] % (Auto) 5.4 Eos % (Auto) 0.6 L Baso % (Auto) 0.1 Gran # 5.45 Lymph # (Auto) 1.4 [place] # (Auto) 0.4 Eos # (Auto) 0.0 Baso # (Auto) 0.01 Sodium 140 Potassium 4.2 Chloride 102 Carbon Dioxide 32 Anion Gap 10 BUN 29 H Creatinine 0.5 L Est GFR ( Amer) > 60 Est GFR (Non-Af Amer) > 60 POC Glucose (mg/dL) 165 H Random Glucose 175 H Calcium 9.3 Phosphorus 4.2 Magnesium 2.1 Total Bilirubin 0.6 AST 28 ALT 35 Alkaline Phosphatase 90 Total Creatine Kinase 21 L Troponin I 0.24 H* Total Protein 6.4 Albumin 3.0 Globulin 3.3 Albumin/Globulin Ratio 0.9 L 05/30/17 07:45 WBC RBC Hgb Hct MCV MCH MCHC RDW Plt Count MPV Gran % Lymph % (Auto) [place] % (Auto) Eos % (Auto) Baso % (Auto) Gran # Lymph # (Auto) [place] # (Auto) Eos # (Auto) Baso # (Auto) Sodium Potassium Chloride Carbon Dioxide Anion Gap BUN Creatinine Est GFR ( Amer) Est GFR (Non-Af Amer) POC Glucose (mg/dL) 178 H Random Glucose Calcium Phosphorus Magnesium Total Bilirubin AST ALT Alkaline Phosphatase Total Creatine Kinase Troponin I Total Protein Albumin Globulin Albumin/Globulin Ratio Assessment & Plan - Assessment and Plan (Free Text) Assessment: 72F w. sacral decub -will change wound vac at bedside -air mattress -reposition q2h -d/w attending Ángel PGY3
--- NOTE | 2017-05-30 08:32 | RAD ---
HISTORY: Fever COMPARISON: 04/23/2017. FINDINGS: LUNGS: Limited portable examination due to patient rotation to the right. The lungs are clear. PLEURA: No significant pleural effusion identified, no pneumothorax apparent. CARDIOVASCULAR: The heart is normal in size. Status post median sternotomy. OSSEOUS STRUCTURES: No significant abnormalities. VISUALIZED UPPER ABDOMEN: Normal. OTHER FINDINGS: None. IMPRESSION: Limited portable examination due to patient rotation to the right. Allowing for this, no acute findings.
[2017-05-30] MEDS ORDERED: Enoxaparin 40 mg Syringe SC SCH (10:00)
--- NOTE | 2017-05-30 10:33 | CT ---
PROCEDURE: CT HEAD WITHOUT CONTRAST. HISTORY: h/o of stroke COMPARISON: None available. TECHNIQUE: Axial computed tomography images were obtained through the head/brain without intravenous contrast. Radiation dose: Total exam DLP = 892.90 mGy-cm. This CT exam was performed using one or more of the following dose reduction techniques: Automated exposure control, adjustment of the mA and/or kV according to patient size, and/or use of iterative reconstruction technique. FINDINGS: HEMORRHAGE: No intracranial hemorrhage. BRAIN: There are severe chronic microangiopathic changes. There is no mass, mass effect or abnormal extra-axial fluid collection. There are old lacunar infarctions in bilateral carlson radiata and basal ganglia. There are old infarctions in the right cerebellar hemisphere the There are coarse atherosclerotic calcifications in the cavernous carotid arteries. VENTRICLES: There is moderate age-related global parenchymal volume loss and proportionate enlargement of the ventricles and cortical sulci. CALVARIUM: The skull base and calvarium are normal. PARANASAL SINUSES: There is mild polypoid mucosal thickening in the right maxillary sinus. The remaining included paranasal sinuses are predominantly clear. MASTOID AIR CELLS: Predominantly clear. OTHER FINDINGS: None. IMPRESSION: No acute intracranial abnormality. If there is a persistent focal neurologic deficit and an ongoing clinical concern for acute infarction, an MRI of the brain without intravenous contrast would be a more sensitive modality for evaluation of hyperacute/acute ischemic infarction. Severe chronic microangiopathic changes and moderate age-related global parenchymal volume loss. Old lacunar infarctions in the carlson radiata and basal ganglia.
[2017-05-30] MEDS: Enoxaparin 60 mg Syringe SC SCH (15:02)
--- NOTE | 2017-05-30 16:48 | CON ---
DATE: 05/30/2017 CARDIOLOGY CONSULTATION HISTORY OF PRESENT ILLNESS: The patient is a 72-year-old woman who presents with an altered mental status. PAST MEDICAL HISTORY: Notable for documented dilated cardiomyopathy. She is status post coronary artery bypass surgery and suffers from hypertension and hypercholesterolemia. Currently, the patient is in bed. She is arousable, cannot carry a conversation. REVIEW OF SYSTEMS: Unavailable. PHYSICAL EXAMINATION VITAL SIGNS: Blood pressure is 154/86, the heart rate is in the 90s. NECK: Negative JVD. LUNGS: Without rales. HEART: Reveals S1 and S2. EXTREMITIES: Without edema. LABORATORY DATA: EKG shows normal sinus rhythm with diffuse ST-T flattening. Troponins are 0.29 with a BUN and creatinine are normal. Glucose is 175 with a hemoglobin of 8.1. IMPRESSION: 1. Altered mental status. 2. Non-ST elevation myocardial infarction. 3. Coronary artery disease. 4. History of coronary artery bypass surgery. 5. Ischemic dilated cardiomyopathy. 6. Diabetes mellitus. 7. Anemia. 8. Hypercholesterolemia. PLAN: Given these findings, the patient is placed on Plavix as well as beta blockers. We will add Lovenox twice a day for acute coronary syndrome. Awaiting evaluation for her altered mental status before deciding on whether a cardiac intervention is necessary for a non-STEMI. Tucker Velásquez MD
--- NOTE | 2017-05-30 18:07 | HP ---
HISTORY OF PRESENT ILLNESS: I was asked to come down to the emergency room and take care of this patient. There were some primary care medical doctor issues and they needed somebody to take care of the case, so I agreed to put her on my service. This is a nice 72-year-old female, who has got history of dementia, stroke, diabetes, hypertension, CHF, status post cardiac bypass, PEG tube, Rogers catheter, sacral decubitus ulcer stage IV with a 101 temperature, it could be from the urine or the wound and they asked to put her on my service. She has CVA x2, hypertension, TIAs, wears glasses, diabetes, unstageable wound, diverticulitis history, PEG tube. She is incontinent, she has a Rogers. She has been depressed. Two sections, cholecystectomy, coronary artery bypass graft surgery, hysterectomy. FAMILY HISTORY: Unknown family history. SOCIAL HISTORY: Never smoked. No alcohol. No drugs. ALLERGIES: TO PENICILLIN. REVIEW OF SYSTEMS: There have been fevers, 101 plus. No acute vision or hearing changes. No shortness of breath or cough. No chest pain or palpitations. No abdominal pain, nausea, or vomiting. She is incontinent of urine. No arthralgias. There is a skin issue on her sacrum, it is not stageable IV. No apparent headaches. PHYSICAL EXAMINATION: VITAL SIGNS: She has a 101 temperature, 100.4 in the ER; 99 pulse; 20 respiratory rate; 157/86 blood pressure; 100% O2 sat. HEENT: Head is atraumatic, normocephalic. Extraocular muscles are intact. Throat is dry. NECK: Supple. HEART: Regular rate. Normal S1 and S2. LUNGS: Decreased breath sounds, but clear to auscultation. ABDOMEN: There was dark maroon blood in the Rogers catheter and drainage from the PEG tube. EXTREMITIES: No edema of the extremities. NEUROLOGIC: GCS of 15. Draining wound pus and blood in the wound VAC. Alert and oriented. She has multiple issues. She has positive troponins. LABORATORY DATA: She has a urine, which has large blood. She has 140 sodium, potassium is 4.2, BUN 29, creatinine 0.5, GFR is greater than 60, sugar is 178, calcium 9.3, phosphorus 4.2. Total bilirubin is 0.6, AST is 28, ALT is 35, alkaline phosphatase is 90. The troponins are 0.27, 0.29, 0.24 and total protein is 6.4. Lactate was 1.7. INR is 1.43. White count is 7.3, hemoglobin 8.1, hematocrit 26, platelets are 282. IMPRESSION: So far, we will have consults with Cardiology, Infectious Disease, Surgery. We will keep a close eye on her. She is currently on Amikacin, insulin, Lopressor, Tylenol, and vancomycin. I will put her back on her medications that she takes at home and wait for Cardiology to see her. She is also a diabetic. Lake Broderick DO
--- NOTE | 2017-05-30 21:27 | CARD ---
APPROVED REPORT EKG Measurement Heart [id number] <Conclusion> Sinus rhythm with occasional premature ventricular complexes Minimal voltage criteria for LVH, may be normal variant Nonspecific T wave abnormality Prolonged QT Abnormal ECG
--- NOTE | 2017-05-30 21:35 | CARD ---
APPROVED REPORT EKG Measurement Heart [id number] [place] [id number] [id number] <Conclusion> Sinus tachycardia Nonspecific ST and T wave abnormality Abnormal ECG
--- NOTE | 2017-05-30 21:39 | CARD ---
APPROVED REPORT EKG Measurement Heart [id number] [place] [id number] <Conclusion> Normal sinus rhythm ST & T wave abnormality, consider inferior ischemia Abnormal ECG
[2017-05-30] MEDS: Meropenem IV 1 gm in NS 50 ML IVPB SCH ×2 (22:45)
[2017-05-31] MEDS: Enoxaparin 60 mg Syringe SC SCH ×2 (03:59→14:20)
[2017-05-31] MEDS: Vancomycin 1gm in NS 250ml 1 GM/250 ML BAG IVPB SCH ×2 (04:00→15:17)
--- NOTE | 2017-05-31 04:53 | CON ---
DATE: 05/30/2017 LOCATION: Patient was seen earlier this morning in room 372, bed 2. CHIEF COMPLAINT: Low-grade fever x1 day duration. HISTORY OF PRESENT ILLNESS: This is a 72-year-old female with history of diabetes mellitus, hypertension, chronic congestive heart failure, dilated cardiomyopathy, coronary artery disease, depression, sacral decubitus stage IV, dementia, cerebrovascular accident, urinary tract infection, multidrug resistant Enterobacter, who is now admitted with fever and patient is unable to give any information. Information is gathered from the nurse and from the reports that are available patient is nonverbal. Patient did have urine and wound culture at home and was given Levaquin as outpatient and continued to have the fevers, now admitted for intravenous antibiotics. REVIEW OF SYSTEMS: A 12-point review of systems performed reveals that no diarrhea is reported, no abdominal pain. No headaches or blurred vision. Unable to determine if there is history of frequency and reported no bright red blood per rectum, no melena. PAST MEDICAL HISTORY: Significant for diabetes mellitus, hypertension, congestive heart failure, dilated cardiomyopathy, coronary artery disease, depression, sacral decubitus ulcer which is stage IV, dementia, cerebrovascular accident, urinary tract infection, multidrug-resistant Enterobacter. PAST SURGICAL HISTORY: Significant for coronary bypass graft, PEG tube placement, hysterectomy, cholecystectomy, x2. ALLERGIES: PATIENT IS ALLERGIC TO PENICILLIN. MEDICATIONS: Reviewed, include Lopressor, Pepcid, atorvastatin, tramadol. PHYSICAL EXAMINATION: VITAL SIGNS: Patient is in bed with a temperature of 100.4, heart rate of 108, respiratory rate 20, blood pressure 136/87. HEENT: Unremarkable. NECK: Supple. LUNGS: Decreased breath sounds. HEART: Normal S1, S2. ABDOMEN: Soft, nontender. SKIN: Examination of the sacral is described as stage IV with erythema and evidence of infection. LABORATORY DATA: Reveals white count of 9.1, hemoglobin of 8, platelets of 310 with 72% granulocytosis. Sed rate of . Coagulation is noted. Chemistries are reviewed. BUN of 29, creatinine is 0.5. Troponin is elevated at 0.24 and 0.20. C-reactive protein is also elevated, greater than 15. Urinalysis reveals 5 to 10 wbc's with small bacteria. Microbiology is reviewed. Previous microbiology revealed Enterobacter aerogenes from 04/11/2017, which is relatively sensitive enterococcus, however, an Enterobacter is relatively resistant. Chest x-ray is reportedly negative. ASSESSMENT AND PLAN: This is a 72-year-old female with diabetes, hypertension, chronic congestive heart failure, dilated cardiomyopathy, coronary artery disease, depression, dementia, cerebrovascular accident, urinary tract infection, multidrug-resistant Enterobacter, stage IV decubitus, who was admitted with fever, tachycardia, and failed as outpatient on Levaquin. 1. Sepsis, infected sacral decubitus ulcer, non-ST elevation myocardial infarction. We will treat the patient with vancomycin and meropenem, and we will check on the panculture results and will make further recommendations upon availability of initial results. Omid Tariq MD
[2017-05-31] MEDS: Meropenem IV 1 gm in NS 50 ML IVPB SCH ×3 (05:38→21:23)
--- NOTE | 2017-05-31 06:37 | CON ---
DATE: CARDIOLOGY CONSULTATION REASON FOR CONSULTATION: Elevated troponin. HISTORY OF PRESENT ILLNESS: The patient is a 72-year-old female, who has a history of coronary artery disease status post coronary artery bypass surgery, history of ischemic cardiomyopathy, history of CVA, bedridden with gastrostomy tube feeding, history of stage IV sacral decubitus, was brought in because of fever of 101 degrees as per her daughter. The patient is nonverbal, provides no information, no history. SOCIAL HISTORY: The patient was nonsmoker. MEDICATIONS: Colace 100 mg twice a day via the gastrostomy tube, Cozaar 25 mg once a day, Lipitor 80 mg once a day, Lopressor 50 mg twice a day, Lovenox 50 mg subcutaneous twice a day, meropenem 1 g intravenously q. 8 hours, Plavix 75 mg once a day, vancomycin 1 g intravenously q. 12 hours. REVIEW OF SYSTEMS: persistent ventricular tachycardia. No reported hypotension. PHYSICAL EXAMINATION: GENERAL: The patient is an elderly female who does not appear to be in respiratory distress. VITAL SIGNS: Blood pressure 136/73, heart rate 94, temperature 99.8, respirations 20. HEENT: Pale conjunctivae. CHEST: Absent breath sounds over the bases. HEART: S1, S2, regular. ABDOMEN: Soft. EXTREMITIES: 1+ pitting edema. Scars of prior surgery noted on the right lower leg. LABORATORY DATA: Hemoglobin and hematocrit 8.1 and 26.0. White count and platelet count are within normal limits. SMA-7; sodium 140, potassium 4.2, chloride 102, CO2 32, glucose 175, BUN 29, creatinine 0.5. Troponin 0.24 and 0.20. EKG revealed sinus rhythm at a rate of 100, PVCs noted, nonspecific T-wave changes, prolonged QT interval. The most recent EKG yesterday at around 08:15 p.m. revealed sinus rhythm with ST-T wave abnormality, consider acute ischemia; however, those changes of the T-wave are very subtle. Head CT scan without contrast revealed no acute intracranial abnormality. Severe chronic microangiopathic changes and moderate age-related global parenchymal volume loss. Old lacunar infarcts in the carlson radiata and basal ganglia. Chest x-ray revealed borderline cardiomegaly. Consider left lung infiltrate. ASSESSMENT: 1. Borderline troponin elevation, consider yht-CS-jmhmnllia myocardial infarction. 2. History of coronary disease status post coronary artery bypass surgery. 3. History of cerebrovascular accident in the past. 4. Ischemic cardiomyopathy. 5. Stage IV sacral decubitus. RECOMMENDATIONS: Continue current conservative medical management including Cozaar 25 mg once a day, Lipitor 80 mg once a day, Lopressor 50 mg twice a day, Lovenox 50 mg subcutaneously twice a day, Plavix 75 mg once a day. Continue IV meropenem and IV vancomycin. The patient is not a suitable candidate for invasive cardiac workup. Wesley Hanley MD
[2017-05-31] MEDS: Morphine 4 mg/ml ISec IVP PRN ×2 (07:06→20:29)
[2017-05-31 07:31] LABS: MEAN CELL VOLUME 87.3 fl (80.0-105.0); MEAN CORPUSCULAR HEMOGLOBIN 26.7 pg (25.0-35.0); MEAN CORPUSCULAR HGB CONC 30.5 g/dl (31.0-37.0); MEAN PLATELET VOLUME 11.2 fl (7.0-11.0); RED CELL DISTRIBUTION WIDTH 16.4 % (11.5-14.5); WHITE BLOOD COUNT 6.7 10^3/ul (4.5-11.0)
[2017-05-31] MEDS: Insulin Lispro (humaLOG) LOW Coverage SC SCH ×3 (08:26→18:53)
[2017-05-31 09:13] LABS: ALB/GLOB RATIO 0.9 (1.1-1.8); ALT/SGPT 38 U/L (7-56); AST/SGOT 51 U/L (14-36); BLOOD UREA NITROGEN 28 mg/dL (7-21); CALCIUM 9.1 mg/dL (8.4-10.5); GFR AFRICAN-AMERICAN > 60; GFR NON-AFRICAN AMERICAN > 60
--- NOTE | 2017-05-31 13:11 | PN ---
DATE: SUBJECTIVE: I saw her in bed, resting comfortable. I had a long discussion with the daughter. She tells me that she has been in pain although she is nonverbal, but she knows it very well, so I gave her some morphine for the pain. MEDICATIONS: She is currently on amikacin, Colace, Cozaar, insulin coverage, Lipitor, Lopressor, Lovenox, Merrem IV, morphine for pain, Pepcid, Plavix, Tylenol and vancomycin. She is on her side, which is good, off this infected sacral ulcer. PHYSICAL EXAMINATION: VITAL SIGNS: She has 99.2 temperature, 97 pulse, 163/104 blood pressure, I doubled up her blood pressure medications, I will put her back on some of her medications also. Respiratory rate is 20, oxygen 99% on nasal cannula. HEENT: Head: Atraumatic, normocephalic. She is nonverbal. HEART: Regular rate. LUNGS: Decreased breath sounds, but clear. ABDOMEN: Soft, obese. EXTREMITIES: Mildly contracted and sacral infected ulcer. LABORATORY DATA: She has a 6.7 white count, 8 hemoglobin, if it drops to 7, we might transfuse it; 26.2 hematocrit with 278 platelets. She has a 140 sodium, potassium 4.2, BUN is 29, creatinine 0.5, GFR is greater than 60, sugar is 175, calcium is 9.3, phosphorus 4.2, magnesium 2.1, total bili is 0.6, AST is 28, ALT is 35, alkaline phosphatase 90, total creatine kinase is 21, the troponin get down to 0.24. She is having NSTEMI, the procalcitonin is 5.75. ASSESSMENT AND PLAN: She is being seen by Infectious Disease, Cardiology. She has multiple issues going on. Altered mental status which is at baseline. She is having NSTEMI, sepsis, infected sacral ulcer, renal insufficiency, diabetes, hypertension, urinary tract infection. We will add more medications from her baseline for the blood sugars and her blood pressure. Lake Broderick DO
--- NOTE | 2017-05-31 13:33 | PN ---
DATE: 05/31/2017 CARDIOLOGY FOLLOWUP SUBJECTIVE: The patient is lethargic in bed. No chest pain noted. PHYSICAL EXAMINATION VITAL SIGNS: Blood pressure is 120/76, the heart rate is in the 70s. NECK: Negative JVD. LUNGS: Without rales. HEART: Reveals S1 and S2. EXTREMITIES: Without edema. LABORATORY DATA: Hemoglobin is 8. Chemistries: BUN and creatinine unremarkable. Glucose is 283. IMPRESSION: 1. Non-ST elevation myocardial infarction. 2. Altered mental status. 3. Coronary artery disease. 4. History of coronary artery bypass surgery. 5. Dilated cardiomyopathy. 6. Diabetes mellitus. 7. Hypercholesterolemia. 8. Anemia. PLAN: Given these findings, we will continue the patient on conservative therapy. We will continue her on aspirin, beta-blockers and statin therapy. Tucker Velásquez MD
[2017-05-31] MEDS ORDERED: Insulin Detemir 100 units/ml Vial (Levemir) SC SCH (22:00)
[2017-06-01] MEDS: Insulin Lispro (humaLOG) LOW Coverage SC SCH ×5 (00:58→21:59)
--- NOTE | 2017-06-01 01:37 | PN ---
DATE: 05/31/2017 SUBJECTIVE: The patient is in bed, in no acute distress, was seen early this morning. PHYSICAL EXAMINATION: VITAL SIGNS: The patient is afebrile with a temperature of 98, blood pressure is 150/70, respiratory rate of 18, heart rate of 80. HEENT: Unremarkable. NECK: Supple. LUNGS: Had decreased breath sounds. HEART: Normal S1, S2. ABDOMEN: Soft, nontender. LABORATORY DATA: Laboratory examination reveals the patient to have a white count of 6.7, hemoglobin of 8, platelets of 270. BUN of 28, creatinine of 0.5. Microbiology reveals blood cultures to be negative, urine cultures to be negative. Review of orders reveals the patient to be on meropenem and vancomycin. Dr. Tucker Velásquez's note is reviewed. ASSESSMENT AND PLAN: This is a 72-year-old female with a history of diabetes mellitus, hypertension, chronic congestive heart failure, dilated cardiomyopathy, coronary artery disease, depression, sacral decubitus ulcer, dementia, cerebrovascular accident, urinary tract multi-drug resistant Enterobacter, low-grade fevers, sepsis with infected sacral decubitus ulcer, non-ST elevation myocardial infarction, on vanco and meropenem. Overall, the patient's condition is poor. Dr. Lake Broderick's note is reviewed. Prognosis is poor. Omid Tariq MD
[2017-06-01] MEDS: Enoxaparin 60 mg Syringe SC SCH ×2 (03:38→16:00)
[2017-06-01] MEDS: Vancomycin 1gm in NS 250ml 1 GM/250 ML BAG IVPB SCH ×2 (03:39→21:56)
[2017-06-01] MEDS: Meropenem IV 1 gm in NS 50 ML IVPB SCH ×2 (05:21→21:55)
[2017-06-01 07:16] LABS: HEMOGLOBIN 7.8 g/dL (12.0-16.0); MEAN CELL VOLUME 88.7 fl (80.0-105.0); MEAN CORPUSCULAR HEMOGLOBIN 26.8 pg (25.0-35.0); MEAN CORPUSCULAR HGB CONC 30.2 g/dl (31.0-37.0); RBC 2.91 10^6/uL (3.5-6.1); RED CELL DISTRIBUTION WIDTH 16.4 % (11.5-14.5); WHITE BLOOD COUNT 7.2 10^3/ul (4.5-11.0)
[2017-06-01 07:51] LABS: BLOOD UREA NITROGEN 24 mg/dL (7-21); GFR AFRICAN-AMERICAN > 60; GFR NON-AFRICAN AMERICAN > 60
[2017-06-01 07:52] LABS: ALB/GLOB RATIO 0.9 (1.1-1.8); ALT/SGPT 39 U/L (7-56); AST/SGOT 25 U/L (14-36)
[2017-06-01] MEDS ORDERED: Insulin Detemir 100 units/ml Vial (Levemir) SC SCH (08:48)
--- NOTE | 2017-06-01 09:49 | PN ---
DATE: SUBJECTIVE: I saw her resting comfortably in bed. She is very alert, eyes are open, looking at me that is the best I have seen her since she has been here, back to her old self mentally. She is nonverbal. The daughter takes care of her at home. MEDICATIONS: She is on Colace, Cozaar, insulin, Levemir, Lipitor, Lopressor, Lovenox, Merrem IV, morphine, Pepcid, Plavix, Tylenol and vancomycin. PHYSICAL EXAMINATION: VITAL SIGNS: She has a 98.4 temp, 89 pulse, 143/83 blood pressure, 20 respiratory rate and 100% O2 sat on nasal cannula. HEENT: Head is atraumatic, normocephalic. Eyes wide open, looking at me, almost a smile. HEART: Regular rate. LUNGS: Decreased breath sounds, but clear. ABDOMEN: Soft, obese. EXTREMITIES: Trace edema. She has a sacral infected ulcer. LABORATORY DATA: She has a 7.2 white count, 7.8 hemoglobin, 25.8 hematocrit with 265 platelets. She has a 142 sodium, potassium 4.2, BUN 24, creatinine 0.5, GFR is greater than 60, sugar is 251, calcium is 9, total bili is 0.3, AST is 25, ALT is 39, alk phos 97, total protein 6.1. I am going to transfuse her 2 units of packed red blood cells today. She has dropped below 8 on the hemoglobin. I am going to increase her Levemir to 10 units at nighttime. We will slowly increase the Levemir until we get her blood sugars in the 200s. When cleared by Infectious Disease and Cardiology because she had a shz-UH-yohhivgen myocardial infarction, I will then discharge her home, but she is still on IV antibiotics. She has multidrug urinary tract Enterobacter, sepsis, infected sacral ulcer with [id number]-[id number]-iynfwajrx myocardial infarction. Lake Broderick DO
[2017-06-01 12:24] LABS: IRON 29 ug/dL (45-180)
[2017-06-01 12:34] LABS: % IRON SATURATION 13 % (20-55); TOTAL IRON BINDING CAPACITY 218 ug/dL (265-497)
[2017-06-01] MEDS ORDERED: Morphine 10 mg/5 ml Oral Soln PO PRN (12:44)
--- NOTE | 2017-06-01 13:06 | CT ---
PROCEDURE: CT Lumbar Spine without contrast HISTORY: r/o osteomylitis sacaral decubitis COMPARISON: None. TECHNIQUE: Axial computed tomography images were obtained of the lumbar spine without the use of intravenous contrast. Coronal and sagittal reformatted images were created and reviewed. Radiation dose: Total exam DLP = 1419.84 mGy-cm. This CT exam was performed using one or more of the following dose reduction techniques: Automated exposure control, adjustment of the mA and/or kV according to patient size, and/or use of iterative reconstruction technique. FINDINGS: VERTEBRAE: There is normal alignment of the lumbar vertebral bodies. There is normal lumbar lordosis. There is diffuse bone demineralization. There is no acute fracture or bone destruction. Evaluation of the spinal canal, conus medullaris and nerve roots of cauda equina is limited on noncontrast CT examination. The spinal canal is grossly patent. DISCS/SPINAL CANAL/NEURAL FORAMINA: Limited evaluation of the discs on noncontrast examination. Allowing for this, L1-2: No large disc herniation, neural foraminal or spinal canal stenosis. L2-3: No large disc herniation, neural foraminal or spinal canal stenosis. L3-4: Diffuse posterior disc bulge indents the ventral thecal sac and in conjunction with mild ligamentum flavum infolding results in mild spinal canal stenosis. Mild bilateral facet arthropathy contribute to severe neural foraminal narrowing. L4-5: Diffuse posterior disc bulge indents the ventral thecal sac without spinal canal stenosis. Moderate bilateral facet arthropathy contribute to moderate right and [id number]-ed-mnckqq left neural foraminal narrowing. L5-S1: Diffuse posterior disc bulge indents the ventral thecal sac and in conjunction with ligamentum flavum infolding result in mild spinal canal stenosis. Severe bilateral facet arthropathy contributes to severe neural foraminal narrowing. PARASPINAL SOFT TISSUES: The paraspinous soft tissues are normal. OTHER FINDINGS: There is subcutaneous edema overlying the sacrum and incompletely imaged is midline soft tissue defect which likely represents the de cubitus ulcer. There is also mild presacral soft tissue. IMPRESSION: 1. No evidence of acute fracture, spondylolysis or spondylolisthesis. 2. Mild multilevel degenerative disc disease, worse at L3-4 with mild spinal canal stenosis and severe bilateral neural foraminal narrowing. 3. Incompletely imaged soft tissue defect overlying the sacrum likely related to decubitus ulcer. No definite evidence for osteomyelitis in the visualized sacrum. Also noted is subcutaneous edema/cellulitis overlying the sacrum. Please note MRI is more sensitive for evaluating early osteomyelitis.
--- NOTE | 2017-06-01 14:25 | PN ---
DATE: 06/01/2017 CARDIOLOGY FOLLOWUP SUBJECTIVE: The patient is without distress. She is aphasic. PHYSICAL EXAMINATION: VITAL SIGNS: Blood pressure is 128/80 with the heart rates in the 80s. NECK: Negative JVD. LUNGS: Decreased breath sounds without rales. HEART: Reveals S1, S2. EXTREMITIES: Without edema. LABORATORY DATA: Hemoglobin is down to 7.8. BUN and creatinine are unremarkable. Glucose is 251. IMPRESSION: 1. Qli-KY-ciemomjck myocardial infarction, which is treated medically with aspirin, beta-blockers and statin therapy. 2. Anemia. 3. Coronary artery disease. 4. Altered mental status. 5. History of coronary artery bypass surgery. 6. Dilated cardiomyopathy. 7. Diabetes mellitus. 8. Hypercholesterolemia. PLAN: Given these findings, we will continue treating her conservatively with aspirin, beta-blockers and statin therapy. The patient is scheduled for blood transfusions. No further cardiac workup is necessary. We will discontinue telemetry today. Tucker Velásquez MD
[2017-06-01 16:31] LABS: FERRITIN 94.1 ng/mL
[2017-06-01 17:02] LABS: FOLATE 19.1 ng/mL
--- NOTE | 2017-06-01 20:45 | PN ---
DATE: 06/01/2017 SUBJECTIVE: The patient is in bed, in no acute distress, was seen early this morning. No fevers or chills. PHYSICAL EXAMINATION: VITAL SIGNS: Temperature is 98, blood pressure is 117/60, respiratory rate of 18, heart rate of 80. HEENT: Unremarkable. NECK: Supple. LUNGS: Have decreased breath sounds. HEART: Normal S1, S2. ABDOMEN: Soft, nontender. LABORATORY DATA: Reveals a white count of 7.2, sed rate of 135 and coagulation is noted. Chemistries reveal a BUN of 24, creatinine of 0.5. C-reactive protein is 50 and C-reactive protein high sensitivity is greater than 15. Urinalysis is noted and the patient had a CAT scan of the lumbar spine. Dr. Tucker Velásquez's note is reviewed. ASSESSMENT AND PLAN: This is a 72-year-old female with a history of diabetes mellitus and hypertension, chronic congestive heart failure, dilated cardiomyopathy, coronary artery disease, depression, sacral decubitus ulcer, dementia, cerebrovascular accident, multidrug resistant urinary tract infection, and admitted with sepsis with an infected sacral decubitus ulcer and non-ST elevation myocardial infarction, must rule out underlying osteomyelitis and consider a CAT scan of the sacrum with an elevated sed rate and C-reactive, most likely osteomyelitis, will need 4 weeks of antibiotics and we will order wound cultures. Currently, on vancomycin, meropenem. The patient receives the vancomycin at 03:15 and 15:15. We will order a vancomycin trough level at 14:15 tomorrow. We will order a CAT scan of the pelvis to rule out osteomyelitis. Omid Tariq MD
--- NOTE | 2017-06-01 21:44 | CT ---
EXAM: CT Abdomen and Pelvis Without Intravenous Contrast EXAM DATE/TIME: 06/01/2017 6:08 PM CLINICAL HISTORY: The patient age is 72 years old and is female; Pain; Abdominal pain; Prior surgery; Surgery type: (2) c-sections - hysterectomy - cholecystectomy; Additional info: R/O osteo Facility exam id and description: Ct abdpelscon abd pelvis w/o po or iv cont TECHNIQUE: Axial computed tomography images of the abdomen and pelvis without intravenous contrast. All CT scans at this facility use one or more dose reduction techniques, viz.: automated exposure control; ma/kV adjustment per patient size (including targeted exams where dose is matched to indication; i.e. head); or iterative reconstruction technique. Coronal and sagittal reformatted images were created and reviewed. COMPARISON: CT - CHEST,ABDOMEN,PELVIS W/O CONT 2017-04-11 21:36 FINDINGS: Limitations: Evaluation for abscess is limited by the absence of intravenous contrast. Lung bases: Small bilateral pleural effusions are identified, new compared to the prior study. Small consolidations are visualized the lung bases, suggestive of atelectatic change or infiltrate. Heart: There is mild cardiomegaly. There is coronary artery calcification. ABDOMEN: Liver: Unremarkable. No mass. Gallbladder and bile ducts: Surgical clips are identified within the gallbladder fossa, compatible with cholecystectomy. Pancreas: Normal contour. No ductal dilation. Spleen: No splenomegaly. Adrenals: No mass. Kidneys and ureters: Nonspecific perinephric stranding is again seen bilaterally. There is a hypodense right renal cyst at the lower pole measuring 5.5 cm in diameter, similar to the prior study. No obstructing stones. Stomach and bowel: Colonic diverticula are identified, without acute inflammatory stranding of the adjacent mesentery. Moderate fecal material is identified within the colon and rectum. Additional fecal material is visualized extraocular patient and extending into the gluteal cleft. Appendix: No findings to suggest acute appendicitis. PELVIS: Bladder: A Rogers catheter is identified within the bladder, which is decompressed. Tiny foci of gas are visualized within the bladder, which are likely iatrogenically or infectious in etiology. No stones. Reproductive: Unremarkable as visualized. ABDOMEN and PELVIS: Intraperitoneal space: No free air. Bones/joints: Sternotomy wires are identified. Hypertrophic degenerative changes are noted within the spine. Soft tissues: There is significant presacral and pararectal swelling. There is soft tissue swelling and ulceration posterior to sacrum. This focal cutaneous/subcutaneous defect or ulcer measures approximately 1.8 x 1.1 x 2.8 cm. Erosive changes are identified of the distal sacrum and coccyx, concerning for osteomyelitis. These erosive changes are new compared to the prior study. There is significant soft tissue swelling involving the posterior right thigh and extending out of the field of view of this study. There is edematous change within the subcutaneous tissues of the abdomen, pelvis, and bilateral thighs. Vasculature: There is atherosclerotic calcification of the abdominal aorta. There is stranding adjacent to the common iliac arteries and veins, new compared to the prior study. This may be due to extension of inflammation. There is additional stranding of the fat within the pelvis. Evaluation of the vessels is limited by the absence of intravenous contrast. Lymph nodes: Small intrapelvic and retroperitoneal lymph nodes are visualized, without significant lymphadenopathy. Tubes, lines and devices: A percutaneous gastrostomy tube is identified. IMPRESSION: 1. There is significant presacral and pararectal swelling. There is soft tissue swelling and ulceration posterior to sacrum. Erosive changes are identified of the distal sacrum and coccyx, concerning for osteomyelitis. These erosive changes are new compared to the prior study. This can be further evaluated with MRI with/without contrast. 2. There is significant soft tissue swelling involving the posterior right thigh and extending out of the field of view of this study. 3. Nonspecific perinephric stranding is again seen bilaterally. There is a hypodense right renal cyst at the lower pole measuring 5.5 cm in diameter, similar to the prior study. 4. Diverticulosis. 5. Small bilateral pleural effusions are identified, new compared to the prior study. Small consolidations are visualized the lung bases, suggestive of atelectatic change or infiltrate. 6. There is mild cardiomegaly. 7. A Rogers catheter is identified within the bladder, which is decompressed. Tiny foci of gas are visualized within the bladder, which are likely iatrogenically or infectious in etiology. 8. There is stranding adjacent to the common iliac arteries and veins, new compared to the prior study. This may be due to extension of inflammation. There is additional stranding of the fat within the pelvis. 9. Additional CT findings described above.
[2017-06-01 22:24] VITALS: RESP 20
[2017-06-02] MEDS: Meropenem IV 1 gm in NS 50 ML IVPB SCH ×2 (00:18→05:06)
[2017-06-02] MEDS: Vancomycin 1gm in NS 250ml 1 GM/250 ML BAG IVPB SCH (02:26)
[2017-06-02] MEDS: Enoxaparin 60 mg Syringe SC SCH (02:26)
[2017-06-02 07:21] LABS: MEAN CELL VOLUME 87.6 fl (80.0-105.0); MEAN CORPUSCULAR HEMOGLOBIN 27.6 pg (25.0-35.0); MEAN CORPUSCULAR HGB CONC 31.5 g/dl (31.0-37.0); MEAN PLATELET VOLUME 11.2 fl (7.0-11.0); RBC 3.7 10^6/uL (3.5-6.1); RED CELL DISTRIBUTION WIDTH 16.6 % (11.5-14.5); WHITE BLOOD COUNT 7.2 10^3/ul (4.5-11.0)
[2017-06-02 07:29] LABS: HEMOGLOBIN 10.2 g/dL (12.0-16.0)
[2017-06-02 07:33] LABS: ALBUMIN 3.2 g/dL (3.0-4.8); ALT/SGPT 37 U/L (7-56); AST/SGOT 29 U/L (14-36); BLOOD UREA NITROGEN 24 mg/dL (7-21); CALCIUM 9.3 mg/dL (8.4-10.5); GFR AFRICAN-AMERICAN > 60; GFR NON-AFRICAN AMERICAN > 60
[2017-06-02] MEDS: Insulin Lispro (humaLOG) LOW Coverage SC SCH ×3 (08:35→16:56)
[2017-06-02] MEDS ORDERED: Insulin Detemir 100 units/ml Vial (Levemir) SC SCH (08:55)
--- NOTE | 2017-06-02 14:12 | PN ---
DATE: SUBJECTIVE: I saw her resting comfortably this morning in bed. Her eyes are open. She looks like she is very comfortable and peaceful, in no acute distress, in no apparent distress, and does not look like she is in any pain. MEDICATIONS: She is on Colace, Cozaar, insulin, iron IV, Levemir, Lipitor, Lopressor, Lovenox, Merrem IV, morphine, Pepcid, Plavix, Tylenol, and vancomycin IV. PHYSICAL EXAMINATION: VITAL SIGNS: Temperature 98.9, pulse is between 87 and 130, blood pressure 139/99 down to 142/74 blood pressure, respiratory rate 20, O2 sat 99% on nasal cannula. HEENT: Head is atraumatic, normocephalic. HEART: Regular rate. LUNGS: Decreased breath sounds, but clear. ABDOMEN: Soft, obese. EXTREMITIES: Contracted. SKIN: She also has a stage IV sacral decubitus with a wound VAC, which is not good at all, hopefully it will begin to heal. LABORATORY DATA: She has a 7.2 white count, 10.2 hemoglobin, 32.4 hematocrit with a 258 platelets. She has sodium 146, potassium is 4, BUN 24, creatinine 0.5, GFR is greater than 60. Sugar is 225, we will increase the Levemir. Calcium 9.3, AST was 29, ALT was 37, alkaline phosphatase 97, total protein 6.6. ASSESSMENT AND PLAN: She is being seen by Infectious Disease and Cardiology. She had some CAT scans done. She has a lot of things going on. There is a significant presacral and parasacral swelling. There is soft tissue swelling, ulceration posterior to the sacrum, erosive changes identified in the distal sacrum and coccyx concerning for osteomyelitis. It is very possible that she has got osteomyelitis right now. She will need to have 4 weeks of IV antibiotics. I do not know if she could go home and the daughter could take care of this. She might need to go to [facility] for 4 weeks for the IV antibiotics to the severe stage IV sacral ulcer, which is now osteomyelitis. We will continue with aggressive treatment and care. Discussed with the Case Management. Also, had a Non-ST elevation myocardial infarction. She has diabetes and renal insufficiency. [place] Broderick DO [facility] # [id number]
[2017-06-02 16:39] VITALS: BP 109/61; PULSE 86; TEMP 98; O2SAT 100
--- NOTE | 2017-06-02 21:20 | CP.PCM.PN ---
Subjective - Date & Time of Evaluation Date of Evaluation: 06/02/17 Time of Evaluation: 08:40 - Subjective Subjective: Comfortable in bed, no fevers, not in distress. Objective - Vital Signs/Intake and Output Vital Signs (last 24 hours): Temp Pulse Resp BP Pulse Ox 98.3 F 86 20 133/79 100 06/01/17 22:15 06/01/17 22:15 06/01/17 22:15 06/01/17 22:15 06/01/17 06:00 Intake and Output: 06/01/17 06/02/17 18:59 06:59 Intake Total 330 0 Output Total 1000 Balance -670 0 - Medications Medications: Current Medications Acetaminophen (Tylenol 650mg/20.3ml Solution Ud) 650 mg PEG Q6H PRN PRN Reason: Fever >100.4 F Atorvastatin Calcium (Lipitor) 80 mg PEG DIN [facility] Last Admin: 06/01/17 18:12 Dose: 80 mg Clopidogrel Bisulfate (Plavix) 75 mg PEG DAILY [facility] Last Admin: 06/01/17 10:07 Dose: 75 mg Docusate Sodium (Colace Liquid) 100 mg PEG BID [facility] Last Admin: 06/01/17 18:14 Dose: 100 mg Enoxaparin Sodium (Lovenox) 50 mg SC Q12H [facility] PRN Reason: Protocol Last Admin: 06/01/17 16:00 Dose: 50 mg Famotidine (Pepcid) 20 mg PEG BID [facility] Last Admin: 06/01/17 18:13 Dose: 20 mg Vancomycin HCl (Vancomycin 1gm) 1 gm in 250 mls @ 167 mls/hr IVPB Q12H [facility] PRN Reason: Protocol Last Admin: 06/01/17 21:56 Dose: Not Given Meropenem (Merrem Iv 1 Gm Premix) 50 mls @ 100 mls/hr IVPB Q8 [facility] PRN Reason: Protocol Stop: 06/08/17 18:58 Last Admin: 06/01/17 21:55 Dose: Not Given Iron Sucrose 100 mg/ Sodium (Chloride) 105 mls @ 210 mls/hr IVPB ONCE ONE Stop: 06/02/17 10:29 Insulin Detemir (Levemir) 10 unit SC HS [facility] Last Admin: 06/01/17 22:00 Dose: 10 unit Insulin Human Lispro (Humalog Low) 0 units SC ACHS [facility] PRN Reason: Protocol Last Admin: 06/01/17 21:59 Dose: Not Given Losartan Potassium (Cozaar) 50 mg PEG DAILY [facility] Last Admin: 06/01/17 10:07 Dose: 50 mg Metoprolol Tartrate (Lopressor) 50 mg PEG BID [facility] Last Admin: 06/01/17 18:11 Dose: 50 mg Morphine Sulfate (Morphine Oral Soln) 3 mg PO Q4H PRN PRN Reason: Pain, severe (8-10) - Labs Labs: 06/01/17 06:30 06/01/17 06:30 PT 16.4 SECONDS (9.4-12.5) H 05/29/17 20:08 INR 1.43 (0.93-1.08) H 05/29/17 20:08 - Constitutional Appears: Chronically Ill - Head Exam Head Exam: NORMAL INSPECTION - Respiratory Exam Respiratory Exam: Decreased Breath Sounds - Cardiovascular Exam Cardiovascular Exam: +S1, +S2 - GI/Abdominal Exam GI & Abdominal Exam: Soft. absent: Tenderness Assessment and Plan - Assessment and Plan (Free Text) Plan: Assessment sepsis due to infected sacral decubitus ulcer with probable osteomyelitis on top of NSTEMI history of left lower lobe HCAP S/P sepsis due to UTI, complicated with indwelling Shen catheter, grew multidrug resistant Enterobacter and E. faecalis low grade fevers, R/O infection DM HTN chronic CHF CAD S/P CABG S/P PEG tube placement S/P shen catheter placement sacral decubitus ulcer stage 4 dementia history of CVA Plan continue Vancomycin and Merrem - follow up plan for debridement by Surgery and follow up wound cx patient will need 4 weeks of antibiotics with weekly ESR, CRP, CBC, CMP while on antibiotics
== END 2017-06-02 22:45 | disposition home health service (06) | DRG 871 ==
LOC: ED 18:52 → ERH 05-30 00:57 → 3RSO 05-30 04:38 → 2RSO 05-30 16:06 → 5RNO 06-02 09:45
PROVIDERS: ADMIT Family Medicine; ATTEND Family Medicine
PROC: 30233N1 Transfusion of Nonautologous Red Blood Cells into Peripheral Vein, Percutaneous Approach (ICD-10-PCS; principal; 2017-06-01)
DX: A41.9 Sepsis, unspecified organism (principal); L89.154 Pressure ulcer of sacral region, stage 4; I21.4 Non-ST elevation (NSTEMI) myocardial infarction; I42.0 Dilated cardiomyopathy; R47.01 Aphasia; M86.9 Osteomyelitis, unspecified; E11.69 Type 2 diabetes mellitus with other specified complication; I11.0 Hypertensive heart disease with heart failure; I50.9 Heart failure, unspecified; I25.10 Atherosclerotic heart disease of native coronary artery without angina pectoris; F03.90 Unspecified dementia, unspecified severity, without behavioral disturbance, psychotic disturbance, mood disturbance, and anxiety; E78.00 Pure hypercholesterolemia, unspecified; D64.9 Anemia, unspecified; I25.5 Ischemic cardiomyopathy; R31.0 Gross hematuria; F32.9 Major depressive disorder, single episode, unspecified; R41.82 Altered mental status, unspecified; Z95.1 Presence of aortocoronary bypass graft; Z86.73 Personal history of transient ischemic attack (TIA), and cerebral infarction without residual deficits; Z88.0 Allergy status to penicillin; Z79.4 Long term (current) use of insulin; Z93.1 Gastrostomy status; I25.2 Old myocardial infarction